=== PATIENT | female | born 1940 | race African-American/Black ===

== ENCOUNTER 2020-03-07 12:06 | Outpatient (CLI) | payer MEDICARE, BC ==
--- NOTE | 2020-03-07 12:20 | CT ---
EXAM: Brain CTWithout contrast: HISTORY: Weakness COMPARISON: None FINDINGS: Mild atrophy and chronic white matter ischemic change. No focal mass or midline shift. No intra or extra-axial hemorrhage. Sinuses and mastoids are clear of acute process. IMPRESSION: No mass or bleed or other significant acute intracranial process.
== END 2020-03-07 12:07 | disposition home or self-care (01) ==
LOC: CT 12:06
DX: R53.1 Weakness (principal)
CPT/HCPCS: 70450

== ENCOUNTER 2020-04-04 21:05 | Inpatient (IN) | payer MEDICARE, BC ==
--- NOTE | 2020-04-04 21:28 | CT ---
EXAM: CT brain without contrast HISTORY: Right-sided weakness that is partially resolved COMPARISON: 03/07/2020 TECHNIQUE: Multiple contiguous axial images were obtained and a CT of the brain without contrast. FINDINGS: Intracranial vascular calcifications are seen. There are scattered hypodensities in the sub cortical and periventricular white matter consistent with small vessel ischemic disease. There is no evidence of hydrocephalus, intracranial hemorrhage, or extra-axial fluid collection. The calvarium and overlying soft tissues are unremarkable. The visualized paranasal sinuses and masto id air cells are well aerated. IMPRESSION: No evidence of acute intracranial abnormality Dr. Tobias notified of findings at 9:26 PM on 04/04/2020
[2020-04-04 21:32] LABS: Hemoglobin 10.9 g/dL (12.0-16.0); Mean Corpuscular HGB CONC 32.4 g/dL (32.0-36.0); Mean Corpuscular Hemoglobin 27.7 pg (27.0-31.0); Mean Corpuscular Volume 85.5 fL (78.0-98.0); Mean Platelet Volume 8.7 fL (7.4-10.4); Platelet Count 305 thou/uL (130-400); RBC Distribution Width 13.9 % (11.5-14.5); Red Blood Cell (RBC) Count 3.93 mill/uL (4.20-5.40); White Blood Cell (WBC) Count 17.3 thou/uL (4.8-10.8)
[2020-04-04 21:45] LABS: ALT (SGPT) 26 U/L (8-55); AST (SGOT) 19 U/L (5-34); Albumin 3.3 g/dL (3.4-4.8); Alkaline Phosphatase 87 U/L (40-110); Anion Gap 16 mmol/L (10-20); BUN (Urea Nitrogen) 102 mg/dL (9.8-20.1); Bilirubin, Total 0.3 mg/dL (0.2-1.2); Calc. Creatinine Clearance 0 mL/min (70-130); Calcium 9.6 mg/dL (7.8-10.44); Carbon Dioxide 16 mmol/L (23-31); Chloride 106 mmol/L (98-107); Globulin 3.5 g/dL (2.4-3.5); Glucose 153 mg/dL (83-110); Potassium 5.7 mmol/L (3.5-5.1); Protein, Total 6.8 g/dL (5.8-8.1); Sodium 132 mmol/L (136-145)
[2020-04-04 21:55] LABS: Band 2 % (5-11); Eosinophils 4 % (0-10); Lymphocytes 8 % (21-51); MDiff Complete? YES; Monocytes 3 % (0-10); Neutrophil 83 % (42-75)
[2020-04-04 22:11] LABS: Acetaminophen Less than 6.0 mcg/mL (10.0-30.0); Alcohol Less than 10 mg/dL (Less than 10); Salicylate Less than 8.0 mg/dL (15.0-30.0)
--- NOTE | 2020-04-04 22:22 | RAD ---
EXAM: Single view of the chest HISTORY: Sepsis and stroke COMPARISON: 03/16/2005 FINDINGS: Single view of the chest shows a normal sized cardiomediastinal silhouette. Bilateral pulm onary vascular congestion is seen. There is no evidence of consolidation, mass, or pleural effusion. Degenerative changes are seen in the spine. IMPRESSION: No evidence of acute cardiopulmonary disease
[2020-04-04 22:43] LABS: Bacteria/HPF 4+ HPF (None Seen); Bilirubin Negative (Negative); Blood, Urine 2+ (Negative); Clarity Extra Turbid (Clear); Glucose, Urine (Dipstick) Normal (Negative); Ketone, Urine Negative (Negative); Leukocyte 500 Leu/uL (Negative); Nitrite Negative (Negative); Protein, Urine (Dipstick) 300 mg/dL (Neg-Trace); RBC/HPF Greater than 50 HPF (0-3); Specific Gravity, Urine 1.017 (1.002-1.036); Squamous Epithelial None Seen HPF (0-3); Urobilinogen Normal mg/dL (Less than 2); WBC/HPF Greater than 50 HPF (0-3); pH, Urine 7.5 (5.0-9.0)
[2020-04-04] MEDS ORDERED: Piperacillin/Tazobactam 4.5 GM VIAL ONE (22:53)
[2020-04-04 22:54] LABS: Amphetamine Not Detected (NotDetected); Barbiturates Screen Not Detected (NotDetected); Benzodiazepine Screen Detected (NotDetected); Cocaine Metabolite Screen Not Detected (NotDetected); Medtox Control Line Valid? VALID (VALID); Medtox Reader # READER 4; Methadone Not Detected (NotDetected); Methamphetamine Not Detected (NotDetected); Opiate Screen Not Detected (NotDetected); Oxycodone Screen Not Detected (NotDetected); Phencyclidine (PCP) Not Detected (NotDetected); THC/Cannabinoid Screen Not Detected (NotDetected); Tricyclic Screen Not Detected (NotDetected)
--- NOTE | 2020-04-04 23:20 | PDOC.HHP ---
Hospitalist ERICA AMS History of Present Illness: This is an 79-year-old female patient with a history of diabetes mellitus type 2, obesity, SHARLENE, gout arthritis and bilateral lower limb weakness who was brought in by EMS due to concerns of right-sided stroke. She was brought in by EMS however at presentation she was able to move all her limbs spontaneously. She was however generally weak. Initial vital signs BP 118/55, respiratory rate 14, pulse 72, saturating 100% on room air temperature 98.1. WBC was 17.3, hemoglobin 10.9, platelets 305, sodium 132, potassium 5.7 creatinine 3.58 from a baseline of 0.99 about 3 weeks ago. UDS detected benzodiazepines and urinalysis concerning for extra turbid urine with 300 protein, 500 leukocyte esterases and greater than 50 red blood cells and WBCs. Urine bacteria is 4+. Chest x-ray showed no evidence of acute cardiopulmonary process. Head CT revealed no evidence of acute intracranial abnormality. She was assessed to have UTI and started on vancomycin and Zosyn. She also received 1 L normal saline. Hospitalist team consulted for admission. Allergies/Adverse Reactions: Allergy/AdvReac Type Severity Reaction Status Date / Time No Known Drug Allergies Allergy Unverified 04/05/20 00:09 Home Medications: Medication Instructions Recorded Confirmed Type Allopurinol [Zyloprim] 300 mg PO DAILY 04/05/20 04/05/20 History Amlodipine [Norvasc] 1 tab PO HS 04/05/20 04/05/20 History Aspirin 1 tab PO HS 04/05/20 04/05/20 History Atorvastatin Calcium [Lipitor] 1 tab PO HS 04/05/20 04/05/20 History Famotidine 1 tab PO DAILY 04/05/20 04/05/20 History Gabapentin 1 tab PO BID 04/05/20 04/05/20 History HumaLOG [HumaLOG Vial] 04/05/20 History Hydrochlorothiazide 1 tab PO DAILY 04/05/20 04/05/20 History Levothyroxine Sodium 1 tab PO DAILY 04/05/20 04/05/20 History [Levothyroxine] Lisinopril 1 tab PO DAILY 04/05/20 04/05/20 History Metoprolol Tartrate 2 tab PO DAILY 04/05/20 04/05/20 History Oxybutynin [Ditropan] 1 tab PO BID PRN 04/05/20 04/05/20 History glipiZIDE [Glipizide] 1 tablet PO BID 04/05/20 04/05/20 History metFORMIN [Glucophage] 1 tab PO BID 04/05/20 04/05/20 History traMADol HCl [Tramadol HCl] 1 tab PO Q4HR PRN 04/05/20 04/05/20 History Past History: PMHx:Obesity, SHARLENE, hypertension, GERD, gout, osteoarthritis, overactive bladder. PSHx: No significant history FHx: None of significance Social: No alcohol or smoking history. Lives in skilled nursing Hospitalist Exam General Appearance: awake alert ENT: normocephalic atraumatic Heart: RRR, no murmur, no gallops, no rubs Respiratory: CTAB, no wheezes, no ronchi Gastrointestinal: soft, non-tender, non-distended, normal bowel sounds Extremities: no cyanosis, no clubbing, no edema Extremities - other findings: Bilateral ankle and shoulder tenderness Neurological: cranial nerve grossly intact, no focal deficits Psychiatric: normal affect, normal behavior, A&O x 3 Hospitalist Results Result Diagrams: 04/04/20 21:13 04/04/20 21:13 Lab results: Laboratory Last Values WBC 17.3 thou/uL (4.8-10.8) H 04/04/20 21:13 RBC 3.93 mill/uL (4.20-5.40) L 04/04/20 21:13 Hgb 10.9 g/dL (12.0-16.0) L 04/04/20 21:13 Hct 33.6 % (36.0-47.0) L 04/04/20 21:13 MCV 85.5 fL (78.0-98.0) 04/04/20 21:13 MCH 27.7 pg (27.0-31.0) 04/04/20 21:13 MCHC 32.4 g/dL (32.0-36.0) 04/04/20 21:13 RDW 13.9 % (11.5-14.5) 04/04/20 21:13 Plt Count 305 thou/uL (130-400) 04/04/20 21:13 MPV 8.7 fL (7.4-10.4) 04/04/20 21:13 Neutrophils % (Manual) 83 % (42-75) H 04/04/20 21:13 Band Neuts % (Manual) 2 % (5-11) L 04/04/20 21:13 Lymphocytes % (Manual) 8 % (21-51) L 04/04/20 21:13 Monocytes % (Manual) 3 % (0-10) 04/04/20 21:13 Eosinophils % (Manual) 4 % (0-10) 04/04/20 21:13 Lymphocytes # Not Reportable 04/04/20 21:13 Sodium 132 mmol/L (136-145) L 04/04/20 21:13 Potassium 5.7 mmol/L (3.5-5.1) H 04/04/20 21:13 Chloride 106 mmol/L (98-107) 04/04/20 21:13 Carbon Dioxide 16 mmol/L (23-31) L 04/04/20 21:13 Anion Gap 16 mmol/L (10-20) 04/04/20 21:13 BUN 102 mg/dL (9.8-20.1) H 04/04/20 21:13 Creatinine 3.58 mg/dL (0.6-1.1) H 04/04/20 21:13 Estimated GFR (MDRD) 15 04/04/20 21:13 Glucose 153 mg/dL (83-110) H 04/04/20 21:13 POC Glucose 153 mg/dL (70-100) H 04/04/20 21:08 Lactic Acid 1.9 mmol/L (0.5-2.2) 04/04/20 22:34 Calcium 9.6 mg/dL (7.8-10.44) 04/04/20 21:13 Total Bilirubin 0.3 mg/dL (0.2-1.2) 04/04/20 21:13 AST 19 U/L (5-34) 04/04/20 21:13 ALT 26 U/L (8-55) 04/04/20 21:13 Alkaline Phosphatase 87 U/L (40-110) 04/04/20 21:13 Serum Total Protein 6.8 g/dL (5.8-8.1) 04/04/20 21:13 Albumin 3.3 g/dL (3.4-4.8) L 04/04/20 21:13 Globulin 3.5 g/dL (2.4-3.5) 04/04/20 21:13 Albumin/Globulin Ratio 0.9 g/dL (1.2-2.2) L 04/04/20 21:13 Urine Color [place] (Yellow) 04/04/20 22:30 Urine Clarity Extra Turbid (Clear) A 04/04/20 22:30 Urine pH 7.5 (5.0-9.0) 04/04/20 22:30 Ur Specific [place] 1.017 (1.002-1.036) 04/04/20 22: Urine Protein 300 mg/dL (Neg-Trace) A 04/04/20: Urine Glucose (UA) Normal mg/dL (Negative) 04/04/20: Urine Ketones Negative mg/dL (Negative) 04/04/20 22: Urine Blood 2+ (Negative) A 04/04/20: Urine Nitrite Negative (Negative) 04/04/20: Urine Bilirubin Negative (Negative) 04/04/20: Urine Urobilinogen Normal mg/dL (Less than 2) 04/04/20:30 Ur Leukocyte Esterase 500 Louise/uL (Negative) A 04/04/20: Urine RBC Greater than 50 HPF (0-3) A 04/04/20:30 Urine WBC Greater than 50 HPF (0-3) A 04/04/20:30 Ur Squamous Epith Cells None Seen HPF (0-3) 04/04/20 22:30 Urine Bacteria 4+ HPF (None Seen) A 04/04/20:30 Salicylates Less than 8.0 mg/dL (15.0-30.0) L 04/04/20 21:13 Urine Opiates Screen Not Detected (NotDetected) 04/04/20 22: Ur Oxycodone Screen Not Detected (NotDetected) 04/04/20 22: Urine Methadone Screen Not Detected (NotDetected) 04/04/20 22:30 Ur Propoxyphene Screen Not Detected (NotDetected) 04/04/20 22: Acetaminophen Less than 6.0 mcg/mL (10.0-30.0) L 04/04/20 21: Ur Barbiturates Screen Not Detected (NotDetected) 04/04/20 22:30 Ur Tricyclics Screen Not Detected (NotDetected) 04/04/20 22:30 Ur Phencyclidine Scrn Not Detected (NotDetected) 04/04/20 22:30 Ur Amphetamines Screen Not Detected (NotDetected) 04/04/20 22:30 U Methamphetamines Scrn Not Detected (NotDetected) 04/04/20 22:30 U Benzodiazepines Scrn Detected (NotDetected) H 04/04/20 22:30 U Cocaine Metab Screen Not Detected (NotDetected) 04/04/20 22:30 U Cannabinoids Screen Not Detected (NotDetected) 04/04/20 22:30 Drug Screen Comment () 04/04/20 22:30 Plasma Alcohol Less than 10 mg/dL (Less than 10) 04/04/20 21:13 Hospitalist H&P A/P Plan: This is an 79-year-old female patient history of SHARLENE, gout, arthritis hypertension and diabetes mellitus who presents on account of altered mental status and weakness likely secondary to urinary tract infection. Acute encephalopathy Likely secondary to UTI Treat UTI blood cultures Received Vanco and Zosyn Continue on Zosyn for now Follow-up. Urinary tract infection We will treat as above Hyperkalemia Potassium 5.7 We will monitor Give insulin and glucose Kayexalate. Hyponatremia Mild Monitor BMP TONY Creatinine at 3.58 from a baseline of 0.993 weeks ago. This is probably prerenal Received 1 L normal saline we will continue hydration Repeat BMP in a.m. Nephrology consult if worsens. Hypokalemia potassium 5.7 Likely due to TONY No concerning EKG changes Gout with mild flare Start prednisone on account of TONY Monitor VT prophylaxisHeparin
[2020-04-04] MEDS ORDERED: Vancomycin 1 GM/200 ML BAG ONE (23:36)
[2020-04-05 00:57] VITALS: BMI 35.2
[2020-04-05] MEDS ORDERED: Sodium Chloride 0.9% 1,000 ML IV SCH (01:00)
[2020-04-05] MEDS ORDERED: predniSONE 20 MG TAB PO SCH (01:00)
[2020-04-05 05:10] LABS: Chloride 109 mmol/L (98-107); Potassium 5.3 mmol/L (3.5-5.1); Sodium 135 mmol/L (136-145)
[2020-04-05 05:11] LABS: Calcium 9.6 mg/dL (7.8-10.44); Glucose 117 mg/dL (83-110)
[2020-04-05 05:13] LABS: Anion Gap 18 mmol/L (10-20); Carbon Dioxide 13 mmol/L (23-31)
[2020-04-05 05:15] LABS: BUN (Urea Nitrogen) 95 mg/dL (9.8-20.1); Calc. Creatinine Clearance 18 mL/min (70-130)
[2020-04-05] MEDS: Piperacillin/Tazobactam 2.25 GM in Sodium Chloride 0.9% 100 ML IVPB SCH ×3 (06:02→20:35)
[2020-04-05] MEDS ORDERED: Morphine 2 MG/ML VIAL SLOW IVP SCH (06:30)
[2020-04-05] MEDS ORDERED: Ondansetron PF 4 MG/2 ML Vial IVP PRN (07:34)
[2020-04-05] MEDS ORDERED: GUAIFENESIN SF SOLN 200 MG/10 ML UDCUP PO PRN (07:34)
[2020-04-05] MEDS ORDERED: Loperamide HCl 2 MG CAP PO PRN (07:34)
[2020-04-05] MEDS ORDERED: Cepastat Lozenges 1 LOZ PO PRN (07:34)
[2020-04-05] MEDS ORDERED: hydrALAZINE 20 MG/ML VIAL SLOW IVP PRN (07:34)
[2020-04-05] MEDS ORDERED: Calcium Carbonate 500 MG ChewTAB PO PRN (07:34)
[2020-04-05] MEDS ORDERED: Zolpidem Tartrate 5 MG TAB PO PRN (07:34)
[2020-04-05] MEDS ORDERED: Sodium Chloride 0.65% Nasal 44 ML BOT EA NARE PRN (07:34)
[2020-04-05] MEDS ORDERED: HYDROcodone/Acetaminophen 5/325 mg Tablet PO PRN (07:34)
[2020-04-05] MEDS ORDERED: Ondansetron ODT 4 MG TAB SL PRN (07:34)
[2020-04-05] MEDS ORDERED: Loratadine 10 MG TAB PO PRN (07:34)
[2020-04-05] MEDS ORDERED: Senokot S 8.6-50 MG TAB PO PRN (07:34)
[2020-04-05] MEDS ORDERED: Bisacodyl 5 MG TAB PO PRN (07:34)
[2020-04-05] MEDS ORDERED: Dextrose 5% in Water 1,000 ML IV PRN (07:37)
[2020-04-05] MEDS ORDERED: Dextrose 50% Abboject 50 ML SYRINGE SLOW IVP PRN (07:37)
[2020-04-05] MEDS ORDERED: HumaLOG 300 UNITS/3 ML VIAL SC PRN (07:37)
[2020-04-05 07:50] LABS: Band 4 % (5-11); Eosinophils 5 % (0-10); Lymphocytes 5 % (21-51); MDiff Complete? YES; Mean Corpuscular HGB CONC 33.5 g/dL (32.0-36.0); Mean Corpuscular Volume 86.5 fL (78.0-98.0); Mean Platelet Volume 8.5 fL (7.4-10.4); Monocytes 5 % (0-10); Neutrophil 81 % (42-75); Platelet Count 215 thou/uL (130-400); Platelet Morphology Comment Appears Adequate; RBC Distribution Width 13.8 % (11.5-14.5); White Blood Cell (WBC) Count 21.8 thou/uL (4.8-10.8)
[2020-04-05] MEDS ORDERED: FLU VACC QS2020-21(65YR UP)/PF 240 MCG/0.7 ML SYRINGE IM ONE (09:00)
[2020-04-05] MEDS ORDERED: Heparin 5,000 UNITS/ML VIAL SC SCH (09:00)
[2020-04-05] MEDS: Famotidine 20 MG TAB PO SCH (09:42)
[2020-04-05 09:43] LABS: SARS-CoV-2 PCR by NAA Not Detected (NotDetected)
--- NOTE | 2020-04-05 09:44 | ULT ---
Exam: Bilateral renal ultrasound complete: HISTORY: A KI, acute kidney injury COMPARISON: None FINDINGS: Right kidney: 8.1 x 3.5 x 3.8 cm Left kidney: 9.6 x 4.6 x 4.9 cm No renal hydronephrosis. No evidence for abnormal perinephric process. No solid or cystic renal mass. Unremarkable appearing bladder. IMPRESSION: Unremarkable bilateral renal ultrasound. No hydronephrosis or perinephric process.
[2020-04-05] MEDS ORDERED: Dextrose 5% in Water 1,000 ML IV SCH (09:45)
--- NOTE | 2020-04-05 09:48 | PDOC.HOSPP ---
- Subjective Encounter Date: 04/05/20 Encounter Time: 08:30 Subjective: Patient seen and examined. No new complaints. No overnight events - Objective Vital Signs & Weight: Vital Signs (12 hours) Temp Pulse Resp BP Pulse Ox 04/05/20 07:29 98.3 F 79 16 98/63 100 04/05/20 05:07 97.3 F L 79 18 123/78 100 04/05/20 00:35 98.1 F 75 18 119/72 98 Weight Weight 174 lb 3.2 oz Result Diagrams: 04/05/20 07:28 04/05/20 04:40 Additional Labs: Accuchecks 04/05/20 04/04/20 04:57 21:08 POC Glucose 108 H 153 H Radiology Reviewed by me: Yes (Renal ultrasound normal) Hospitalist ROS - Review of Systems ROS unobtainable: due to mental status Constitutional: reports: weakness, malaise. denies: fever, chills, sweats, other Respiratory: denies: cough, dry, shortness of breath, hemoptysis, SOB with excertion, pleuritic pain, sputum, wheezing, other Cardiovascular: denies: chest pain, palpitations, orthopnea, paroxysmal noc. dyspnea, edema, light headedness, other Gastrointestinal: denies: nausea, vomiting, abdominal pain, diarrhea, constipation, melena, hematochezia, other Genitourinary: denies: dysuria, frequency, incontinence, hematuria, retention, other Musculoskeletal: denies: neck pain, shoulder pain, arm pain, back pain, hand pain, leg pain, foot pain, other Other: Review of system limited due to cognitive status - Medication Medications: Active Medications Generic Name Dose Route Start Last Admin Trade Name Freq PRN Reason Stop Dose Admin Piperacillin Sod/Tazobactam 100 mls @ 200 mls/hr 04/05/20 06:00 04/05/20 06:02 Sod 2.25 gm/ Sodium Chloride IVPB 100 mls Q8HR ALECIA Administration Sodium Chloride 1,000 mls @ 100 mls/hr 04/05/20 01:00 04/05/20 02:57 Normal Saline 0.9% IV 1,000 mls .Q10H ALECIA Administration Hospitalist Exam Vitals: Vital Signs (12 hours) Temp Pulse Resp BP Pulse Ox 01/31/21 07:29 98.3 F 79 16 98/63 100 04/05/20 05:07 97.3 F L 79 18 123/78 100 04/05/20 00:35 98.1 F 75 18 119/72 98 Weight Weight 174 lb 3.2 oz General Appearance: NAD, awake alert Eye: PERRL, anicteric sclera ENT: normocephalic atraumatic, no oropharyngeal lesions, dry oral mucosa Neck: symmetric, no JVD, no thyromegaly Heart: RRR, no murmur, no gallops, no rubs Respiratory: no wheezes, no rales, no ronchi Gastrointestinal: soft, non-tender, non-distended, normal bowel sounds Extremities: no cyanosis, no clubbing, no edema Skin: normal turgor, no lesions Neurological: no focal deficits Musculoskeletal: normal tone, normal strength Psychiatric: normal affect, normal behavior Hosp A/P (1) Acute kidney failure Status: Acute (2) Metabolic acidosis Code(s): E87.2 - ACIDOSIS Status: Acute (3) Hyperkalemia Code(s): E87.5 - HYPERKALEMIA Status: Acute (4) Sepsis with metabolic encephalopathy Code(s): A41.9 - SEPSIS, UNSPECIFIED ORGANISM; R65.20 - SEVERE SEPSIS WITHOUT SEPTIC SHOCK; G93.41 - METABOLIC ENCEPHALOPATHY Status: Acute (5) UTI (urinary tract infection) Status: Acute Qualifiers: Urinary tract infection type: acute cystitis Hematuria presence: without hematuria Qualified Code(s): N30.00 - Acute cystitis without hematuria (6) Obesity (BMI 30-39.9) Code(s): E66.9 - OBESITY, UNSPECIFIED Status: Chronic (7) Diabetes type 2, controlled Code(s): E11.9 - TYPE 2 DIABETES MELLITUS WITHOUT COMPLICATIONS Status: Chronic Qualifiers: Diabetes mellitus middle or intermediate school principal insulin use: with fdc use Diabetes mellitus complication status: without complication Qualified Code(s): E11.9 - Type 2 diabetes mellitus without complications; Z79.4 - jail (current) use of insulin (8) Hypertension Code(s): I10 - ESSENTIAL (PRIMARY) HYPERTENSION Status: Chronic (9) Dyslipidemia Code(s): E78.5 - HYPERLIPIDEMIA, UNSPECIFIED Status: Chronic (10) Hypothyroidism Code(s): E03.9 - HYPOTHYROIDISM, UNSPECIFIED Status: Chronic Qualifiers: Hypothyroidism type: unspecified Qualified Code(s): E03.9 - Hypothyroidism, unspecified (11) Gout Code(s): M10.9 - GOUT, UNSPECIFIED Status: Chronic Qualifiers: Gout etiology: unspecified cause Chronicity: chronic Laterality: unspecified laterality Presence of tophus: without tophus - Plan old records reviewed/req, plan discussed w/ family, continue antibiotics, DVT proph w/heparin Because of acute kidney failure with metabolic acidosis and hyperkalemia we will change IV fluid to dextrose water with 3 ampoules of sodium bicarbonate at 125 mill per hour, will repeat laboratory parameters tomorrow Continue Zosyn as per renally adjusted dose, follow-up on culture result, Renal ultrasound ordered and unremarkable Discussed with the patient's family member and updated about plan of care I have reconciled her home medication, Monitor blood sugar and replace according to sliding scale Medication reviewed and continue provide symptomatic and supportive care
[2020-04-05 10:33] LABS: CRP (Inflammatory) 4.14 mg/dL (= or < 0.5); Uric Acid 4.6 mg/dL (2.6-6.0)
[2020-04-05] MEDS: Sodium Bicarbonate 150 MEQ in Dextrose 5% in Water 1,000 ML IV SCH ×2 (11:12→20:22)
[2020-04-05] MEDS: HumaLOG 300 UNITS/3 ML VIAL SC PRN (18:20)
[2020-04-05] MEDS: Atorvastatin Calcium 20 MG TAB PO SCH (20:18)
[2020-04-05] MEDS: Heparin 5,000 UNITS/ML VIAL SC SCH (20:22)
[2020-04-06] MEDS: Sodium Bicarbonate 150 MEQ in Dextrose 5% in Water 1,000 ML IV SCH (05:14)
[2020-04-06] MEDS: Piperacillin/Tazobactam 2.25 GM in Sodium Chloride 0.9% 100 ML IVPB SCH (05:14)
[2020-04-06] MEDS: HumaLOG 300 UNITS/3 ML VIAL SC PRN ×2 (05:16→16:42)
[2020-04-06] MEDS: Levothyroxine Sodium 100 MCG TAB PO SCH (05:16)
[2020-04-06 07:35] LABS: ALT (SGPT) 19 U/L (8-55); AST (SGOT) 12 U/L (5-34); Albumin 3.2 g/dL (3.4-4.8); Alkaline Phosphatase 88 U/L (40-110); Anion Gap 14 mmol/L (10-20); BUN (Urea Nitrogen) 56 mg/dL (9.8-20.1); Bilirubin, Total 0.3 mg/dL (0.2-1.2); Calc. Creatinine Clearance 34 mL/min (70-130); Calcium 9.8 mg/dL (7.8-10.44); Carbon Dioxide 22 mmol/L (23-31); Chloride 106 mmol/L (98-107); Globulin 3.3 g/dL (2.4-3.5); Glucose 247 mg/dL (83-110); Potassium 5.2 mmol/L (3.5-5.1); Protein, Total 6.5 g/dL (5.8-8.1); Sodium 137 mmol/L (136-145)
[2020-04-06 07:50] LABS: Hemoglobin 9.8 g/dL (12.0-16.0); Mean Corpuscular HGB CONC 32.4 g/dL (32.0-36.0); Mean Corpuscular Hemoglobin 27.4 pg (27.0-31.0); Mean Corpuscular Volume 84.6 fL (78.0-98.0); Mean Platelet Volume 8.8 fL (7.4-10.4); Platelet Count 235 thou/uL (130-400); RBC Distribution Width 13.5 % (11.5-14.5); Red Blood Cell (RBC) Count 3.59 mill/uL (4.20-5.40); White Blood Cell (WBC) Count 16.5 thou/uL (4.8-10.8)
[2020-04-06] MEDS ORDERED: predniSONE 20 MG TAB PO SCH (08:00)
[2020-04-06 08:53] LABS: Band 5 % (5-11); Lymphocytes 13 % (21-51); MDiff Complete? YES; Monocytes 8 % (0-10); Neutrophil 72 % (42-75); Platelet Morphology Comment Appears Adequate; Polychromasia SLIGHT = 2-3 cells (100X) (0-2/hpf); Reactive Lymphocytes 2 % (0-10)
[2020-04-06] MEDS ORDERED: Metoprolol Tartrate 50 MG TAB PO SCH (09:00)
[2020-04-06] MEDS ORDERED: glipiZIDE 10 MG TAB PO SCH (09:00)
[2020-04-06] MEDS ORDERED: Gabapentin 300 MG CAP PO SCH (09:00)
[2020-04-06] MEDS: Saccharomyces boulardii 250 MG CAP PO SCH (10:02)
[2020-04-06] MEDS: Famotidine 20 MG TAB PO SCH (10:02)
[2020-04-06] MEDS: Gabapentin 100 MG CAP PO SCH ×2 (10:02→19:55)
[2020-04-06] MEDS: Metoprolol Tartrate 25 MG TAB PO SCH ×2 (10:02→19:55)
[2020-04-06] MEDS: Aspirin 325 MG TAB PO SCH (10:02)
[2020-04-06] MEDS: Heparin 5,000 UNITS/ML VIAL SC SCH ×2 (10:03→19:55)
[2020-04-06] MEDS: cefTRIAXone\\ROCEPHIN 1 GM in Sodium Chloride 0.9% 100 ML IVPB SCH (10:04)
[2020-04-06] MEDS: Sodium Chloride 0.45% 1,000 ML IV SCH ×3 (10:04→19:53)
[2020-04-06] MEDS: Allopurinol 300 MG TAB PO SCH (10:16)
--- NOTE | 2020-04-06 10:48 | PDOC.HOSPP ---
- Subjective Encounter Date: 04/06/20 Encounter Time: 08:30 Subjective: Patient seen and examined. No overnight events - Objective Vital Signs & Weight: Vital Signs (12 hours) Temp Pulse Resp BP Pulse Ox 04/06/20 07:00 98.5 F 97 18 125/74 99 04/05/20 23:50 98.0 F 103 H 18 124/74 100 Weight Weight 174 lb 3.2 oz I&O: 04/05/20 04/06/20 04/07/20 06:59 06:59 06:59 Intake Total 1930 Output Total 1100 Balance 830 Result Diagrams: 04/06/20 07:10 04/06/20 07:10 Additional Labs: Accuchecks 04/06/20 04/05/20 04/05/20 05:14 20:16 16:05 POC Glucose 276 H 402 H 376 H 04/05/20 11:35 POC Glucose 232 H Hospitalist ROS - Review of Systems Respiratory: denies: cough, dry, shortness of breath, hemoptysis, SOB with excertion, pleuritic pain, sputum, wheezing, other Cardiovascular: denies: chest pain, palpitations, orthopnea, paroxysmal noc. dyspnea, edema, light headedness, other Gastrointestinal: denies: nausea, vomiting, abdominal pain, diarrhea, constipation, melena, hematochezia, other Genitourinary: denies: dysuria, frequency, incontinence, hematuria, retention, other Musculoskeletal: denies: neck pain, shoulder pain, arm pain, back pain, hand pain, leg pain, foot pain, other - Medication Medications: Active Medications Generic Name Dose Route Start Last Admin Trade Name Freq PRN Reason Stop Dose Admin Hydrocodone Bitart/Acetaminophen 1 tab 04/05/20 07:34 04/06/20 10:43 Hydrocodone/Acetaminophen 5/325 Mg Tablet PO 1 tab Q4H PRN Administration Moderate Pain (4-6) Allopurinol 300 mg 04/06/20 09:00 04/06/20 10:16 Allopurinol 300 Mg Tab PO 300 mg DAILY ALECIA Administration Aspirin 325 mg 04/06/20 09:00 04/06/20 10:02 Aspirin 325 Mg Tab PO 325 mg DAILY ALECIA Administration Atorvastatin Calcium 20 mg 04/05/20 21:00 04/05/20 20:18 Atorvastatin Calcium 20 Mg Tab PO 20 mg HS ALECIA Administration Famotidine 20 mg 04/05/20 09:00 04/06/20 10:02 Famotidine 20 Mg Tab PO 20 mg DAILY ALECIA Administration Gabapentin 100 mg 04/06/20 09:00 04/06/20 10:02 Gabapentin 100 Mg Cap PO 100 mg BID ALECIA Administration Heparin Sodium (Porcine) 5,000 units 04/05/20 21:00 04/06/20 10:03 Heparin 5,000 Units/Ml Vial SC 5,000 units Q12HR ALECIA Administration Ceftriaxone Sodium 1 gm/ 100 mls @ 200 mls/hr 04/06/20 09:00 04/06/20 10:04 Sodium Chloride IVPB 100 mls 0900 ALECIA Administration Sodium Chloride 1,000 mls @ 100 mls/hr 04/06/20 08:15 04/06/20 10:04 1/2 Normal Saline IV 1,000 mls .Q10H ALECIA Administration Insulin Human Lispro 0 units 04/05/20 07:37 04/06/20 05:16 Humalog 300 Units/3 Ml Vial SC 4 unit .MILD SLIDING SCALE PRN Administration Mild Correctional Scale Insulin Human Lispro 0 units 04/05/20 07:37 04/05/20 20:36 Humalog 300 Units/3 Ml Vial SC 5 units .BEDTIME SLIDING SC PRN Administration Bedtime Correctional Scale Levothyroxine Sodium 100 mcg 04/06/20 06:00 04/06/20 05:16 Levothyroxine Sodium 100 Mcg Tab PO 100 mcg 0600 ALECIA Administration Metoprolol Tartrate 25 mg 04/06/20 09:00 04/06/20 10:02 Metoprolol Tartrate 25 Mg Tab PO 25 mg Q12HR ALECIA Administration Saccharomyces Boulardii 250 mg 04/06/20 09:00 04/06/20 10:02 Saccharomyces Boulardii 250 Mg Cap PO 250 mg DAILY ALECIA Administration Hospitalist Exam Vitals: Vital Signs (12 hours) Temp Pulse Resp BP Pulse Ox 04/06/20 07:00 98.5 F 97 18 125/74 99 04/05/20 23:50 98.0 F 103 H 18 124/74 100 Weight Weight 174 lb 3.2 oz General Appearance: NAD, awake alert Eye: PERRL, anicteric sclera ENT: normocephalic atraumatic, no oropharyngeal lesions Neck: supple, symmetric, no JVD, no thyromegaly Heart: RRR, no murmur, no gallops, no rubs Respiratory: no wheezes, no rales, no ronchi Gastrointestinal: soft, non-tender, non-distended, normal bowel sounds Extremities: no cyanosis, no clubbing, no edema Skin: normal turgor, no lesions Neurological: no new deficit Musculoskeletal: normal tone, normal strength Psychiatric: normal affect, normal behavior Hosp A/P (1) Acute kidney failure Status: Acute (2) Metabolic acidosis Code(s): E87.2 - ACIDOSIS Status: Acute (3) Hyperkalemia Code(s): E87.5 - HYPERKALEMIA Status: Acute (4) Sepsis with metabolic encephalopathy Code(s): A41.9 - SEPSIS, UNSPECIFIED ORGANISM; R65.20 - SEVERE SEPSIS WITHOUT SEPTIC SHOCK; G93.41 - METABOLIC ENCEPHALOPATHY Status: Acute (5) UTI (urinary tract infection) Status: Acute Qualifiers: Urinary tract infection type: acute cystitis Hematuria presence: without hematuria Qualified Code(s): N30.00 - Acute cystitis without hematuria (6) Obesity (BMI 30-39.9) Code(s): E66.9 - OBESITY, UNSPECIFIED Status: Chronic (7) Diabetes type 2, controlled Code(s): E11.9 - TYPE 2 DIABETES MELLITUS WITHOUT COMPLICATIONS Status: Chronic Qualifiers: Diabetes mellitus equipment operator intermodal yard insulin use: with equipment operator intermodal yard use Diabetes mellitus complication status: without complication Qualified Code(s): E11.9 - Type 2 diabetes mellitus without complications; Z79.4 - snf (current) use of insulin (8) Hypertension Code(s): I10 - ESSENTIAL (PRIMARY) HYPERTENSION Status: Chronic (9) Dyslipidemia Code(s): E78.5 - HYPERLIPIDEMIA, UNSPECIFIED Status: Chronic (10) Hypothyroidism Code(s): E03.9 - HYPOTHYROIDISM, UNSPECIFIED Status: Chronic Qualifiers: Hypothyroidism type: unspecified Qualified Code(s): E03.9 - Hypothyroidism, unspecified (11) Gout Code(s): M10.9 - GOUT, UNSPECIFIED Status: Chronic Qualifiers: Gout etiology: unspecified cause Chronicity: chronic Laterality: unspecified laterality Presence of tophus: without tophus - Plan old records reviewed/req, plan discussed w/ family, continue antibiotics, PT/OT, social sciences lecturer, DVT proph w/heparin Her kidney function significantly improving, today we will discontinue bicarbonate drip and change to half-normal saline NS at 100 mL/h and will repeat BMP tomorrow Today we will change Zosyn to Rocephin based on culture result and will consider sending her home correction with oral antibiotic Tomorrow we will repeat labs and if improving then will consider discharging tomorrow Start PT OT as tolerated Discussed with the patient's family member and updated about plan of care Medications reviewed and continue provide symptomatic and supportive care
[2020-04-06] MEDS: traMADol HCl 50 MG TAB PO PRN ×2 (12:52→20:05)
[2020-04-06] MEDS: glipiZIDE 5 MG TAB PO SCH (16:41)
[2020-04-06] MEDS: Atorvastatin Calcium 20 MG TAB PO SCH (19:55)
[2020-04-06] MEDS ORDERED: Aspirin 325 MG TAB PO SCH (21:00)
[2020-04-06] MEDS ORDERED: Amlodipine 10 MG TAB PO SCH (21:00)
[2020-04-06] MEDS ORDERED: Amlodipine 5 MG TAB PO SCH (21:00)
[2020-04-07] MEDS: Levothyroxine Sodium 100 MCG TAB PO SCH (05:34)
[2020-04-07] MEDS: Sodium Chloride 0.45% 1,000 ML IV SCH (05:34)
[2020-04-07] MEDS: traMADol HCl 50 MG TAB PO PRN (05:41)
[2020-04-07 05:46] LABS: #Basophils 0.1 thou/uL (0.0-0.2); #Eosinphils 0.6 thou/uL (0.0-0.7); #Lymphocytes 2.6 thou/uL (1.20-3.40); #Monocytes 0.8 thou/uL (0.11-0.59); #Neutrophils 10.6 thou/uL (1.40-6.50); %Basophils 0.6 % (0.0-1.0); %Eosinophils 4.2 % (0.0-10.0); %Lymphocytes 17.8 % (21.0-51.0); %Monocytes 5.2 % (0.0-10.0); %Neutrophils 72.2 % (42.0-75.0); Hemoglobin 10.1 g/dL (12.0-16.0); Mean Corpuscular HGB CONC 33.3 g/dL (32.0-36.0); Mean Corpuscular Hemoglobin 28.8 pg (27.0-31.0); Mean Corpuscular Volume 86.5 fL (78.0-98.0); Mean Platelet Volume 8.3 fL (7.4-10.4); Platelet Count 252 thou/uL (130-400); RBC Distribution Width 13.6 % (11.5-14.5); White Blood Cell (WBC) Count 14.7 thou/uL (4.8-10.8)
[2020-04-07 06:09] LABS: Anion Gap 11 mmol/L (10-20); BUN (Urea Nitrogen) 34 mg/dL (9.8-20.1); Calc. Creatinine Clearance 53 mL/min (70-130); Calcium 9.4 mg/dL (7.8-10.44); Carbon Dioxide 25 mmol/L (23-31); Chloride 106 mmol/L (98-107); Glucose 78 mg/dL (83-110); Potassium 4.8 mmol/L (3.5-5.1); Sodium 137 mmol/L (136-145)
[2020-04-07] MEDS: cefTRIAXone\\ROCEPHIN 1 GM in Sodium Chloride 0.9% 100 ML IVPB SCH (08:12)
[2020-04-07] MEDS: Famotidine 20 MG TAB PO SCH (08:12)
[2020-04-07] MEDS: glipiZIDE 5 MG TAB PO SCH (08:12)
[2020-04-07] MEDS: Aspirin 325 MG TAB PO SCH (08:12)
[2020-04-07] MEDS: Saccharomyces boulardii 250 MG CAP PO SCH (08:12)
[2020-04-07] MEDS: Metoprolol Tartrate 25 MG TAB PO SCH (08:12)
[2020-04-07] MEDS: Allopurinol 300 MG TAB PO SCH (08:12)
[2020-04-07] MEDS: Heparin 5,000 UNITS/ML VIAL SC SCH (08:13)
[2020-04-07] MEDS: Gabapentin 100 MG CAP PO SCH (08:13)
--- NOTE | 2020-04-07 10:02 | PDOC.DS.DS ---
Provider Date of Admission: 04/04/20 23:23 Date of Discharge: 04/07/20 Admitting Provider: Dante Nogueira MD Primary Care Physician: JASS PETE MD Course Hospital Course: 79-year-old female who with a past medical history of diabetes type 2 obesity obstructive sleep apnea and gout who presented to emergency room for concern for stroke, patient had altered mental status, in the emergency room CT brain was negative for any acute process, she was found with a sepsis, she had leukocytosis, she had acute kidney failure with a creatinine 3.58, her urine analysis was significantly abnormal and consistent with UTI, her chest x-ray was normal. On admission patient was not able to provide any good history, but she does not have any focal neurological deficit, she was having sepsis with acute organ dysfunction with encephalopathy and acute kidney failure, her urine culture grew Proteus mirabilis, her blood culture was negative, her leukocytosis was also improving, her renal function improved to normal, her COVID-19 was negative, urine drug screen was also unremarkable, Patient seen and examined bedside today, patient is approached to her baseline level, plan of care discussed with the family member, patient is medically stable for discharge today to group home home, paperwork for discharge done and discharge medication reconciliation done. Resuscitation Status: 04/05/20 07:36 Resuscitation Status Routine Resuscitation Status: FULL: Full Resuscitation Lab Results: 04/07/20 05:22 04/07/20 05:22 Abnormal Lab Results - Last 48 hrs 04/05/20 04:40: C-Reactive Protein 4.14 H 04/06/20 07:10: Potassium 5.2 H, Carbon Dioxide 22 L, BUN 56 H, Creatinine 1.67 H, Albumin 3.2 L, Albumin/Globulin Ratio 1.0 L 04/06/20 07:10: WBC 16.5 H, RBC 3.59 L, Hgb 9.8 L, Hct 30.4 L, Lymphocytes % (Manual) 13 L 04/07/20 05:22: BUN 34 H 04/07/20 05:22: WBC 14.7 H, RBC 3.50 L, Hgb 10.1 L, Hct 30.2 L, Lymphocytes % 17.8 L, Neutrophils # 10.6 H, Monocytes # 0.8 H Microbiology - Entire Visit 04/04/20 22:30 Urine Straight Catheter Urine Culture - Preliminary Proteus mirabilis Gram Negative Marv 04/04/20 22:34 Venous blood - Right Arm Blood Culture - Preliminary NO GROWTH AT 48 HOURS 04/04/20 22:34 Venous blood - Left Hand Blood Culture - Preliminary NO GROWTH AT 48 HOURS Vitals: Vital Signs (12 hours) Temp Pulse Resp BP Pulse Ox 04/07/20 08:09 98.3 F 90 16 141/80 H 97 Weight Admit Weight 174 lb 3.2 oz Weight 174 lb 3.2 oz Physical Exam: The patient was seen and examined on the day of discharge. General Appearance: NAD, awake alert Eye: PERRL, anicteric sclera ENT: normocephalic atraumatic, no oropharyngeal lesions Neck: supple, symmetric, no JVD, no thyromegaly Respiratory: no wheezes, no rales, no ronchi Cardiovascular: RRR, no murmur, no gallops, no rubs Gastrointestinal: soft, non-tender, non-distended, normal bowel sounds Extremities: no cyanosis, no clubbing, no edema Skin: normal turgor, no lesions Neurological: no focal deficits Musculoskeletal: normal tone, normal strength PSYCH: normal affect, normal behavior Problem (1) Sepsis with acute organ dysfunction Code(s): A41.9 - SEPSIS, UNSPECIFIED ORGANISM; R65.20 - SEVERE SEPSIS WITHOUT SEPTIC SHOCK Status: Acute Qualifiers: Severe sepsis acute organ dysfunction type: acute renal failure Acute renal failure type: unspecified Severe sepsis shock status: without septic shock (2) Acute kidney failure Status: Resolved (3) Metabolic acidosis Code(s): E87.2 - ACIDOSIS Status: Resolved (4) Hyperkalemia Code(s): E87.5 - HYPERKALEMIA Status: Resolved (5) Sepsis with metabolic encephalopathy Code(s): A41.9 - SEPSIS, UNSPECIFIED ORGANISM; R65.20 - SEVERE SEPSIS WITHOUT SEPTIC SHOCK; G93.41 - METABOLIC ENCEPHALOPATHY Status: Resolved (6) UTI (urinary tract infection) Status: Acute Qualifiers: Urinary tract infection type: acute cystitis Hematuria presence: without hematuria Qualified Code(s): N30.00 - Acute cystitis without hematuria (7) Obesity (BMI 30-39.9) Code(s): E66.9 - OBESITY, UNSPECIFIED Status: Chronic (8) Diabetes type 2, controlled Code(s): E11.9 - TYPE 2 DIABETES MELLITUS WITHOUT COMPLICATIONS Status: Chronic Qualifiers: Diabetes mellitus intermediate teacher insulin use: with intermediate teacher use Diabetes mellitus complication status: without complication Qualified Code(s): E11.9 - Type 2 diabetes mellitus without complications; Z79.4 - assisted (current) use of insulin (9) Hypertension Code(s): I10 - ESSENTIAL (PRIMARY) HYPERTENSION Status: Chronic (10) Dyslipidemia Code(s): E78.5 - HYPERLIPIDEMIA, UNSPECIFIED Status: Chronic (11) Hypothyroidism Code(s): E03.9 - HYPOTHYROIDISM, UNSPECIFIED Status: Chronic Qualifiers: Hypothyroidism type: unspecified Qualified Code(s): E03.9 - Hypothyroidism, unspecified (12) Gout Code(s): M10.9 - GOUT, UNSPECIFIED Status: Chronic Qualifiers: Gout etiology: unspecified cause Chronicity: chronic Laterality: unspecif ied laterality Presence of tophus: without tophus Plan Prescriptions: Ciprofloxacin [Cipro] 500 mg PO Q12HR #14 tab Saccharomyces boulardii [Florastor] 250 mg PO DAILY #7 cap Home Medications: Medication Instructions Recorded Confirmed Type Allopurinol [Zyloprim] 300 mg PO DAILY 04/05/20 04/05/20 History Amlodipine [Norvasc] 1 tab PO HS 04/05/20 04/05/20 History Aspirin 1 tab PO HS 04/05/20 04/05/20 History Atorvastatin Calcium [Lipitor] 1 tab PO HS 04/05/20 04/05/20 History Famotidine 1 tab PO DAILY 04/05/20 04/05/20 History Gabapentin 1 tab PO BID 04/05/20 04/05/20 History HumaLOG [HumaLOG Vial] 2 - 6 units SC TID-WM 04/05/20 04/05/20 History Hydrochlorothiazide 1 tab PO DAILY 04/05/20 04/05/20 History Levothyroxine Sodium 1 tab PO DAILY 04/05/20 04/05/20 History [Levothyroxine] Lisinopril 1 tab PO DAILY 04/05/20 04/05/20 History Metoprolol Tartrate 2 tab PO DAILY 04/05/20 04/05/20 History Oxybutynin [Ditropan] 1 tab PO BID PRN 04/05/20 04/05/20 History glipiZIDE [Glipizide] 1 tablet PO BID 04/05/20 04/05/20 History metFORMIN [Glucophage] 1 tab PO BID 04/05/20 04/05/20 History traMADol HCl [Tramadol HCl] 1 tab PO Q4HR PRN 04/05/20 04/05/20 History Ciprofloxacin [Cipro] 500 mg PO Q12HR #14 tab 04/06/20 Rx Saccharomyces boulardii [Florastor] 250 mg PO DAILY #7 cap 04/06/20 Rx Allergies: No Known Drug Allergies Allergy (Verified 04/05/20 03:51) Activity:: Activity as Tolerated Nourishment:: Diabetic Diet Therapies:: Occupational Therapy, Physical Therapy Equipment/Supplies:: Not Applicable IV Therapy:: Not Applicable Referrals: JASS PETE MD [Primary Care Provider] - Disposition: ALF FACILITY Quality CORE MEASURES:: N/A
[2020-04-07 12:30] VITALS: TEMP 98.2
[2020-04-07 15:27] VITALS: BP 144/85
== END 2020-04-07 13:08 | DRG 871 ==
LOC: ERS 21:05 → T4-A 23:23
PROVIDERS: ADMIT Student in an Organized Health Care Education/Training Program; ATTEND Internal Medicine
DX: A41.9 Sepsis, unspecified organism (principal); G93.41 Metabolic encephalopathy; Z20.822 Contact with and (suspected) exposure to COVID-19; N17.9 Acute kidney failure, unspecified; E87.2 Acidosis; N30.00 Acute cystitis without hematuria; E87.1 Hypo-osmolality and hyponatremia; R65.20 Severe sepsis without septic shock; E87.5 Hyperkalemia; E66.9 Obesity, unspecified; E11.9 Type 2 diabetes mellitus without complications; I10 Essential (primary) hypertension; E78.5 Hyperlipidemia, unspecified; E03.9 Hypothyroidism, unspecified; M10.9 Gout, unspecified; G47.33 Obstructive sleep apnea (adult) (pediatric); K21.9 Gastro-esophageal reflux disease without esophagitis; M19.90 Unspecified osteoarthritis, unspecified site; N32.81 Overactive bladder; Z68.35 Body mass index [BMI] 35.0-35.9, adult; Z79.899 Other long term (current) drug therapy; Z79.82 Long term (current) use of aspirin; Z79.890 Hormone replacement therapy; Z79.4 Long term (current) use of insulin
CPT/HCPCS: 36415; 36416; 51701; 70450; 71045; 76770; 80048; 80053; 80306; 80307; 81003; 81015; 83605; 84550; 85025; 86140; 87040; 87077; 87086; 87186; 87635; 93005; 96365; 96367; J0696; J1644; J1815; J2270; J2543; J3370; J3490; J7070; J7512; U0003; U0005

== ENCOUNTER 2020-04-12 16:23 | Inpatient (IN) | payer MEDICARE, BC ==
[2020-04-12] MEDS ORDERED: Dextrose 50% Abboject 50 ML SYRINGE ONE (17:17)
[2020-04-12 17:30] LABS: #Eosinphils 0.7 thou/uL (0.0-0.7); #Monocytes 0.7 thou/uL (0.11-0.59); #Neutrophils 10.6 thou/uL (1.40-6.50); %Basophils 0.4 % (0.0-1.0); %Eosinophils 5.1 % (0.0-10.0); %Lymphocytes 7.5 % (21.0-51.0); %Monocytes 5.6 % (0.0-10.0); %Neutrophils 81.5 % (42.0-75.0); Hemoglobin 9.2 g/dL (12.0-16.0); Mean Corpuscular HGB CONC 32.9 g/dL (32.0-36.0); Mean Corpuscular Volume 85.1 fL (78.0-98.0); Mean Platelet Volume 7.1 fL (7.4-10.4); Platelet Count 246 thou/uL (130-400); RBC Distribution Width 13.8 % (11.5-14.5); Red Blood Cell (RBC) Count 3.28 mill/uL (4.20-5.40)
[2020-04-12 17:45] LABS: Bacteria/HPF 4+ HPF (None Seen); Bilirubin Negative (Negative); Blood, Urine 2+ (Negative); Clarity Turbid (Clear); Glucose, Urine (Dipstick) Normal (Negative); Ketone, Urine Negative (Negative); Leukocyte 500 Leu/uL (Negative); Nitrite Negative (Negative); Protein, Urine (Dipstick) 30 mg/dL (Neg-Trace); RBC/HPF 21-50 HPF (0-3); Specific Gravity, Urine 1.007 (1.002-1.036); Urobilinogen Normal mg/dL (Less than 2); WBC/HPF Greater than 50 HPF (0-3)
--- NOTE | 2020-04-12 17:45 | RAD ---
PORTABLE CHEST: Date: 04-12-2019 Time: 4:50 p.m. History: Shortness of breath. Comparison: 12-04-2019 FINDINGS: The heart size is normal. No lobar consolidation, pneumothoraces, or pleural effusions are seen. IMPRESSION: No acute process. POS: PHIL
[2020-04-12 17:50] LABS: ALT (SGPT) 13 U/L (8-55); AST (SGOT) 15 U/L (5-34); Albumin 3.2 g/dL (3.4-4.8); Alkaline Phosphatase 68 U/L (40-110); Anion Gap 17 mmol/L (10-20); BUN (Urea Nitrogen) 26 mg/dL (9.8-20.1); Bilirubin, Total 0.5 mg/dL (0.2-1.2); Calc. Creatinine Clearance 0 mL/min (70-130); Carbon Dioxide 15 mmol/L (23-31); Chloride 105 mmol/L (98-107); Globulin 3.3 g/dL (2.4-3.5); Potassium 3.7 mmol/L (3.5-5.1); Protein, Total 6.5 g/dL (5.8-8.1); Sodium 133 mmol/L (136-145)
[2020-04-12 18:01] LABS: Glucose 54 mg/dL (83-110)
[2020-04-12] MEDS ORDERED: Vancomycin 1 GM/200 ML BAG ONE (18:07)
[2020-04-12] MEDS ORDERED: Cefepime 2 GM VIAL ONE (18:07)
[2020-04-12] MEDS ORDERED: Dextrose 5% in Water 1,000 ML IV PRN (19:58)
[2020-04-12] MEDS ORDERED: Dextrose 50% Abboject 50 ML SYRINGE SLOW IVP PRN (19:58)
[2020-04-12] MEDS ORDERED: Acetaminophen 650 MG Suppository PR PRN (20:00)
[2020-04-12] MEDS ORDERED: Magnesium Sulfate 4 GM in Sodium Chloride 0.9% 250 ML 250 ML IVPB SCH (20:00)
--- NOTE | 2020-04-12 20:23 | PDOC.HHP ---
Hospitalist HPI History of Present Illness: ADMISSION DATE: 04/12/2020 TIME OF ASSESSMENT: 1900 PRIMARY CARE PHYSICIAN: Dr. Hays HPI: Patient was brought into the emergency department from [facility] due to hypoglycemia. The patient apparently has not been eating well in the last few days. She had a blood glucose of 70. She has also been reportedly confused the last few days when compared to her baseline. Patient has had history of UTIs in the past with previous cultures positive for Proteus and E. coli. She had a recent admission from 04/04/2020 to 04/07/2020 after presenting with altered mental status. She was found to be septic secondary to UTI and was treated with IV antibiotics. Covid testing done at that time was negative. She was discharged on ciprofloxacin 500 mg twice daily for 7 days. ED COURSE: On arrival to the emergency department the patient had a glucose level of 54 and has had several readings in the 50s despite interventions. She was given 1 amp of D50. Also started on IV fluids with normal saline. EKG showed a heart rate of 120, sinus tachycardia Urinalysis demonstrated turbid appearing urine with 500 leukocytes, 30 protein, 2+ blood, 21-50 red blood cells, greater than 50 white blood cells, 4-6 times epithelial cells and 4+ bacteria. She was started on IV antibiotics with vancomycin and cefepime Laboratory studies notable for white blood cell count of 13, hemoglobin 9.2, hematocrit 27.9, platelets 246, neutrophils at 1.5%. Low magnesium of 1, potassium 3.7, sodium 133, BUN 26, creatinine 2.91, GFR 19. Glucose was 54 initially. Chest x-ray obtained showed no acute process Allergies/Adverse Reactions: Allergy/AdvReac Type Severity Reaction Status Date / Time No Known Drug Allergies Allergy Verified 04/05/20 03:51 Home Medications: Medication Instructions Recorded Confirmed Type Allopurinol [Zyloprim] 300 mg PO DAILY 04/05/20 04/05/20 History Amlodipine [Norvasc] 1 tab PO HS 04/05/20 04/05/20 History Aspirin 1 tab PO HS 04/05/20 04/05/20 History Atorvastatin Calcium [Lipitor] 1 tab PO HS 04/05/20 04/05/20 History Famotidine 1 tab PO DAILY 04/05/20 04/05/20 History Gabapentin 1 tab PO BID 04/05/20 04/05/20 History HumaLOG [HumaLOG Vial] 2 - 6 units SC TID-WM 04/05/20 04/05/20 History Hydrochlorothiazide 1 tab PO DAILY 04/05/20 04/05/20 History Levothyroxine Sodium 1 tab PO DAILY 04/05/20 04/05/20 History [Levothyroxine] Lisinopril 1 tab PO DAILY 04/05/20 04/05/20 History Metoprolol Tartrate 2 tab PO DAILY 04/05/20 04/05/20 History Oxybutynin [Ditropan] 1 tab PO BID PRN 04/05/20 04/05/20 History glipiZIDE [Glipizide] 1 tablet PO BID 04/05/20 04/05/20 History metFORMIN [Glucophage] 1 tab PO BID 04/05/20 04/05/20 History traMADol HCl [Tramadol HCl] 1 tab PO Q4HR PRN 04/05/20 04/05/20 History Ciprofloxacin [Cipro] 500 mg PO Q12HR #14 tab 04/06/20 Rx Saccharomyces boulardii [Florastor] 250 mg PO DAILY #7 cap 04/06/20 Rx Past History: PAST MEDICAL HISTORY: 1. Vaginal candidiasis 2. Type 2 diabetes mellitus 3. Obesity 4. Hyperlipidemia 5. Obstructive sleep apnea 6. Hypertension 7. GERD 8. Gout 9. Osteoarthritis 10. Overactive bladder PAST SURGICAL HISTORY: None SOCIAL HISTORY: Patient is bedbound at baseline and lives at [facility]. Denies any tobacco use, alcohol consumption or drug use. FAMILY HISTORY: Noncontributory Hospitalist Exam Vitals: VS: Temp 98.7, HR 118, BP 130/74, RR 15, O2 sat 97% on room air General Appearance: NAD, awake alert Eye: PERRL, anicteric sclera ENT: normocephalic atraumatic, no oropharyngeal lesions, moist mucosa Neck: supple, symmetric, no lymphadenopathy Heart: RRR, no murmur, no gallops, no rubs, normal peripheral pulses Respiratory: CTAB, no wheezes, no rales, no ronchi, normal chest expansion Gastrointestinal: soft, non-tender, non-distended, normal bowel sounds Extremities: no cyanosis, no clubbing, no edema Skin: normal turgor, no lesions, no rashes Psychiatric: oriented to person, oriented to place Psychiatric - other findings: Awake and alert, answers questions appropriately, follows commands Hospitalist Results Result Diagrams: 04/12/20 17:18 04/12/20 17:18 Lab results: Laboratory Last Values WBC 13.0 thou/uL (4.8-10.8) H 04/12/20 17:18 RBC 3.28 mill/uL (4.20-5.40) L 04/12/20 17:18 Hgb 9.2 g/dL (12.0-16.0) L 04/12/20 17:18 Hct 27.9 % (36.0-47.0) L 04/12/20 17:18 MCV 85.1 fL (78.0-98.0) 04/12/20 17:18 MCH 28.0 pg (27.0-31.0) 04/12/20 17:18 MCHC 32.9 g/dL (32.0-36.0) 04/12/20 17:18 RDW 13.8 % (11.5-14.5) 04/12/20 17:18 Plt Count 246 thou/uL (130-400) 04/12/20 17:18 MPV 7.1 fL (7.4-10.4) L 04/12/20 17:18 Neutrophils % 81.5 % (42.0-75.0) H 04/12/20 17:18 Lymphocytes % 7.5 % (21.0-51.0) L 04/12/20 17:18 Monocytes % 5.6 % (0.0-10.0) 04/12/20 17:18 Eosinophils % 5.1 % (0.0-10.0) 04/12/20 17:18 Basophils % 0.4 % (0.0-1.0) 04/12/20 17:18 Neutrophils # 10.6 thou/uL (1.40-6.50) H 04/12/20 17:18 Lymphocytes # 1.0 thou/uL (1.20-3.40) L 04/12/20 17:18 Monocytes # 0.7 thou/uL (0.11-0.59) H 04/12/20 17:18 Eosinophils # 0.7 thou/uL (0.0-0.7) 04/12/20 17:18 Basophils # 0.0 thou/uL (0.0-0.2) 04/12/20 17:18 Sodium 133 mmol/L (136-145) L 04/12/20 17:18 Potassium 3.7 mmol/L (3.5-5.1) 04/12/20 17:18 Chloride 105 mmol/L (98-107) 04/12/20 17:18 Carbon Dioxide 15 mmol/L (23-31) L 04/12/20 17:18 Anion Gap 17 mmol/L (10-20) 04/12/20 17:18 BUN 26 mg/dL (9.8-20.1) H 04/12/20 17:18 Creatinine 2.91 mg/dL (0.6-1.1) H 04/12/20 17:18 Estimated GFR (MDRD) 19 04/12/20 17:18 Glucose 54 mg/dL (83-110) L* 04/12/20 17:18 Calcium 9.0 mg/dL (7.8-10.44) 04/12/20 17:18 Magnesium 1.0 mg/dL (1.6-2.6) L 04/12/20 17:18 Total Bilirubin 0.5 mg/dL (0.2-1.2) 04/12/20 17:18 AST 15 U/L (5-34) 04/12/20 17:18 ALT 13 U/L (8-55) 04/12/20 17:18 Alkaline Phosphatase 68 U/L (40-110) 04/12/20 17:18 Serum Total Protein 6.5 g/dL (5.8-8.1) 04/12/20 17:18 Albumin 3.2 g/dL (3.4-4.8) L 04/12/20 17:18 Globulin 3.3 g/dL (2.4-3.5) 04/12/20 17:18 Albumin/Globulin Ratio 1.0 g/dL (1.2-2.2) L 04/12/20 17:18 Urine Color Light-Yellow (Yellow) 04/12/20 17:22 Urine Clarity Turbid (Clear) A 04/12/20 17:22 Urine pH 5.0 (5.0-9.0) 04/12/20 17:22 Ur Specific [place] 1.007 (1.002-1.036) 04/12/20 17:22 Urine Protein 30 mg/dL (Neg-Trace) A 04/12/20 17:22 Urine Glucose (UA) Normal mg/dL (Negative) 04/12/20 17:22 Urine Ketones Negative mg/dL (Negative) 04/12/20 17:22 Urine Blood 2+ (Negative) A 04/12/20 17: Urine Nitrite Negative (Negative) 04/12/20 17:22 Urine Bilirubin Negative (Negative) 04/12/20 17:22 Urine Urobilinogen Normal mg/dL (Less than 2) 04/12/20 17:22 Ur Leukocyte Esterase 500 Louise/uL (Negative) A 04/12/20 17: Urine RBC 21-50 HPF (0-3) A 04/12/20 17:22 Urine WBC Greater than 50 HPF (0-3) A 04/12/20 17:22 Ur Squamous Epith Cells 4-6 HPF (0-3) A 04/12/20 17:22 Urine Bacteria 4+ HPF (None Seen) A 04/12/20 17:22 Chest x-ray Status: report reviewed by me Hospitalist H&P A/P (1) Acute kidney failure Status: Acute (2) Hypoglycemia Code(s): E16.2 - HYPOGLYCEMIA, UNSPECIFIED Status: Acute (3) Tachycardia Code(s): R00.0 - TACHYCARDIA, UNSPECIFIED Status: Acute (4) Hypomagnesemia Code(s): E83.42 - HYPOMAGNESEMIA Status: Acute (5) UTI (urinary tract infection) Status: Acute Qualifiers: Urinary tract infection type: acute cystitis Hematuria presence: without hematuria Qualified Code(s): N30.00 - Acute cystitis without hematuria (6) Diabetes type 2, controlled Code(s): E11.9 - TYPE 2 DIABETES MELLITUS WITHOUT COMPLICATIONS Status: Chronic Qualifiers: Diabetes mellitus mcc insulin use: with termite treater helper use Diabetes mellitus complication status: without complication Qualified Code(s): E11.9 - Type 2 diabetes mellitus without complications; Z79.4 - roasterman (current) use of insulin (7) Dyslipidemia Code(s): E78.5 - HYPERLIPIDEMIA, UNSPECIFIED Status: Chronic (8) Gout Code(s): M10.9 - GOUT, UNSPECIFIED Status: Chronic Qualifiers: Gout etiology: unspecified cause Chronicity: chronic Laterality: unspecified laterality Presence of tophus: without tophus (9) Hypertension Code(s): I10 - ESSENTIAL (PRIMARY) HYPERTENSION Status: Chronic (10) Hypothyroidism Code(s): E03.9 - HYPOTHYROIDISM, UNSPECIFIED Status: Chronic Qualifiers: Hypothyroidism type: unspecified Qualified Code(s): E03.9 - Hypothyroidism, unspecified (11) Obesity (BMI 30-39.9) Code(s): E66.9 - OBESITY, UNSPECIFIED Status: Chronic Plan: UTI Continue IV antibiotics Repeat urine cultures pending Bladder scan to assess for urine retention Hypoglycemia Hourly accu-cheks x 4 If improved ok to space out to Q4H TONY/CKD Continue gentle hydration Monitor renal function Avoid nephrotoxic meds Tachycardia Replace low magnesium Cardiac monitoring Hypertension Monitor BP Resume home meds as appropriate once verified Hypothyroidism Chronic and stable GI prophylaxis with famotidine DVT Prophylaxis with mechanical SCDs Surrogate decision maker is her Robin Lopez.
[2020-04-12] MEDS ORDERED: Magnesium 2 GM/50 ML BAG (IN WATER) ONE (20:39)
[2020-04-12] MEDS ORDERED: Sodium Chloride 0.9% 1,000 ML IV SCH (23:30)
[2020-04-13] MEDS ORDERED: Famotidine 20 MG TAB ONE (00:11)
[2020-04-13] MEDS: Famotidine 20 MG TAB PO SCH ×2 (00:19→20:24)
[2020-04-13] MEDS ORDERED: Dextrose 50% Abboject 50 ML SYRINGE ONE (01:18)
[2020-04-13] MEDS: Dextrose 5 %-0.45 % NaCl 1,000 ML IV SCH ×2 (02:19→20:24)
[2020-04-13 04:56] LABS: SARS-CoV-2 PCR by NAA Not Detected (NotDetected)
[2020-04-13 04:58] LABS: #Eosinphils 0.6 thou/uL (0.0-0.7); #Lymphocytes 1.2 thou/uL (1.20-3.40); #Neutrophils 7.8 thou/uL (1.40-6.50); %Basophils 0.3 % (0.0-1.0); %Eosinophils 5.3 % (0.0-10.0); %Lymphocytes 11.3 % (21.0-51.0); %Monocytes 9.7 % (0.0-10.0); %Neutrophils 73.4 % (42.0-75.0); Hemoglobin 9.3 g/dL (12.0-16.0); Mean Corpuscular HGB CONC 32.3 g/dL (32.0-36.0); Mean Corpuscular Hemoglobin 27.9 pg (27.0-31.0); Mean Corpuscular Volume 86.3 fL (78.0-98.0); Mean Platelet Volume 7.7 fL (7.4-10.4); Platelet Count 213 thou/uL (130-400); RBC Distribution Width 13.9 % (11.5-14.5); Red Blood Cell (RBC) Count 3.33 mill/uL (4.20-5.40); White Blood Cell (WBC) Count 10.6 thou/uL (4.8-10.8)
[2020-04-13 05:19] LABS: Anion Gap 17 mmol/L (10-20); BUN (Urea Nitrogen) 22 mg/dL (9.8-20.1); Calc. Creatinine Clearance 0 mL/min (70-130); Calcium 8.7 mg/dL (7.8-10.44); Carbon Dioxide 14 mmol/L (23-31); Chloride 111 mmol/L (98-107); Glucose 109 mg/dL (83-110); Iron 10 ug/dL (50-170); Iron Binding Capacity, Total 225 mcg/dL (265-497); Potassium 3.7 mmol/L (3.5-5.1); Sodium 138 mmol/L (136-145)
[2020-04-13 05:20] LABS: Iron 11 ug/dL (50-170); Iron Binding Capacity, Total 221 mcg/dL (265-497)
[2020-04-13 05:54] LABS: Ferritin 208.31 ng/mL (10-291)
[2020-04-13] MEDS ORDERED: cefTRIAXone\\ROCEPHIN 1 GM VIAL ONE (09:03)
[2020-04-13] MEDS: cefTRIAXone\\ROCEPHIN 1 GM in Sodium Chloride 0.9% 100 ML IVPB SCH (09:10)
[2020-04-13] MEDS ORDERED: Metoclopramide HCl 10 MG/2 ML VIAL ONE (09:25)
--- NOTE | 2020-04-13 12:33 | PDOC.HOSPP ---
- Subjective Encounter Date: 04/13/20 Subjective: Appears well in no acute distress, reports that she cannot move her right side. - Objective Result Diagrams: 04/13/20 04:26 04/13/20 04:26 Additional Labs: Accuchecks 04/13/20 04/13/20 04/13/20 06:03 04:13 03:03 POC Glucose 112 H 114 H 118 H 04/13/20 04/13/20 04/13/20 01:56 01:17 00:18 POC Glucose 125 H 48 L* 61 L 04/12/20 04/12/20 20:44 17:02 POC Glucose 96 52 L* Hospitalist ROS - Medication Medications: Active Medications Generic Name Dose Route Start Last Admin Trade Name Freq PRN Reason Stop Dose Admin Dextrose/Water 25 gm 04/12/20 19:58 04/13/20 01:22 Dextrose 50% Abboject 50 Ml Syringe SLOW IVP 25 gm PRN PRN Administration Hypoglycemia Famotidine 20 mg 04/12/20 21:00 04/13/20 00:19 Famotidine 20 Mg Tab PO 20 mg QPM ALECIA Administration Dextrose/Sodium Chloride 1,000 mls @ 50 mls/hr 04/13/20 02:00 04/13/20 02:19 D5 1/2 Ns IV 1,000 mls .Q20H ALECIA Administration Ceftriaxone Sodium 1 gm/ 100 mls @ 200 mls/hr 04/13/20 09:00 04/13/20 09:10 Sodium Chloride IVPB 100 mls 0900 ALECIA Administration Hospitalist Exam General Appearance: NAD Eye: PERRL, anicteric sclera ENT: normocephalic atraumatic Neck: supple, symmetric, no JVD Heart: RRR, no murmur, no gallops Respiratory: CTAB, no wheezes, no rales Gastrointestinal: soft, non-tender, non-distended Neurological: cranial nerve grossly intact (She does have weakness in all her extremities more on the right than the left, 30 function appears to be symmetrical.) Musculoskeletal: normal tone Hosp A/P (1) Right sided weakness Code(s): R53.1 - WEAKNESS Status: Acute (2) Hypoglycemia Code(s): E16.2 - HYPOGLYCEMIA, UNSPECIFIED Status: Acute (3) Hypomagnesemia Code(s): E83.42 - HYPOMAGNESEMIA Status: Acute (4) Acute kidney failure Status: Acute (5) UTI (urinary tract infection) Status: Acute Qualifiers: Urinary tract infection type: acute cystitis Hematuria presence: without hematuria Qualified Code(s): N30.00 - Acute cystitis without hematuria (6) Diabetes type 2, controlled Code(s): E11.9 - TYPE 2 DIABETES MELLITUS WITHOUT COMPLICATIONS Status: Chr onic Qualifiers: Diabetes mellitus buttermilk drier operator insulin use: with buttermilk drier operator use Diabetes mellitus complication status: without complication Qualified Code(s): E11.9 - Type 2 diabetes mellitus without complications; Z79.4 - intermediate designer (current) use of insulin (7) Hypertension Code(s): I10 - ESSENTIAL (PRIMARY) HYPERTENSION Status: Chronic (8) Hypothyroidism Code(s): E03.9 - HYPOTHYROIDISM, UNSPECIFIED Status: Chronic Qualifiers: Hypothyroidism type: unspecified Qualified Code(s): E03.9 - Hypothyroidism, unspecified (9) Obesity (BMI 30-39.9) Code(s): E66.9 - OBESITY, UNSPECIFIED Status: Chronic (10) Anemia Code(s): D64.9 - ANEMIA, UNSPECIFIED Status: Acute - Plan This is an 79-year-old female patient was brought from the skilled nursing for hypoglycemia she has not been eating well recently, I did speak with her daughter who told me that patient has been weak unable to move her extremities since while, she was in this hospital treated for a urinary tract infection discharged recently. Neuro--- patient does have motor weakness involving her upper and lower extremities more so on the right than the left, this could be due to vitamin B12 deficiency but also we should rule out central nervous system etiology and for that reason we will do an MRI of the brain and the cervical spine, I cannot do it with contrast because of her kidney function. I will start her on vitamin B12 IM to transition her at some point to p.o. Renal system electrolyte--- she does have acute kidney injury most likely due to dehydration, she is currently on IV fluids her creatinine did improve, I will keep on holding her ISRRAEL inhibitor and hydrochlorothiazide, her magnesium was replaced we will recheck it tomorrow. Endocrinology--- she is diabetic and was hypoglycemic on arrival most likely due to poor oral intake, will keep on holding her oral antidiabetics she is currently on an insulin sliding scale, she is still on D5W drip to be reassessed as per her future glycemic levels. ID----she does have a UTI based on previous cultures urine grew Proteus brenton bilis sensitive to Rocephin, I will start her on IV Rocephin she did receive cefepime yesterday and she was on Cipro at the skilled nursing, she also did receive 1 dose of Rocephin at the skilled nursing before transferring her to the hospital. Cardiac--- patient does have high blood pressure should be restarted on her pain we are continuing to withhold her ISRRAEL inhibitor hydrochlorothiazide due to the acute kidney injury, I will have her on IV hydralazine on as-needed basis. Hematology--- she appears to be iron deficient we will start her on iron supplementation and as mentioned above we will start her on vitamin B12 replacement. For DVT prophylaxis she will be on heparin subcutaneously I have discussed the above with her daughter and she told me that she has been out of the hospital DO NOT RESUSCITATE so we will continue with that.
[2020-04-13] MEDS ORDERED: Acetaminophen 325 MG/10.15 ML UDCUP ONE (12:42)
[2020-04-13] MEDS ORDERED: Acetaminophen 325 MG TAB ONE (12:42)
[2020-04-13] MEDS: Acetaminophen 325 MG TAB PO PRN (13:24)
--- NOTE | 2020-04-13 15:29 | MRI ---
Exam: Brain MRI without contrast HISTORY: Right-sided motor weakness, with additional left-sided symptoms COMPARISON: None FINDINGS: Calvarial marrow signal intensity: Appropriate T1 signal Gradient echo sequence: No hemorrhage Brain parenchyma: No mass, mass effect or midline shift. Brain volume, age-appropriate. Cortical garcia-white matter differentiation: Preserved Restricted diffusion: Central arterial flow voids are maintained. Absent restricted diffusion White matter signal intensities:Minimal T2, FLAIR white matter hyperintensities due to chronic small vessel ischemic changes Sinuses: Adequate aeration of the paranasal sinuses and mastoid air cells. IMPRESSION: 1. Absent restricted diffusion. No acute infarction. 2. Age-appropriate atrophy. 3. There are chronic small vessel ischemic changes of the white matter
--- NOTE | 2020-04-13 15:41 | MRI ---
MRI CERVICAL SPINE WITHOUT CONTRAST: Date: 04/13/2020 INDICATION: Motor weakness in right extremity greater than the left. COMPARISON: Prior MRI of the cervical spine dated 03/11/2020. FINDINGS: Motion artifact slightly limits image detail on the exam. Bone marrow signal intensity appears within normal limits. Spinal alignment is preserved. Visualized posterior fossa is unremarkable appearing. At C2-C3, there is a small central protrusion at C2-C3 without appreciable central canal or neural fo raminal narrowing. At C3-4, there is a broad based disc bulge with ligamentum flavum hypertrophy and facet joint degener ative change inducing severe central canal narrowing with cord signal abnormality, stable to the prio r exam. There is some mild increased T2 signal seen within the spinal cord which may reflect edema ve rsus myelomalacia. At C4-5, there is a central protrusion with ligamentum flavum hypertrophy and facet joint degenerativ e change inducing moderate to severe central canal narrowing with moderate ventral effacement of the spinal cord, stable to the prior exam. There is uncovertebral hypertrophy and facet joint degenerativ e change inducing severe left and moderate to severe right neural foraminal narrowing, stable to prio r exam. At C5-6, there is a broad based bulge with a superimposed central disc protrusion causing mild ventra l effacement of the spinal cord. There is uncovertebral hypertrophy and facet joint degenerative thomson ge inducing mild bilateral neural foraminal narrowing. This is stable to the prior exam. At C6-7, there is a broad based bulge with a superimposed central protrusion inducing severe central canal narrowing with moderate effacement of the spinal cord. There is some central cord signal abnorm ality suspicious for either edema or myelomalacia. There is severe bilateral neural foraminal narrowi ng due to uncovertebral hypertrophy and facet joint degenerative change which is stable to the prior exam. At C7-T1, there is a broad based facet joint degenerative change, left greater than right, inducing s evere left and moderate right neural foraminal narrowing. IMPRESSION: Stable advanced multilevel cervical spondylosis with multilevel central canal and neural foraminal na rrowing as above. The examination does not appear appreciably changed from the comparison study dated 03/11/2020. POS: [facility]
[2020-04-13] MEDS: Ferrous Sulfate 325 MG TAB PO SCH (18:31)
[2020-04-13] MEDS: Heparin 5,000 UNITS/ML VIAL SC SCH (20:23)
[2020-04-13] MEDS: Cyanocobalamin 1000 MCG/ML VIAL IM SCH (20:24)
[2020-04-14] MEDS: Acetaminophen 325 MG TAB PO PRN ×3 (01:34→20:28)
[2020-04-14 06:05] LABS: #Eosinphils 0.6 thou/uL (0.0-0.7); #Lymphocytes 1.1 thou/uL (1.20-3.40); #Monocytes 0.7 thou/uL (0.11-0.59); #Neutrophils 5.1 thou/uL (1.40-6.50); %Basophils 0.6 % (0.0-1.0); %Eosinophils 8.2 % (0.0-10.0); %Lymphocytes 14.8 % (21.0-51.0); %Monocytes 8.8 % (0.0-10.0); %Neutrophils 67.5 % (42.0-75.0); Mean Corpuscular Volume 84.9 fL (78.0-98.0); Mean Platelet Volume 6.9 fL (7.4-10.4); Platelet Count 238 thou/uL (130-400); RBC Distribution Width 13.8 % (11.5-14.5); Red Blood Cell (RBC) Count 2.85 mill/uL (4.20-5.40); White Blood Cell (WBC) Count 7.5 thou/uL (4.8-10.8)
[2020-04-14 06:26] LABS: ALT (SGPT) 18 U/L (8-55); AST (SGOT) 24 U/L (5-34); Albumin 2.7 g/dL (3.4-4.8); Alkaline Phosphatase 62 U/L (40-110); Anion Gap 12 mmol/L (10-20); BUN (Urea Nitrogen) 19 mg/dL (9.8-20.1); Bilirubin, Total 0.3 mg/dL (0.2-1.2); Calc. Creatinine Clearance 35 mL/min (70-130); Calcium 8.8 mg/dL (7.8-10.44); Carbon Dioxide 18 mmol/L (23-31); Chloride 111 mmol/L (98-107); Glucose 142 mg/dL (83-110); Magnesium 1.7 mg/dL (1.6-2.6); Potassium 3.6 mmol/L (3.5-5.1); Protein, Total 5.7 g/dL (5.8-8.1); Sodium 137 mmol/L (136-145)
[2020-04-14] MEDS: Heparin 5,000 UNITS/ML VIAL SC SCH ×2 (09:19→20:28)
[2020-04-14] MEDS: Ferrous Sulfate 325 MG TAB PO SCH ×2 (09:20→16:05)
[2020-04-14] MEDS: cefTRIAXone\\ROCEPHIN 1 GM in Sodium Chloride 0.9% 100 ML IVPB SCH (09:21)
[2020-04-14] MEDS ORDERED: Oxybutynin 5 MG TAB PO PRN (13:03)
--- NOTE | 2020-04-14 13:10 | PDOC.HOSPP ---
- Subjective Encounter Date: 04/14/20 Encounter Time: 09:40 Subjective: Patient appears well she has no complaints. She had some stool accident in the bed. MRI report discussed with her. Will restart her home medications. - Objective Vital Signs & Weight: Vital Signs (12 hours) Temp Pulse Resp BP Pulse Ox 04/14/20 08:00 100 04/14/20 07:35 97.9 F 104 H 18 130/68 100 04/14/20 04:00 98.8 F 105 H 18 130/56 L 96 04/14/20 02:04 98.2 F 04/14/20 01:34 100 F H Weight Weight 184 lb 3.2 oz I&O: 04/13/20 04/14/20 04/15/20 06:59 06:59 06:59 Intake Total 750 Output Total 1300 1050 Balance -550 -1050 Result Diagrams: 04/14/20 05:46 04/14/20 05:46 Additional Labs: Accuchecks 04/14/20 04/14/20 04/13/20 11:26 04:58 20:19 POC Glucose 149 H 142 H 180 H 04/13/20 04/13/20 16:53 13:23 POC Glucose 144 H 138 H Hospitalist ROS - Medication Medications: Active Medications Generic Name Dose Route Start Last Admin Trade Name Dannyq PRN Reason Stop Dose Admin Acetaminophen 650 mg 04/12/20 20:00 04/14/20 09:50 Acetaminophen 325 Mg Tab PO 650 mg Q4H PRN Administration Headache/Fever/Mild Pain (1-3) Cyanocobalamin 1,000 mcg 04/13/20 21:00 04/13/20 20:24 Cyanocobalamin 1000 Mcg/Ml Vial IM 04/17/20 21:01 1,000 mcg 2100 ALECIA Administration Dextrose/Water 25 gm 04/12/20 19:58 04/13/20 01:22 Dextrose 50% Abboject 50 Ml Syringe SLOW IVP 25 gm PRN PRN Administration Hypoglycemia Famotidine 20 mg 04/12/20 21:00 04/13/20 20:24 Famotidine 20 Mg Tab PO 20 mg QPM ALECIA Administration Ferrous Sulfate 325 mg 04/13/20 17:00 04/14/20 09:20 Ferrous Sulfate 325 Mg Tab PO 325 mg BID-WM ALECIA Administration Heparin Sodium (Porcine) 5,000 units 04/13/20 21:00 04/14/20 09:19 Heparin 5,000 Units/Ml Vial SC 5,000 units BID ALECIA Administration Dextrose/Sodium Chloride 1,000 mls @ 50 mls/hr 04/13/20 02:00 04/13/20 20:24 D5 1/2 Ns IV 1,000 mls .Q20H ALECIA Administration Ceftriaxone Sodium 1 gm/ 100 mls @ 200 mls/hr 04/13/20 09:00 04/14/20 09:21 Sodium Chloride IVPB 100 mls 0900 ALECIA Administration Hospitalist Exam Vitals: Vital Signs (12 hours) Temp Pulse Resp BP Pulse Ox 04/14/20 08:00 100 04/14/20 07:35 97.9 F 104 H 18 130/68 100 04/14/20 04:00 98.8 F 105 H 18 130/56 L 96 04/14/20 02:04 98.2 F 04/14/20 01:34 100 F H Weight Weight 184 lb 3.2 oz General Appearance: NAD, awake alert Eye: PERRL ENT: normocephalic atraumatic Neck: supple Heart: RRR, normal peripheral pulses Respiratory: CTAB, normal chest expansion Gastrointestinal: soft, normal bowel sounds Neurological: cranial nerve grossly intact, no focal deficits Musculoskeletal: generalized weakness Psychiatric: normal affect, normal behavior, A&O x 3 Hosp A/P - Plan Right sided weakness Code(s): R53.1 - WEAKNESS Status: Acute (2) Hypoglycemia Code(s): E16.2 - HYPOGLYCEMIA, UNSPECIFIED Status: Acute (3) Hypomagnesemia Code(s): E83.42 - HYPOMAGNESEMIA Status: Acute (4) Acute kidney failure Status: Acute (5) UTI (urinary tract infection) Status: Acute Qualifiers: Urinary tract infection type: acute cystitis Hematuria presence: without hematuria Qualified Code(s): N30.00 - Acute cystitis without hematuria (6) Diabetes type 2, controlled Code(s): E11.9 - TYPE 2 DIABETES MELLITUS WITHOUT COMPLICATIONS Status: Chronic Qualifiers: Diabetes mellitus local intermodal truck driver insulin use: with local intermodal truck driver use Diabetes mellitus complication status: without complication Qualified Code(s): E11.9 - Type 2 diabetes mellitus without complications; Z79.4 - alf (current) use of insulin (7) Hypertension Code(s): I10 - ESSENTIAL (PRIMARY) HYPERTENSION Status: Chronic (8) Hypothyroidism Code(s): E03.9 - HYPOTHYROIDISM, UNSPECIFIED Status: Chronic Qualifiers: Hypothyroidism type: unspecified Qualified Code(s): E03.9 - Hypothyroidism, unspecified (9) Obesity (BMI 30-39.9) Code(s): E66.9 - OBESITY, UNSPECIFIED Status: Chronic (10) Anemia Code(s): D64.9 - ANEMIA, UNSPECIFIED Status: Acute - Plan This is an 79-year-old female patient [facility] for hypoglycemia she has not been eating well recently, Her blood glucose seems to be improved. Acute kidney injury - after fluid hydration it improved from 2.9-1.69 -Holding lisinopril as well as hydrochlorothiazide and she is on her IV hydralazine as needed. She had a mild leukocytosis that seems to be related to urinary tract infection and that is also seems to be getting better. Urinary tract infection Prior culture grew Proteus mirabilis sensitive to Rocephin -She [facility] getting C[facility] the [facility] -I will continue with ceftriaxone for now. We can transition to Cipro at the time of discharge. Covid negative 1234 DVT prophylaxis with heparin. She is DN AR based on the prior conversation with the daughter by the a previous provider
[2020-04-14] MEDS: Dextrose 5 %-0.45 % NaCl 1,000 ML IV SCH (16:05)
[2020-04-14] MEDS ORDERED: HumaLOG 300 UNITS/3 ML VIAL SC SCH (17:00)
[2020-04-14] MEDS: Aspirin 325 MG TAB PO SCH (20:27)
[2020-04-14] MEDS: Amlodipine 10 MG TAB PO SCH (20:27)
[2020-04-14] MEDS: Atorvastatin Calcium 20 MG TAB PO SCH (20:27)
[2020-04-14] MEDS: metFORMIN 500 MG TAB PO SCH (20:28)
[2020-04-14] MEDS: Gabapentin 300 MG CAP PO SCH (20:28)
[2020-04-14] MEDS: Cyanocobalamin 1000 MCG/ML VIAL IM SCH (20:28)
[2020-04-14] MEDS ORDERED: glipiZIDE 10 MG TAB PO SCH (21:00)
[2020-04-15] MEDS: hydrALAZINE 20 MG/ML VIAL SLOW IVP PRN ×2 (00:44→05:57)
[2020-04-15] MEDS: Levothyroxine Sodium 100 MCG TAB PO SCH (05:57)
[2020-04-15] MEDS ORDERED: Non-Formulary Item 1 EACH (Lisinopril [Lisinopril] 40 MG Tablet) PO SCH (09:00)
[2020-04-15] MEDS: Famotidine 20 MG TAB PO SCH (09:15)
[2020-04-15] MEDS: Ferrous Sulfate 325 MG TAB PO SCH ×2 (09:15→16:40)
[2020-04-15] MEDS: Gabapentin 300 MG CAP PO SCH ×2 (09:16→21:28)
[2020-04-15] MEDS: metFORMIN 500 MG TAB PO SCH ×2 (09:16→21:26)
[2020-04-15] MEDS: Heparin 5,000 UNITS/ML VIAL SC SCH ×2 (09:16→21:28)
[2020-04-15] MEDS: Saccharomyces boulardii 250 MG CAP PO SCH (09:16)
[2020-04-15] MEDS: cefTRIAXone\\ROCEPHIN 1 GM in Sodium Chloride 0.9% 100 ML IVPB SCH (09:21)
[2020-04-15] MEDS: Dextrose 5 %-0.45 % NaCl 1,000 ML IV SCH (09:30)
[2020-04-15] MEDS: Allopurinol 300 MG TAB PO SCH (10:02)
[2020-04-15] MEDS: Metoprolol Tartrate 50 MG TAB PO SCH (10:02)
--- NOTE | 2020-04-15 14:24 | PDOC.HOSPP ---
- Subjective Encounter Date: 04/15/20 Encounter Time: 12:30 Subjective: Patient is resting she is actually talking over the phone. Her blood cultures negative C. difficile negative. Urine culture grew yeast. MRI report reviewed. - Objective Vital Signs & Weight: Vital Signs (12 hours) Temp Pulse Resp BP BP Pulse Ox 04/15/20 11:35 98.6 F 87 16 162/81 H 100 04/15/20 08:00 100 04/15/20 07:54 98.0 F 116 H 18 178/80 H 100 04/15/20 05:57 99 159/78 H 04/15/20 04:00 97.7 F 99 18 196/65 H 100 Weight Weight 184 lb 3.2 oz I&O: 04/14/20 04/15/20 04/16/20 06:59 06:59 06:59 Intake Total 750 Output Total 1300 2900 Balance -550 -2900 Result Diagrams: 04/14/20 05:46 04/14/20 05:46 Additional Labs: Accuchecks 04/15/20 04/15/20 04/14/20 11:36 04:40 20:09 POC Glucose 157 H 110 H 205 H 04/14/20 16:26 POC Glucose 147 H Hospitalist ROS - Medication Medications: Active Medications Generic Name Dose Route Start Last Admin Trade Name Freq PRN Reason Stop Dose Admin Acetaminophen 650 mg 04/12/20 20:00 04/14/20 20:28 Acetaminophen 325 Mg Tab PO 650 mg Q4H PRN Administration Headache/Fever/Mild Pain (1-3) Allopurinol 300 mg 04/15/20 09:00 04/15/20 10:02 Allopurinol 300 Mg Tab PO 300 mg DAILY ALECIA Administration Amlodipine Besylate 10 mg 04/14/20 21:00 04/14/20 20:27 Amlodipine 10 Mg Tab PO 10 mg HS ALECIA Administration Aspirin 325 mg 04/14/20 21:00 04/14/20 20:27 Aspirin 325 Mg Tab PO 325 mg HS ALECIA Administration Atorvastatin Calcium 20 mg 04/14/20 21:00 04/14/20 20:27 Atorvastatin Calcium 20 Mg Tab PO 20 mg HS ALECIA Administration Cyanocobalamin 1,000 mcg 04/13/20 21:00 04/14/20 20:28 Cyanocobalamin 1000 Mcg/Ml Vial IM 04/17/20 21:01 1,000 mcg 2100 ALECIA Administration Dextrose/Water 25 gm 04/12/20 19:58 04/13/20 01:22 Dextrose 50% Abboject 50 Ml Syringe SLOW IVP 25 gm PRN PRN Administration Hypoglycemia Famotidine 20 mg 04/15/20 09:00 04/15/20 09:15 Famotidine 20 Mg Tab PO 20 mg DAILY ALECIA Administration Ferrous Sulfate 325 mg 04/13/20 17:00 04/15/20 09:15 Ferrous Sulfate 325 Mg Tab PO 325 mg BID-WM ALECIA Administration Gabapentin 300 mg 04/14/20 21:00 04/15/20 09:16 Gabapentin 300 Mg Cap PO 300 mg BID ALECIA Administration Heparin Sodium (Porcine) 5,000 units 04/13/20 21:00 04/15/20 09:16 Heparin 5,000 Units/Ml Vial SC 5,000 units BID ALECIA Administration Hydralazine HCl 5 mg 04/13/20 12:28 04/15/20 05:57 Hydralazine 20 Mg/Ml Vial SLOW IVP 5 mg Q6H PRN Administration SBP > 140 Dextrose/Sodium Chloride 1,000 mls @ 50 mls/hr 04/13/20 02:00 04/15/20 09:30 D5 1/2 Ns IV 1,000 mls .Q20H ALECIA Administration Ceftriaxone Sodium 1 gm/ 100 mls @ 200 mls/hr 04/13/20 09:00 04/15/20 09:21 Sodium Chloride IVPB 100 mls 0900 ALECIA Administration Levothyroxine Sodium 100 mcg 04/15/20 06:00 04/15/20 05:57 Levothyroxine Sodium 100 Mcg Tab PO 100 mcg 0600 ALECIA Administration Metformin HCl 500 mg 04/14/20 21:00 04/15/20 09:16 Metformin 500 Mg Tab PO 500 mg BID ALECIA Administration Metoprolol Tartrate 100 mg 04/15/20 09:00 04/15/20 10:02 Metoprolol Tartrate 50 Mg Tab PO 100 mg DAILY ALECIA Administration Saccharomyces Boulardii 250 mg 04/15/20 09:00 04/15/20 09:16 Saccharomyces Boulardii 250 Mg Cap PO 250 mg DAILY ALECIA Administration Hospitalist Exam Vitals: Vital Signs (12 hours) Temp Pulse Resp BP BP Pulse Ox 04/15/20 11:35 98.6 F 87 16 162/81 H 100 04/15/20 08:00 100 04/15/20 07:54 98.0 F 116 H 18 178/80 H 100 04/15/20 05:57 99 159/78 H 04/15/20 04:00 97.7 F 99 18 196/65 H 100 Weight Weight 184 lb 3.2 oz General Appearance: NAD, awake alert Eye: PERRL, anicteric sclera ENT: normocephalic atraumatic Neck: supple Heart: RRR Respiratory: CTAB, normal chest expansion Gastrointestinal: soft, normal bowel sounds Neurological: cranial nerve grossly intact, no focal deficits Psychiatric: normal affect, normal behavior, A&O x 3 Hosp A/P - Plan Right sided weakness Code(s): R53.1 - WEAKNESS Status: Acute (2) Hypoglycemia Code(s): E16.2 - HYPOGLYCEMIA, UNSPECIFIED Status: Acute (3) Hypomagnesemia Code(s): E83.42 - HYPOMAGNESEMIA Status: Acute (4) Acute kidney failure Status: Acute (5) UTI (urinary tract infection) Status: Acute Qualifiers: Urinary tract infection type: acute cystitis Hematuria presence: without hematuria Qualified Code(s): N30.00 - Acute cystitis without hematuria (6) Diabetes type 2, controlled Code(s): E11.9 - TYPE 2 DIABETES MELLITUS WITHOUT COMPLICATIONS Status: Chronic Qualifiers: Diabetes mellitus intermediate school teacher insulin use: with half-way use Diabetes mellitus complication status: without complication Qualified Code(s): E11.9 - Type 2 diabetes mellitus without complications; Z79.4 - retirement (current) use of insulin (7) Hypertension Code(s): I10 - ESSENTIAL (PRIMARY) HYPERTENSION Status: Chronic (8) Hypothyroidism Code(s): E03.9 - HYPOTHYROIDISM, UNSPECIFIED Status: Chronic Qualifiers: Hypothyroidism type: unspecified Qualified Code(s): E03.9 - Hypothyroidism, unspecified (9) Obesity (BMI 30-39.9) Code(s): E66.9 - OBESITY, UNSPECIFIED Status: Chronic (10) Anemia Code(s): D64.9 - ANEMIA, UNSPECIFIED Status: Acute - Plan This is an 79-year-old female patient was [facility] from the [facility] for hypoglycemia she has not been eating well recently, Her blood glucose seems to be improved. Acute kidney injury - after fluid hydration it improved from 2.9-1.69 -Holding lisinopril as well as hydrochlorothiazide and she is on her IV hydralazine as needed. She had a mild leukocytosis that seems to be related to urinary tract infection and that is also seems to be getting better. Urinary tract infection Prior culture grew Proteus mirabilis sensitive to Rocephin -She was getting C[facility] at the [facility] -I will continue with ceftriaxone for now. We can transition to Cipro at the time of discharge. Covid negative DVT prophylaxis with heparin. She is DN AR based on the prior conversation with the daughter by the a previous provider 10th Right hemiparesis -MRI report showed no acute infarction age-appropriate atrophy and chronic small vessel ischemic changes of the white matter -Cervical spine MRI multilevel cervical spondylolysis with the central canal and neural foraminal narrowing at multilevel no change from the study completed on March 11 Urine culture growing yeast -Started her on fluconazole -Await another 24 hours If there is no bacterial growth will stop IV antibiotics -transition to p.o. and she was taking Cipro at the nursing facility Ongoing physical therapy treatment.
[2020-04-15] MEDS ORDERED: Fluconazole 100 MG TAB PO SCH (14:30)
[2020-04-15] MEDS: Loperamide HCl 2 MG CAP PO PRN (16:40)
[2020-04-15] MEDS: Amlodipine 10 MG TAB PO SCH (21:26)
[2020-04-15] MEDS: Atorvastatin Calcium 20 MG TAB PO SCH (21:27)
[2020-04-15] MEDS: Acetaminophen 325 MG TAB PO PRN (21:27)
[2020-04-15] MEDS: Aspirin 325 MG TAB PO SCH (21:27)
[2020-04-15] MEDS: Cyanocobalamin 1000 MCG/ML VIAL IM SCH (21:28)
[2020-04-16] MEDS: hydrALAZINE 20 MG/ML VIAL SLOW IVP PRN (02:13)
[2020-04-16] MEDS ORDERED: hydrALAZINE 20 MG/ML VIAL SLOW IVP SCH (06:15)
[2020-04-16] MEDS: Levothyroxine Sodium 100 MCG TAB PO SCH (07:15)
[2020-04-16] MEDS: Heparin 5,000 UNITS/ML VIAL SC SCH ×2 (08:13→20:37)
[2020-04-16] MEDS: cefTRIAXone\\ROCEPHIN 1 GM in Sodium Chloride 0.9% 100 ML IVPB SCH (08:13)
[2020-04-16] MEDS: Allopurinol 300 MG TAB PO SCH (08:14)
[2020-04-16] MEDS: Saccharomyces boulardii 250 MG CAP PO SCH (08:14)
[2020-04-16] MEDS: Ferrous Sulfate 325 MG TAB PO SCH ×2 (08:14→15:41)
[2020-04-16] MEDS: Metoprolol Tartrate 50 MG TAB PO SCH ×2 (08:14→14:30)
[2020-04-16] MEDS: Gabapentin 300 MG CAP PO SCH ×2 (08:14→20:36)
[2020-04-16] MEDS: Fluconazole 100 MG TAB PO SCH (08:14)
[2020-04-16] MEDS: Famotidine 20 MG TAB PO SCH (08:14)
[2020-04-16] MEDS: Dextrose 5 %-0.45 % NaCl 1,000 ML IV SCH (08:15)
[2020-04-16] MEDS: metFORMIN 500 MG TAB PO SCH ×2 (08:15→20:38)
[2020-04-16] MEDS ORDERED: hydrALAZINE 20 MG/ML VIAL SLOW IVP PRN (09:40)
[2020-04-16] MEDS ORDERED: Amlodipine 10 MG TAB PO SCH (09:45)
[2020-04-16] MEDS ORDERED: Ondansetron PF 4 MG/2 ML Vial IVP PRN (10:00)
[2020-04-16] MEDS: Loperamide HCl 2 MG CAP PO PRN ×2 (12:13→20:53)
[2020-04-16] MEDS: traMADol HCl 50 MG TAB PO PRN ×2 (12:14→20:53)
--- NOTE | 2020-04-16 14:09 | PDOC.HOSPP ---
- Subjective Encounter Date: 04/16/20 Encounter Time: 12:10 Subjective: Castillo seen this morning. Her blood pressure is quite high daughter at bedside. She is participating with physical therapy. Discussed the care plan today. - Objective Vital Signs & Weight: Vital Signs (12 hours) Temp Pulse Resp BP BP Pulse Ox 04/16/20 11:00 98.2 F 83 18 152/69 H 100 04/16/20 10:05 91 150/72 H 04/16/20 09:36 98 04/16/20 07:14 98.2 F 91 17 195/67 H 158/68 H 98 04/16/20 05:37 98.1 F 92 18 195/67 H 99 04/16/20 02:13 89 187/66 H Weight Weight 184 lb 3.2 oz I&O: 04/15/20 04/16/20 04/17/20 06:59 06:59 06:59 Output Total 2900 Balance -2900 Result Diagrams: 04/14/20 05:46 04/14/20 05:46 Additional Labs: Accuchecks 04/16/20 04/16/20 04/15/20 12:06 05:08 20:28 POC Glucose 170 H 109 H 148 H 04/15/20 16:05 POC Glucose 146 H Hospitalist ROS - Medication Medications: Active Medications Generic Name Dose Route Start Last Admin Trade Name Freq PRN Reason Stop Dose Admin Acetaminophen 650 mg 04/12/20 20:00 04/15/20 21:27 Acetaminophen 325 Mg Tab PO 650 mg Q4H PRN Administration Headache/Fever/Mild Pain (1-3) Allopurinol 300 mg 04/15/20 09:00 04/16/20 08:14 Allopurinol 300 Mg Tab PO 300 mg DAILY ALECIA Administration Aspirin 325 mg 04/14/20 21:00 04/15/20 21:27 Aspirin 325 Mg Tab PO 325 mg HS ALECIA Administration Atorvastatin Calcium 20 mg 04/14/20 21:00 04/15/20 21:27 Atorvastatin Calcium 20 Mg Tab PO 20 mg HS ALECIA Administration Cyanocobalamin 1,000 mcg 04/13/20 21:00 04/15/20 21:28 Cyanocobalamin 1000 Mcg/Ml Vial IM 04/17/20 21:01 1,000 mcg 2100 ALECIA Administration Dextrose/Water 25 gm 04/12/20 19:58 04/13/20 01:22 Dextrose 50% Abboject 50 Ml Syringe SLOW IVP 25 gm PRN PRN Administration Hypoglycemia Famotidine 20 mg 04/15/20 09:00 04/16/20 08:14 Famotidine 20 Mg Tab PO 20 mg DAILY ALECIA Administration Ferrous Sulfate 325 mg 04/13/20 17:00 04/16/20 08:14 Ferrous Sulfate 325 Mg Tab PO 325 mg BID-WM ALECIA Administration Fluconazole 100 mg 04/16/20 09:00 04/16/20 08:14 Fluconazole 100 Mg Tab PO 100 mg DAILY ALECIA Administration Gabapentin 300 mg 04/14/20 21:00 04/16/20 08:14 Gabapentin 300 Mg Cap PO 300 mg BID ALECIA Administration Heparin Sodium (Porcine) 5,000 units 04/13/20 21:00 04/16/20 08:13 Heparin 5,000 Units/Ml Vial SC 5,000 units BID ALECIA Administration Dextrose/Sodium Chloride 1,000 mls @ 50 mls/hr 04/13/20 02:00 04/16/20 08:15 D5 1/2 Ns IV 1,000 mls .Q20H ALECIA Administration Ceftriaxone Sodium 1 gm/ 100 mls @ 200 mls/hr 04/13/20 09:00 04/16/20 08:13 Sodium Chloride IVPB 100 mls 0900 ALECIA Administration Levothyroxine Sodium 100 mcg 04/15/20 06:00 04/16/20 07:15 Levothyroxine Sodium 100 Mcg Tab PO 100 mcg 0600 ALECIA Administration Loperamide HCl 4 mg 04/14/20 19:36 04/16/20 12:13 Loperamide Hcl 2 Mg Cap PO 4 mg QID PRN Administration Diarrhea/Loose Stools Metformin HCl 500 mg 04/14/20 21:00 04/16/20 08:15 Metformin 500 Mg Tab PO 500 mg BID ALECIA Administration Metoprolol Tartrate 100 mg 04/15/20 09:00 04/16/20 08:14 Metoprolol Tartrate 50 Mg Tab PO 100 mg DAILY ALECIA Administration Saccharomyces Boulardii 250 mg 04/15/20 09:00 04/16/20 08:14 Saccharomyces Boulardii 250 Mg Cap PO 250 mg DAILY ALECIA Administration Tramadol HCl 50 mg 04/14/20 13:03 04/16/20 12:14 Tramadol Hcl 50 Mg Tab PO 50 mg Q4H PRN Administration Pain Hospitalist Exam Vitals: Vital Signs (12 hours) Temp Pulse Resp BP BP Pulse Ox 04/16/20 11:00 98.2 F 83 18 152/69 H 100 04/16/20 10:05 91 150/72 H 04/16/20 09:36 98 04/16/20 07:14 98.2 F 91 17 195/67 H 158/68 H 98 04/16/20 05:37 98.1 F 92 18 195/67 H 99 04/16/20 02:13 89 187/66 H Weight Weight 184 lb 3.2 oz General Appearance: NAD, awake alert Eye: PERRL ENT: normocephalic atraumatic Neck: supple, no thyromegaly Heart: RRR, normal peripheral pulses Respiratory: CTAB, normal chest expansion Gastrointestinal: soft, normal bowel sounds Neurological: cranial nerve grossly intact, no focal deficits Musculoskeletal: generalized weakness Psychiatric: normal affect, normal behavior, A&O x 3 Hosp A/P - Plan Right sided weakness Code(s): R53.1 - WEAKNESS Status: Acute (2) Hypoglycemia Code(s): E16.2 - HYPOGLYCEMIA, UNSPECIFIED Status: Acute (3) Hypomagnesemia Code(s): E83.42 - HYPOMAGNESEMIA Status: Acute (4) Acute kidney failure Status: Acute (5) UTI (urinary tract infection) Status: Acute Qualifiers: Urinary tract infection type: acute cystitis Hematuria presence: without hematuria Qualified Code(s): N30.00 - Acute cystitis without hematuria (6) Diabetes type 2, controlled Code(s): E11.9 - TYPE 2 DIABETES MELLITUS WITHOUT COMPLICATIONS Status: Chronic Qualifiers: 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 Diabetes mellitus complication status: without complication Qualified Code(s): E11.9 - Type 2 diabetes mellitus without complications; Z79.4 - detention (current) use of insulin (7) Hypertension Code(s): I10 - ESSENTIAL (PRIMARY) HYPERTENSION Status: Chronic (8) Hypothyroidism Code(s): E03.9 - HYPOTHYROIDISM, UNSPECIFIED Status: Chronic Qualifiers: Hypothyroidism type: unspecified Qualified Code(s): E03.9 - Hypothyroidism, unspecified (9) Obesity (BMI 30-39.9) Code(s): E66.9 - OBESITY, UNSPECIFIED Status: Chronic (10) Anemia Code(s): D64.9 - ANEMIA, UNSPECIFIED Status: Acute - Plan This is an 79-year-old female patient [facility]cemia she has not been eating well recently, Her blood glucose seems to be improved. Acute kidney injury - after fluid hydration it improved from 2.9-1.69 -Holding lisinopril as well as hydrochlorothiazide and she is on her IV hydralazine as needed. She had a mild leukocytosis that seems to be related to urinary tract infection and that is also seems to be getting better. Urinary tract infection Prior culture grew Proteus mirabilis sensitive to Rocephin -She [facility] the [facility] -I will continue with ceftriaxone for now. We can transition to Cipro at the time of discharge. Covid negative DVT prophylaxis with heparin. She is DN AR based on the prior conversation with the daughter by the a previous provider 10th Right hemiparesis -MRI report showed no acute infarction age-appropriate atrophy and chronic small vessel ischemic changes of the white matter -Cervical spine MRI multilevel cervical spondylolysis with the central canal and neural foraminal narrowing at multilevel no change from the study completed on March 11 Urine culture growing yeast -Started her on fluconazole -Await another 24 hours If there is no bacterial growth will stop IV antibiotics -transition to p.o. and she was taking Cipro at the nursing facility Ongoing physical therapy treatment. hypertension Will check her creatinine level. If it improved then will restart her back on lisinopril and hydrochlorothiazide. She is on Lopressor 100mg will change that to 75mg twice a day instead of once daily dose If her blood pressure is improved possibly transfer back to her long term facility in 1 to 2 days.
[2020-04-16] MEDS ORDERED: Metoprolol Tartrate 50 MG TAB PO SCH (14:15)
[2020-04-16 14:49] LABS: Anion Gap 16 mmol/L (10-20); BUN (Urea Nitrogen) 10 mg/dL (9.8-20.1); Calc. Creatinine Clearance 70 mL/min (70-130); Calcium 8.6 mg/dL (7.8-10.44); Carbon Dioxide 15 mmol/L (23-31); Chloride 113 mmol/L (98-107); Glucose 164 mg/dL (83-110); Sodium 141 mmol/L (136-145)
[2020-04-16 15:07] LABS: Potassium 2.8 mmol/L (3.5-5.1)
[2020-04-16] MEDS ORDERED: Potassium Chloride 20 MEQ TAB PO SCH (15:30)
--- NOTE | 2020-04-16 16:28 | PDOC.FMACP ---
Advance Care Planning - Problem (1) Palliative care encounter Status: Acute Code(s): Z51.5 - ENCOUNTER FOR PALLIATIVE CARE (2) Hypoglycemia Status: Acute Code(s): E16.2 - HYPOGLYCEMIA, UNSPECIFIED (3) Hypomagnesemia Status: Acute Code(s): E83.42 - HYPOMAGNESEMIA (4) Right sided weakness Status: Acute Code(s): R53.1 - WEAKNESS (5) UTI (urinary tract infection) Status: Acute Qualifiers: Urinary tract infection type: acute cystitis Hematuria presence: without hematuria Qualified Code(s): N30.00 - Acute cystitis without hematuria (6) Hypertension Status: Chronic Code(s): I10 - ESSENTIAL (PRIMARY) HYPERTENSION (7) Hypothyroidism Status: Chronic Code(s): E03.9 - HYPOTHYROIDISM, UNSPECIFIED Qualifiers: Hypothyroidism type: unspecified Qualified Code(s): E03.9 - Hypothyroidism, unspecified (8) Obesity (BMI 30-39.9) Status: Chronic Code(s): E66.9 - OBESITY, UNSPECIFIED - Note Participants: patient, palliative care Summary: Palliative care initiated conversation in relation to Advanced Care Planning. The diagnosis, prognosis and goals of care were discussed. Appropriate forms and documentation to accomplish the goals of care were discussed. All questions were answered. Discussed resuscitation measures. Patient currently desires to remain with full resuscitation x1. If intubated or survives CPR but no meaningful recovery then her hope is her family will allow a natural at that time. MPOA completed. Information in relation to Directive to physician to be revisited with specific wishes of patient documented in Directive to physician. Torey No Palliative Care Registrar to follow up. Please refer to Palliative Care notes in note section. Time Spent (mins): 15
[2020-04-16] MEDS: Aspirin 325 MG TAB PO SCH (20:35)
[2020-04-16] MEDS: Atorvastatin Calcium 20 MG TAB PO SCH (20:36)
[2020-04-16] MEDS: Cyanocobalamin 1000 MCG/ML VIAL IM SCH (20:38)
[2020-04-17] MEDS: Levothyroxine Sodium 100 MCG TAB PO SCH (05:25)
[2020-04-17] MEDS: Dextrose 5 %-0.45 % NaCl 1,000 ML IV SCH (05:27)
[2020-04-17] MEDS: cefTRIAXone\\ROCEPHIN 1 GM in Sodium Chloride 0.9% 100 ML IVPB SCH (07:52)
[2020-04-17] MEDS: Heparin 5,000 UNITS/ML VIAL SC SCH ×2 (07:52→20:28)
[2020-04-17] MEDS: Saccharomyces boulardii 250 MG CAP PO SCH (07:53)
[2020-04-17] MEDS: Fluconazole 100 MG TAB PO SCH (07:53)
[2020-04-17] MEDS: Metoprolol Tartrate 50 MG TAB PO SCH ×2 (07:54→20:26)
[2020-04-17] MEDS: Allopurinol 300 MG TAB PO SCH (07:54)
[2020-04-17] MEDS: Gabapentin 300 MG CAP PO SCH ×2 (07:54→20:26)
[2020-04-17] MEDS: metFORMIN 500 MG TAB PO SCH ×2 (07:55→20:27)
[2020-04-17] MEDS: Ferrous Sulfate 325 MG TAB PO SCH ×2 (07:55→15:50)
[2020-04-17] MEDS: Amlodipine 10 MG TAB PO SCH (07:55)
[2020-04-17] MEDS: Famotidine 20 MG TAB PO SCH (07:55)
[2020-04-17] MEDS: Loperamide HCl 2 MG CAP PO PRN ×2 (07:58→20:25)
--- NOTE | 2020-04-17 12:39 | PDOC.HOSPP ---
- Subjective Encounter Date: 04/17/20 Encounter Time: 10:10 Subjective: Patient doing well her blood pressure this morning is little high. Lately it remove improved however her potassium is down. - Objective Vital Signs & Weight: Vital Signs (12 hours) Temp Pulse Resp BP BP BP Pulse Ox 04/17/20 11:33 98.2 F 75 16 119/65 99 04/17/20 08:32 99 04/17/20 07:55 91 133/67 04/17/20 07:23 98.5 F 91 18 133/67 99 04/17/20 05:36 98.6 F 87 18 163/65 H 99 04/17/20 01:25 79 04/17/20 00:51 98.0 F 79 18 169/66 H 99 Weight Weight 184 lb 3.2 oz I&O: 04/16/20 04/17/20 04/18/20 06:59 06:59 06:59 Intake Total 1740 Output Total 2100 Balance -360 Result Diagrams: 04/14/20 05:46 04/16/20 14:20 Additional Labs: Accuchecks 04/17/20 04/17/20 04/16/20 11:35 05:12 20:29 POC Glucose 140 H 121 H 188 H 04/16/20 04/16/20 16:41 12:06 POC Glucose 171 H 170 H Hospitalist ROS - Medication Medications: Active Medications Generic Name Dose Route Start Last Admin Trade Name Freq PRN Reason Stop Dose Admin Acetaminophen 650 mg 04/12/20 20:00 04/15/20 21:27 Acetaminophen 325 Mg Tab PO 650 mg Q4H PRN Administration Headache/Fever/Mild Pain (1-3) Allopurinol 300 mg 04/15/20 09:00 04/17/20 07:54 Allopurinol 300 Mg Tab PO 300 mg DAILY ALECIA Administration Amlodipine Besylate 10 mg 04/17/20 09:00 04/17/20 07:55 Amlodipine 10 Mg Tab PO 10 mg DAILY ALECIA Administration Aspirin 325 mg 04/14/20 21:00 04/16/20 20:35 Aspirin 325 Mg Tab PO 325 mg HS ALECIA Administration Atorvastatin Calcium 20 mg 04/14/20 21:00 04/16/20 20:36 Atorvastatin Calcium 20 Mg Tab PO 20 mg HS ALECIA Administration Cyanocobalamin 1,000 mcg 04/13/20 21:00 04/16/20 20:38 Cyanocobalamin 1000 Mcg/Ml Vial IM 04/17/20 21:01 1,000 mcg 2100 ALECIA Administration Dextrose/Water 25 gm 04/12/20 19:58 04/13/20 01:22 Dextrose 50% Abboject 50 Ml Syringe SLOW IVP 25 gm PRN PRN Administration Hypoglycemia Famotidine 20 mg 04/15/20 09:00 04/17/20 07:55 Famotidine 20 Mg Tab PO 20 mg DAILY ALECIA Administration Ferrous Sulfate 325 mg 04/13/20 17:00 04/17/20 07:55 Ferrous Sulfate 325 Mg Tab PO 325 mg BID-WM ALECIA Administration Fluconazole 100 mg 04/16/20 09:00 04/17/20 07:53 Fluconazole 100 Mg Tab PO 100 mg DAILY ALECIA Administration Gabapentin 300 mg 04/14/20 21:00 04/17/20 07:54 Gabapentin 300 Mg Cap PO 300 mg BID ALECIA Administration Heparin Sodium (Porcine) 5,000 units 04/13/20 21:00 04/17/20 07:52 Heparin 5,000 Units/Ml Vial SC 5,000 units BID ALECIA Administration Hydralazine HCl 10 mg 04/16/20 09:40 04/17/20 01:25 Hydralazine 20 Mg/Ml Vial SLOW IVP 10 mg Q4H PRN Administration Blood Pressure SBP>150 Dextrose/Sodium Chloride 1,000 mls @ 50 mls/hr 04/13/20 02:00 04/17/20 05:27 D5 1/2 Ns IV 1,000 mls .Q20H ALECIA Administration Levothyroxine Sodium 100 mcg 04/15/20 06:00 04/17/20 05:25 Levothyroxine Sodium 100 Mcg Tab PO 100 mcg 0600 ALECIA Administration Loperamide HCl 4 mg 04/14/20 19:36 04/17/20 07:58 Loperamide Hcl 2 Mg Cap PO 4 mg QID PRN Administration Diarrhea/Loose Stools Metformin HCl 500 mg 04/14/20 21:00 04/17/20 07:55 Metformin 500 Mg Tab PO 500 mg BID ALECIA Administration Metoprolol Tartrate 75 mg 04/16/20 21:00 04/17/20 07:54 Metoprolol Tartrate 50 Mg Tab PO 75 mg BID ALECIA Administration Saccharomyces Boulardii 250 mg 04/15/20 09:00 04/17/20 07:53 Saccharomyces Boulardii 250 Mg Cap PO 250 mg DAILY ALECIA Administration Tramadol HCl 50 mg 04/14/20 13:03 04/16/20 20:53 Tramadol Hcl 50 Mg Tab PO 50 mg Q4H PRN Administration Pain Hospitalist Exam Vitals: Vital Signs (12 hours) Temp Pulse Resp BP BP BP Pulse Ox 04/17/20 11:33 98.2 F 75 16 119/65 99 04/17/20 08:32 99 04/17/20 07:55 91 133/67 04/17/20 07:23 98.5 F 91 18 133/67 99 04/17/20 05:36 98.6 F 87 18 163/65 H 99 04/17/20 01:25 79 04/17/20 00:51 98.0 F 79 18 169/66 H 99 Weight Weight 184 lb 3.2 oz General Appearance: NAD, awake alert Eye: PERRL ENT: normocephalic atraumatic Neck: supple Heart: RRR, normal peripheral pulses Respiratory: CTAB, normal chest expansion Gastrointestinal: soft, normal bowel sounds Neurological: no focal deficits Psychiatric: A&O x 3 Hosp A/P - Plan Right sided weakness Code(s): R53.1 - WEAKNESS Status: Acute (2) Hypoglycemia Code(s): E16.2 - HYPOGLYCEMIA, UNSPECIFIED Status: Acute (3) Hypomagnesemia Code(s): E83.42 - HYPOMAGNESEMIA Status: Acute (4) Acute kidney failure Status: Acute (5) UTI (urinary tract infection) Status: Acute Qualifiers: Urinary tract infection type: acute cystitis Hematuria presence: without hematuria Qualified Code(s): N30.00 - Acute cystitis without hematuria (6) Diabetes type 2, controlled Code(s): E11.9 - TYPE 2 DIABETES MELLITUS WITHOUT COMPLICATIONS Status: Chronic Qualifiers: Diabetes mellitus long wall mining machine tender insulin use: with usp use Diabetes mellitus complication status: without complication Qualified Code(s): E11.9 - Type 2 diabetes mellitus without complications; Z79.4 - intermodal truck driver (current) use of insulin (7) Hypertension Code(s): I10 - ESSENTIAL (PRIMARY) HYPERTENSION Status: Chronic (8) Hypothyroidism Code(s): E03.9 - HYPOTHYROIDISM, UNSPECIFIED Status: Chronic Qualifiers: Hypothyroidism type: unspecified Qualified Code(s): E03.9 - Hypothyroidism, unspecified (9) Obesity (BMI 30-39.9) Code(s): E66.9 - OBESITY, UNSPECIFIED Status: Chronic (10) Anemia Code(s): D64.9 - ANEMIA, UNSPECIFIED Status: Acute - Plan This is an 79-year-old female patient was brought from the residential for hypoglycemia she has not been eating well recently, Her blood glucose seems to be improved. Acute kidney injury - after fluid hydration it improved from 2.9-1.69 -Holding lisinopril as well as hydrochlorothiazide and she is on her IV hydralazine as needed. She had a mild leukocytosis that seems to be related to urinary tract infection and that is also seems to be getting better. Urinary tract infection Prior culture grew Proteus mirabilis sensitive to Rocephin -She was getting Cipro at the residential -I will continue with ceftriaxone for now. We can transition to Cipro at the time of discharge. Covid negative DVT prophylaxis with heparin. She is DN AR based on the prior conversation with the daughter by the a previous provider Right hemiparesis -MRI report showed no acute infarction age-appropriate atrophy and chronic small vessel ischemic changes of the white matter -Cervical spine MRI multilevel cervical spondylolysis with the central canal and neural foraminal narrowing at multilevel no change from the study completed on March 11 Urine culture growing yeast -Started her on fluconazole -Await another 24 hours If there is no bacterial growth will stop IV antibiotics -transition to p.o. and she was taking Cipro at the nursing facility Ongoing physical therapy treatment. Accelerated hypertension Will check her creatinine level. If it improved then will restart her back on lisinopril and hydrochlorothiazide. She is on Lopressor 100mg will change that to 75mg twice a day instead of once daily dose If her blood pressure is improved possibly transfer back to her [facility] facility in 1 to 2 days. 12th Hypokalemia -Replace -Blood pressure still labile has to be optimized With those above conditions as well as due to bad weather situation, plan to discharge her tomorrow.
[2020-04-17] MEDS ORDERED: Potassium Chloride 20 MEQ TAB PO SCH ×2 (12:45→14:45)
[2020-04-17] MEDS: Atorvastatin Calcium 20 MG TAB PO SCH (20:27)
[2020-04-17] MEDS: Cephalexin 250 MG CAP PO SCH (20:27)
[2020-04-17] MEDS: traMADol HCl 50 MG TAB PO PRN (20:28)
[2020-04-17] MEDS: Cyanocobalamin 1000 MCG/ML VIAL IM SCH (20:28)
[2020-04-17] MEDS ORDERED: Aspirin 325 MG TAB ONE (20:31)
[2020-04-17] MEDS: Aspirin 325 MG TAB PO SCH (20:32)
[2020-04-18] MEDS: Dextrose 5 %-0.45 % NaCl 1,000 ML IV SCH (03:37)
[2020-04-18 05:42] LABS: Anion Gap 12 mmol/L (10-20); BUN (Urea Nitrogen) 5 mg/dL (9.8-20.1); Calc. Creatinine Clearance 78 mL/min (70-130); Calcium 8.2 mg/dL (7.8-10.44); Carbon Dioxide 18 mmol/L (23-31); Chloride 114 mmol/L (98-107); Glucose 119 mg/dL (83-110); Sodium 140 mmol/L (136-145)
[2020-04-18] MEDS: Levothyroxine Sodium 100 MCG TAB PO SCH (05:42)
[2020-04-18] MEDS: traMADol HCl 50 MG TAB PO PRN ×2 (08:20→20:57)
[2020-04-18] MEDS: Ferrous Sulfate 325 MG TAB PO SCH ×2 (08:23→16:56)
[2020-04-18] MEDS: Fluconazole 100 MG TAB PO SCH (08:23)
[2020-04-18] MEDS: metFORMIN 500 MG TAB PO SCH ×2 (08:24→20:55)
[2020-04-18] MEDS: Cephalexin 250 MG CAP PO SCH ×2 (08:24→20:55)
[2020-04-18] MEDS: Saccharomyces boulardii 250 MG CAP PO SCH (08:24)
[2020-04-18] MEDS: Metoprolol Tartrate 50 MG TAB PO SCH ×2 (08:25→20:56)
[2020-04-18] MEDS: Gabapentin 300 MG CAP PO SCH ×2 (08:26→20:56)
[2020-04-18] MEDS: Allopurinol 300 MG TAB PO SCH (08:26)
[2020-04-18] MEDS: Famotidine 20 MG TAB PO SCH (08:27)
[2020-04-18] MEDS: Amlodipine 10 MG TAB PO SCH (08:28)
[2020-04-18] MEDS: Heparin 5,000 UNITS/ML VIAL SC SCH ×2 (08:30→21:04)
--- NOTE | 2020-04-18 15:56 | PDOC.HOSPP ---
- Subjective Encounter Date: 04/18/20 Encounter Time: 15:50 Subjective: F/u: hypoglycemia, UTI The patient is doing well. She has no abd pain, nausea or vomiting. She reports loose stool everytime she eats. Explained this can be from antibiotics and C diff negative . She had jewell catheter placed this admission for urine retention and wants to see if she can pee on her own She reports that she has been bed-bound for a month and doesn't know why. She has been using a wheelchair. She thought she had a stroke, but MRI negative. She reports pain in her right calf occasionally radiating to right hip and weakness on right leg more than left. She states she doesn't think she would want any surgery, but she wants to hear their opinion in case she changes her mind - Objective Vital Signs & Weight: Vital Signs (12 hours) Temp Pulse Resp BP BP Pulse Ox 04/18/20 11:40 97.9 F 74 18 160/73 H 99 04/18/20 08:28 82 147/70 H 04/18/20 08:00 98.0 F 99 04/18/20 07:45 98.0 F 82 20 147/70 H 99 04/18/20 04:00 98.2 F 82 18 144/71 H 99 Weight Weight 184 lb 3.2 oz I&O: 04/17/20 04/18/20 04/19/20 06:59 06:59 06:59 Intake Total 1740 2300 480 Output Total 2100 2350 750 Balance -360 -50 -270 Result Diagrams: 04/14/20 05:46 04/18/20 05:09 Additional Labs: Accuchecks 04/18/20 04/18/20 04/17/20 11:42 04:55 20:16 POC Glucose 131 H 111 H 144 H 04/17/20 15:55 POC Glucose 145 H Hospitalist ROS - Review of Systems Constitutional: denies: fever, chills - Medication Medications: Active Medications Generic Name Dose Route Start Last Admin Trade Name Freq PRN Reason Stop Dose Admin Acetaminophen 650 mg 04/12/20 20:00 04/15/20 21:27 Acetaminophen 325 Mg Tab PO 650 mg Q4H PRN Administration Headache/Fever/Mild Pain (1-3) Allopurinol 300 mg 04/15/20 09:00 04/18/20 08:26 Allopurinol 300 Mg Tab PO 300 mg DAILY ALECIA Administration Amlodipine Besylate 10 mg 04/17/20 09:00 04/18/20 08:28 Amlodipine 10 Mg Tab PO 10 mg DAILY ALECIA Administration Aspirin 325 mg 04/14/20 21:00 04/17/20 20:32 Aspirin 325 Mg Tab PO 325 mg HS ALECIA Administration Atorvastatin Calcium 20 mg 04/14/20 21:00 04/17/20 20:27 Atorvastatin Calcium 20 Mg Tab PO 20 mg HS ALECIA Administration Cephalexin 500 mg 04/17/20 21:00 04/18/20 08:24 Cephalexin 250 Mg Cap PO 04/21/20 10:00 500 mg BID ALECIA Administration Dextrose/Water 25 gm 04/12/20 19:58 04/13/20 01:22 Dextrose 50% Abboject 50 Ml Syringe SLOW IVP 25 gm PRN PRN Administration Hypoglycemia Famotidine 20 mg 04/15/20 09:00 04/18/20 08:27 Famotidine 20 Mg Tab PO 20 mg DAILY ALECIA Administration Ferrous Sulfate 325 mg 04/13/20 17:00 04/18/20 08:23 Ferrous Sulfate 325 Mg Tab PO 325 mg BID-WM ALECIA Administration Fluconazole 100 mg 04/16/20 09:00 04/18/20 08:23 Fluconazole 100 Mg Tab PO 100 mg DAILY ALECIA Administration Gabapentin 300 mg 04/14/20 21:00 04/18/20 08:26 Gabapentin 300 Mg Cap PO 300 mg BID ALECIA Administration Heparin Sodium (Porcine) 5,000 units 04/13/20 21:00 04/18/20 08:30 Heparin 5,000 Units/Ml Vial SC 5,000 units BID ALECIA Administration Hydralazine HCl 10 mg 04/16/20 09:40 04/17/20 01:25 Hydralazine 20 Mg/Ml Vial SLOW IVP 10 mg Q4H PRN Administration Blood Pressure SBP>150 Levothyroxine Sodium 100 mcg 04/15/20 06:00 04/18/20 05:42 Levothyroxine Sodium 100 Mcg Tab PO 100 mcg 0600 ALECIA Administration Loperamide HCl 4 mg 04/14/20 19:36 04/17/20 20:25 Loperamide Hcl 2 Mg Cap PO 4 mg QID PRN Administration Diarrhea/Loose Stools Metformin HCl 500 mg 04/14/20 21:00 04/18/20 08:24 Metformin 500 Mg Tab PO 500 mg BID ALECIA Administration Metoprolol Tartrate 75 mg 04/16/20 21:00 04/18/20 08:25 Metoprolol Tartrate 50 Mg Tab PO 75 mg BID ALECIA Administration Saccharomyces Boulardii 250 mg 04/15/20 09:00 04/18/20 08:24 Saccharomyces Boulardii 250 Mg Cap PO 250 mg DAILY ALECIA Administration Tramadol HCl 50 mg 04/14/20 13:03 04/18/20 08:20 Tramadol Hcl 50 Mg Tab PO 50 mg Q4H PRN Administration Pain Hospitalist Exam Vitals: Vital Signs (12 hours) Temp Pulse Resp BP BP Pulse Ox 04/18/20 11:40 97.9 F 74 18 160/73 H 99 04/18/20 08:28 82 147/70 H 04/18/20 08:00 98.0 F 99 04/18/20 07:45 98.0 F 82 20 147/70 H 99 04/18/20 04:00 98.2 F 82 18 144/71 H 99 Weight Weight 184 lb 3.2 oz General Appearance: NAD, awake alert Eye: PERRL, anicteric sclera ENT: normocephalic atraumatic, no oropharyngeal lesions Neck: no JVD Heart: RRR, no murmur, no gallops, no rubs Respiratory: CTAB, no wheezes, no rales, no ronchi Gastrointestinal: soft, non-tender, non-distended, normal bowel sounds Extremities: no cyanosis, no clubbing, no edema Skin: normal turgor, no lesions, no rashes Neurological: cranial nerve grossly intact, normal sensation to touch, no weakness, no focal deficits, no new deficit Hosp A/P - Plan MRI cervical spine: advanced multilevel cervical spondylosis with multilevel central canal and neural foraminal narrowing MRI brain: no acute infarction. Age appropriate atrophy. Chronic small vessel ischemic changes Chest Xray: normal MRI lumbar spine: very severe stenosis at L4-L5 This is an 79 year old female who presented with hypoglycemia and confusion for the past few days. She was found to have a UTI as well and admitted UTI - urine culture growing reinaldo. She currently has jewell catheter. Will remove jewell and do voiding trial - will d/c fluconazole Hypoglycemia - will discontinue IV fluids and reassess blood sugars Severe lumbar spinal stenosis - MRi lumbar spine 03/2019 showed severe stenosis at L4-L5 and some urine retention. She does have bilateral weakness, R > L. Will consult neurosurgery - continue with physical therapy Type II diabetes - continue metformin, hold glipizide and insulin for now Anemia - Hb 8, stable, will monitor
--- NOTE | 2020-04-18 17:31 | RAD ---
TWO VIEWS RIGHT TIBIA/FIBULA: 04/18/20 HISTORY: Right calf pain and weakness. FINDINGS: Two views of the right tibia/fibula shows no evidence of acute fracture or dislocation. Degenerative changes are seen in the ankle joint. No degenerative changes are seen in the knee. IMPRESSION: No evidence of acute osseous abnormality. POS: EAA
--- NOTE | 2020-04-18 17:32 | RAD ---
TWO VIEWS OF THE RIGHT FEMUR: 04/18/20 HISTORY: Right leg weakness and pain. FINDINGS: Two views of the right femur shows no evidence of acute fracture or dislocation. No degenerative thomson ges are seen. Vascular calcifications are present. Diffuse soft tissue swelling is seen. IMPRESSION: No evidence of acute osseous abnormality. POS: EAA
[2020-04-18] MEDS: Atorvastatin Calcium 20 MG TAB PO SCH (20:55)
[2020-04-18] MEDS: Aspirin 325 MG TAB PO SCH (20:55)
[2020-04-18] MEDS: Acetaminophen 325 MG TAB PO PRN (21:01)
[2020-04-19] MEDS: Levothyroxine Sodium 100 MCG TAB PO SCH (05:20)
[2020-04-19] MEDS: metFORMIN 500 MG TAB PO SCH ×2 (08:01→20:59)
[2020-04-19] MEDS: Ferrous Sulfate 325 MG TAB PO SCH ×2 (08:01→17:04)
[2020-04-19] MEDS: Cephalexin 250 MG CAP PO SCH ×2 (08:02→20:59)
[2020-04-19] MEDS: Famotidine 20 MG TAB PO SCH (08:02)
[2020-04-19] MEDS: Saccharomyces boulardii 250 MG CAP PO SCH (08:02)
[2020-04-19] MEDS: Amlodipine 10 MG TAB PO SCH (08:02)
[2020-04-19] MEDS: Metoprolol Tartrate 50 MG TAB PO SCH ×2 (08:03→20:59)
[2020-04-19] MEDS: Allopurinol 300 MG TAB PO SCH (08:05)
[2020-04-19] MEDS: Gabapentin 300 MG CAP PO SCH ×2 (08:05→20:59)
[2020-04-19] MEDS: Fluconazole 100 MG TAB PO SCH (08:06)
[2020-04-19] MEDS: Heparin 5,000 UNITS/ML VIAL SC SCH (09:17)
--- NOTE | 2020-04-19 15:18 | PDOC.HOSPP ---
- Subjective Encounter Date: 04/19/20 Encounter Time: 10:30 Subjective: F/u: weakness, urine retention The patient had jewell catheter removed yesterday. Patient did not urinate and was retaining 500 cc of urine, so jewell was replaced overnight Patient still has some pain in her right leg and has difficulty moving it. She has some weakness in right arm as welll. The patient hasn't been able to walk for the past month due to her leg pain and weakness. Prior to that, she would walk and had no dyspnea or chest pain on exertion. She was able to clean floors and scrub without difficulty . She does have a history of a heart murmur - Objective Vital Signs & Weight: Vital Signs (12 hours) Temp Pulse Resp BP BP BP Pulse Ox 04/19/20 12:00 98.7 F 04/19/20 11:54 98.7 F 79 18 154/63 H 99 04/19/20 08:02 85 159/74 H 04/19/20 08:00 98.4 F 85 100 04/19/20 07:50 98.4 F 85 18 159/74 H 100 04/19/20 04:00 98 F 82 18 147/72 H 99 Weight Weight 184 lb 3.2 oz I&O: 04/18/20 04/19/20 04/20/20 06:59 06:59 06:59 Intake Total 2300 1670 240 Output Total 2350 1830 Balance -50 -160 240 Result Diagrams: 04/14/20 05:46 04/18/20 05:09 Additional Labs: Accuchecks 04/19/20 04/19/20 04/18/20 11:58 05:19 20:11 POC Glucose 145 H 98 183 H Hospitalist ROS - Review of Systems Constitutional: denies: fever, chills - Medication Medications: Active Medications Generic Name Dose Route Start Last Admin Trade Name Freq PRN Reason Stop Dose Admin Acetaminophen 650 mg 04/12/20 20:00 04/18/20 21:01 Acetaminophen 325 Mg Tab PO 650 mg Q4H PRN Administration Headache/Fever/Mild Pain (1-3) Allopurinol 300 mg 04/15/20 09:00 04/19/20 08:05 Allopurinol 300 Mg Tab PO 300 mg DAILY ALECIA Administration Amlodipine Besylate 10 mg 04/17/20 09:00 04/19/20 08:02 Amlodipine 10 Mg Tab PO 10 mg DAILY ALECIA Administration Atorvastatin Calcium 20 mg 04/14/20 21:00 04/18/20 20:55 Atorvastatin Calcium 20 Mg Tab PO 20 mg HS ALECIA Administration Cephalexin 500 mg 04/17/20 21:00 04/19/20 08:02 Cephalexin 250 Mg Cap PO 04/21/20 10:00 500 mg BID ALECIA Administration Dextrose/Water 25 gm 04/12/20 19:58 04/13/20 01:22 Dextrose 50% Abboject 50 Ml Syringe SLOW IVP 25 gm PRN PRN Administration Hypoglycemia Famotidine 20 mg 04/15/20 09:00 04/19/20 08:02 Famotidine 20 Mg Tab PO 20 mg DAILY ALECIA Administration Ferrous Sulfate 325 mg 04/13/20 17:00 04/19/20 08:01 Ferrous Sulfate 325 Mg Tab PO 325 mg BID-WM ALECIA Administration Fluconazole 100 mg 04/16/20 09:00 04/19/20 08:06 Fluconazole 100 Mg Tab PO 100 mg DAILY ALECIA Administration Gabapentin 300 mg 04/14/20 21:00 04/19/20 08:05 Gabapentin 300 Mg Cap PO 300 mg BID ALECIA Administration Hydralazine HCl 10 mg 04/16/20 09:40 04/17/20 01:25 Hydralazine 20 Mg/Ml Vial SLOW IVP 10 mg Q4H PRN Administration Blood Pressure SBP>150 Levothyroxine Sodium 100 mcg 04/15/20 06:00 04/19/20 05:20 Levothyroxine Sodium 100 Mcg Tab PO 100 mcg 0600 ALECIA Administration Loperamide HCl 4 mg 04/14/20 19:36 04/17/20 20:25 Loperamide Hcl 2 Mg Cap PO 4 mg QID PRN Administration Diarrhea/Loose Stools Metformin HCl 500 mg 04/14/20 21:00 04/19/20 08:01 Metformin 500 Mg Tab PO 500 mg BID ALECIA Administration Metoprolol Tartrate 75 mg 04/16/20 21:00 04/19/20 08:03 Metoprolol Tartrate 50 Mg Tab PO 75 mg BID ALECIA Administration Saccharomyces Boulardii 250 mg 04/15/20 09:00 04/19/20 08:02 Saccharomyces Boulardii 250 Mg Cap PO 250 mg DAILY ALECIA Administration Tramadol HCl 50 mg 04/14/20 13:03 04/18/20 20:57 Tramadol Hcl 50 Mg Tab PO 50 mg Q4H PRN Administration Pain Hospitalist Exam Vitals: Vital Signs (12 hours) Temp Pulse Resp BP BP BP Pulse Ox 04/19/20 12:00 98.7 F 04/19/20 11:54 98.7 F 79 18 154/63 H 99 04/19/20 08:02 85 159/74 H 04/19/20 08:00 98.4 F 85 100 04/19/20 07:50 98.4 F 85 18 159/74 H 100 04/19/20 04:00 98 F 82 18 147/72 H 99 Weight Weight 184 lb 3.2 oz General Appearance: NAD, awake alert Eye: PERRL, anicteric sclera ENT: normocephalic atraumatic, no oropharyngeal lesions Neck: no JVD Heart: RRR, no murmur, no gallops, no rubs Respiratory: CTAB, no wheezes, no rales, no ronchi Gastrointestinal: soft, non-tender, non-distended, normal bowel sounds Extremities: no cyanosis, no clubbing, no edema Skin: normal turgor, no lesions, no rashes Neurological: cranial nerve grossly intact, normal sensation to touch Neurological - other findings: bilateral weakness, right worst than left Musculoskeletal - other findings: can lift right arm to 45 degrees, dec ROM right leg Psychiatric: normal affect, normal behavior, A&O x 3 Hosp A/P - Plan MRI cervical spine: advanced multilevel cervical spondylosis with multilevel central canal and neural foraminal narrowing MRI brain: no acute infarction. Age appropriate atrophy. Chronic small vessel ischemic changes Chest Xray: normal MRI lumbar spine: very severe stenosis at L4-L5 This is an 79 year old female who presented with hypoglycemia and confusion for the past few days. She was found to have a UTI as well and admitted UTI - urine culture growing reinaldo. She currently has jewell catheter. Will remove jewell and do voiding trial - will d/c fluconazole Severe lumbar spinal stenosis - MRi lumbar spine 03/2019 showed severe stenosis at L4-L5 and some urine retention. She does have bilateral weakness, R > L. Will consult neurosurgery - continue with physical therapy History of heart murmur - don't hear obvious murmur, but will check ECHO. No active CHF symptoms that would preclude any type of surgery Hypoglycemia -resolved. Blood sugars normalized. IV fluids with dextrose discontinued Type II diabetes- blood sugars controlled - continue metformin Anemia - Hb 8, stable, will monitor
--- NOTE | 2020-04-19 17:06 | CON ---
DATE OF CONSULTATION: 04/19/2020 HISTORY OF PRESENT ILLNESS: The patient is an 79-year-old female with a past medical history of type 2 diabetes, chronic kidney disease, hypertension, hyperlipidemia, obesity, who was recently admitted to the Medicine Service for urinary tract infection, hypoglycemia, generalized weakness. Since treatment for her UTI and metabolic issues, she continues to be quite weak. Further discussion with the patient reveals that over the last few months, she has had progressive weakness in the arms and legs. She recently was admitted to [facility] 2 months ago after having difficulty caring for herself at home. She previously lived at home with her . She reports that a few months ago she was walking with a walker, but over the last month, she has been primarily wheelchair and bedbound due to significant weakness. She has weakness in both the upper and lower extremities but it is much more pronounced on the right side. She has been evaluated with MRI of the cervical and lumbar spine. In the cervical spine, she has severe central stenosis from C3-C5 as well as C6-C7. In the lumbar spine, she has severe central stenosis from L2-L5. Neurosurgery has been consulted for evaluation of her significant spinal stenosis. I visited the patient at the bedside. She is sitting up. She is comfortable and she is in no acute distress. She is eating her breakfast. She is noted to have significant weakness in the upper and lower extremities, right side much more pronounced than the left. In the bilateral upper extremities, she is unable to lift her arms overhead. She is quite weak with flexion of the elbow on the right, but seems to have decent core extruder strength in the right hand. In the left hand, she is significantly weak in left core extruder but seem to have good strength at the elbow. In the left lower extremity, she seems to have good strength 5/5 throughout. In the right lower extremity, she is unable lift the right leg off the bed. She has some weakness also in the right quad, but seems to have good strength in dorsi and plantar flexion in both the feet. She is noted to have positive clonus and be hyperreflexive throughout. PAST MEDICAL HISTORY: Diabetes, hypertension, hyperlipidemia, obesity, GERD. PAST SURGICAL HISTORY: No prior surgical history. SOCIAL HISTORY: She lives at the [facility]. She does not smoke, drink, or use any drugs. FAMILY HISTORY: Noncontributory. PHYSICAL EXAMINATION: VITAL SIGNS: Stable, afebrile. HEENT: Normocephalic, atraumatic. Eyes, PERRLA, extraocular movements intact. ENT, pink, intact, moist. She has normal voice. NECK: Nontender. Free active range of motion. No meningismus or nuchal rigidity. CARDIAC: Regular rate and rhythm. PULMONARY: Symmetric chest expansion. No evidence of dyspnea. MUSCULOSKELETAL: No obvious deformities. SKIN: [place], warm with symmetric pulses. NEUROLOGIC: A and O x4. She has weakness of right upper extremity proximal arm 2/5, 3/5 at the elbow, and 4/5 in the right core extruder. In the left upper extremity, she is 2/5 in the proximal arm, 4/5 at the elbow, and 3/5 in left core extruder. Left lower extremity, 5/5 strength throughout right lower extremity, 2/5 in the right hip flexor, 3/5 in the right quad, 5/5 with dorsiflexion and plantar flexion of the right foot. She is hyperreflexive throughout. She has positive clonus in both feet. ASSESSMENT AND PLAN: This is an 79-year-old female who is relatively healthy for her age, who was recently admitted by Medicine for hypoglycemia, UTI and generalized weakness. Workup of her progressive weakness in the extremities reveals severe stenosis of the cervical spine from C3-C5 as well as at C6-C7. In the lumbar spine, she also has quite severe central stenosis from L2-L5. Her spinal stenosis is quite significant and likely contributing to her overall mobility decline, myelopathic picture and ultimate placement in long-term recently. I have discussed this case with Dr. Snow. The case is quite complicated given her age and commorbidities. I have discussed with Dr. Snow. He will meet with the patient in person to discuss surgical option further. Job ID: [id number] [facility]
[2020-04-19] MEDS: Acetaminophen 325 MG TAB PO PRN (18:33)
[2020-04-19] MEDS: Atorvastatin Calcium 20 MG TAB PO SCH (20:59)
[2020-04-20] MEDS ORDERED: Levothyroxine Sodium 100 MCG TAB ONE (06:06)
[2020-04-20] MEDS ORDERED: Ferrous Sulfate 325 MG TAB ONE (07:40)
[2020-04-20] MEDS ORDERED: Saccharomyces boulardii 250 MG CAP ONE (07:40)
[2020-04-20] MEDS ORDERED: metFORMIN 500 MG TAB ONE (07:41)
[2020-04-20] MEDS ORDERED: Atorvastatin Calcium 20 MG TAB ONE (07:43)
[2020-04-20] MEDS ORDERED: Metoprolol Tartrate 50 MG TAB ONE (07:44)
[2020-04-20] MEDS ORDERED: Gabapentin 300 MG CAP ONE (07:44)
[2020-04-20] MEDS ORDERED: Amlodipine 10 MG TAB ONE (07:44)
[2020-04-20] MEDS ORDERED: Famotidine 20 MG TAB ONE (07:45)
[2020-04-20] MEDS ORDERED: Allopurinol 300 MG TAB ONE (07:45)
[2020-04-20] MEDS: traMADol HCl 50 MG TAB PO PRN ×3 (08:21→21:31)
[2020-04-20] MEDS ORDERED: Cephalexin 250 MG CAP PO SCH (09:30)
--- NOTE | 2020-04-20 12:14 | PRG ---
DATE OF SERVICE: 04/20/2020 SUBJECTIVE: The patient was seen and examined. I agree with Lis Michael's evaluation from 04/19/2020. The patient is an 79-year-old woman who was admitted with renal failure and possible UTI. She has had a profound quadriparesis with essentially being unable to walk for the last 2 months requiring prison stay. She is also weak in her upper extremities. MRI of the cervical spine reveals quite severe cervical stenosis from C3-C7. In the lumbar spine, she has severe lumbar stenosis from L2-S1. IMPRESSION AND PLAN: This is a quite complicated situation. The patient is of advanced age with multiple medical comorbidities and is at quite elevated operative risk. However, she has a profound cervical and lumbar stenosis causing progressive immobility. The only meaningful treatment option is cervical laminectomy from C3-C7 followed sometime thereafter by lumbar laminectomy from L2-S1. I discussed the situation at length with the patient and her via telephone yesterday as well as with all 3 daughters via teleconference yesterday. I explained to them the situation and the indications, risks, benefits, and alternatives of the C3-C7 laminectomy. I specifically estimated approximately 10% risk of , major neurologic deficit or other major complication. They expressed their understanding and wished to consider and let me know how they choose to proceed. I revisited Ms. Lopez this morning and she is inclined toward surgery. I will confirm this with the daughters and then make plans to schedule. Job ID: [id number]
[2020-04-20] MEDS: Cephalexin 250 MG CAP PO SCH ×2 (12:48→21:30)
[2020-04-20] MEDS: Amlodipine 10 MG TAB PO SCH (12:48)
[2020-04-20] MEDS: Ferrous Sulfate 325 MG TAB PO SCH ×2 (12:48→16:30)
[2020-04-20] MEDS: Levothyroxine Sodium 100 MCG TAB PO SCH (12:48)
[2020-04-20] MEDS: Allopurinol 300 MG TAB PO SCH (12:48)
[2020-04-20] MEDS: Famotidine 20 MG TAB PO SCH (12:48)
[2020-04-20] MEDS: Saccharomyces boulardii 250 MG CAP PO SCH (12:49)
[2020-04-20] MEDS: Gabapentin 300 MG CAP PO SCH ×2 (12:49→21:32)
[2020-04-20] MEDS: metFORMIN 500 MG TAB PO SCH ×2 (12:49→21:31)
[2020-04-20] MEDS: Metoprolol Tartrate 50 MG TAB PO SCH ×2 (12:49→21:33)
--- NOTE | 2020-04-20 13:40 | PDOC.HOSPP ---
- Subjective Encounter Date: 04/20/20 Encounter Time: 10:00 Subjective: F/u: spinal stenosis The patient has no new complaints, still has weakness in her arm and leg. She states surgeon saw her this morning and discussed neck surgery possibly in the next 1-2 days - Objective Vital Signs & Weight: Vital Signs (12 hours) Temp Pulse Resp BP BP Pulse Ox 04/20/20 12:48 92 139/76 04/20/20 09:37 98.3 F 92 18 139/76 100 Weight Weight 184 lb 3.2 oz I&O: 04/19/20 04/20/20 04/21/20 06:59 06:59 06:59 Intake Total 1670 1040 Output Total 1830 1300 Balance -160 -260 Result Diagrams: 04/14/20 05:46 04/18/20 05:09 Additional Labs: Accuchecks 04/20/20 04/20/20 04/19/20 11:59 05:11 20:53 POC Glucose 142 H 108 H 153 H 04/19/20 16:22 POC Glucose 138 H Hospitalist ROS - Review of Systems Constitutional: denies: fever, chills - Medication Medications: Active Medications Generic Name Dose Route Start Last Admin Trade Name Freq PRN Reason Stop Dose Admin Acetaminophen 650 mg 04/12/20 20:00 04/19/20 18:33 Acetaminophen 325 Mg Tab PO 650 mg Q4H PRN Administration Headache/Fever/Mild Pain (1-3) Allopurinol 300 mg 04/15/20 09:00 04/20/20 12:48 Allopurinol 300 Mg Tab PO Not Given DAILY ALECIA Amlodipine Besylate 10 mg 04/17/20 09:00 04/20/20 12:48 Amlodipine 10 Mg Tab PO Not Given DAILY ALECIA Atorvastatin Calcium 20 mg 04/14/20 21:00 04/19/20 20:59 Atorvastatin Calcium 20 Mg Tab PO 20 mg HS ALECIA Administration Cephalexin 500 mg 04/17/20 21:00 04/20/20 12:48 Cephalexin 250 Mg Cap PO 04/21/20 10:00 Not Given BID ALECIA Dextrose/Water 25 gm 04/12/20 19:58 04/13/20 01:22 Dextrose 50% Abboject 50 Ml Syringe SLOW IVP 25 gm PRN PRN Administration Hypoglycemia Famotidine 20 mg 04/15/20 09:00 04/20/20 12:48 Famotidine 20 Mg Tab PO Not Given DAILY [facility] Ferrous Sulfate 325 mg 04/13/20 17:00 04/20/20 12:48 Ferrous Sulfate 325 Mg Tab PO Not Given BID-[facility] Gabapentin 300 mg 04/14/20 21:00 04/20/20 12:49 Gabapentin 300 Mg Cap PO Not Given BID [facility] Hydralazine HCl 10 mg 04/16/20 09:40 04/17/20 01:25 Hydralazine 20 Mg/Ml Vial SLOW IVP 10 mg Q4H PRN Administration Blood Pressure SBP>150 Levothyroxine Sodium 100 mcg 04/15/20 06:00 04/20/20 12:48 Levothyroxine Sodium 100 Mcg Tab PO Not Given 06 [facility] Loperamide HCl 4 mg 04/14/20 19:36 04/17/20 20:25 Loperamide Hcl 2 Mg Cap PO 4 mg QID PRN Administration Diarrhea/Loose Stools Metformin HCl 500 mg 04/14/20 21:00 04/20/20 12:49 Metformin 500 Mg Tab PO Not Given BID [facility] Metoprolol Tartrate 75 mg 04/16/20 21:00 04/20/20 12:49 Metoprolol Tartrate 50 Mg Tab PO Not Given BID [facility] Ondansetron HCl 4 mg 04/16/20 10:00 04/19/20 18:33 Ondansetron Pf 4 Mg/2 Ml Vial IVP 4 mg Q6H PRN Administration Nausea/Vomiting Saccharomyces Boulardii 250 mg 04/15/20 09:00 04/20/20 12:49 Saccharomyces Boulardii 250 Mg Cap PO Not Given DAILY [facility] Tramadol HCl 50 mg 04/14/20 13:03 04/20/20 12:18 Tramadol Hcl 50 Mg Tab PO 50 mg Q4H PRN Administration Pain Hospitalist Exam Vitals: Vital Signs (12 hours) Temp Pulse Resp BP BP Pulse Ox 04/20/20 12:48 92 139/76 04/20/20 09:37 98.3 F 92 18 139/76 100 Weight Weight 184 lb 3.2 oz General Appearance: NAD, awake alert Eye: PERRL, anicteric sclera ENT: normocephalic atraumatic, no oropharyngeal lesions Neck: no JVD Heart: RRR, no murmur, no gallops, no rubs Respiratory: CTAB, no wheezes, no rales, no ronchi Gastrointestinal: soft, non-tender, non-distended, normal bowel sounds Gastrointestinal - other findings: jewell catheter Extremities: no cyanosis, no clubbing, no edema Neurological - other findings: weakness on right arm and right leg Hosp A/P - Plan MRI cervical spine: advanced multilevel cervical spondylosis with multilevel central canal and neural foraminal narrowing MRI brain: no acute infarction. Age appropriate atrophy. Chronic small vessel ischemic changes Chest Xray: normal MRI lumbar spine: very severe stenosis at L4-L5 This is an 79 year old female who presented with hypoglycemia and confusion for the past few days. She was found to have a UTI as well and admitted UTI - urine culture growing reinaldo. She currently has jewell catheter. Jewell was removed, she failed voiding trial and jewell was replaced. Continue cephalex until 02/18 Severe lumbar spinal stenosis - MRi lumbar spine 03/2019 showed severe stenosis at L4-L5 and some urine retention. She does have bilateral weakness, R > L. Neurosurgery was consulted, they are planning for neck surgery possibly in the next 1-2 days History of heart murmur - don't hear obvious murmur, ECHO pending No active CHF symptoms that would preclude any type of surgery Hypoglycemia -resolved. Blood sugars normalized. IV fluids with dextrose discontinued Type II diabetes- blood sugars controlled - continue metformin Anemia - Hb 8, stable. Awaiting CBC results today
[2020-04-20] MEDS: traMADol HCl 50 MG TAB ONE ×2 (16:03→16:11)
[2020-04-20 18:08] LABS: Anion Gap 15 mmol/L (10-20); BUN (Urea Nitrogen) 6 mg/dL (9.8-20.1); Calc. Creatinine Clearance 86 mL/min (70-130); Calcium 8.6 mg/dL (7.8-10.44); Carbon Dioxide 20 mmol/L (23-31); Chloride 108 mmol/L (98-107); Glucose 110 mg/dL (83-110); Potassium 3.6 mmol/L (3.5-5.1); Sodium 139 mmol/L (136-145)
[2020-04-20 19:32] LABS: Hemoglobin 9.4 g/dL (12.0-16.0); Mean Corpuscular HGB CONC 32.3 g/dL (32.0-36.0); Mean Corpuscular Hemoglobin 27.2 pg (27.0-31.0); Mean Corpuscular Volume 84.2 fL (78.0-98.0); Mean Platelet Volume 7.9 fL (7.4-10.4); Platelet Count 313 thou/uL (130-400); RBC Distribution Width 14.4 % (11.5-14.5); Red Blood Cell (RBC) Count 3.44 mill/uL (4.20-5.40)
[2020-04-20 20:46] LABS: Prothrombin Time 13.4 sec (12.0-14.7)
[2020-04-20] MEDS: Atorvastatin Calcium 20 MG TAB PO SCH (21:29)
[2020-04-21] MEDS: Levothyroxine Sodium 100 MCG TAB PO SCH (05:40)
[2020-04-21] MEDS: Cephalexin 250 MG CAP PO SCH (08:08)
[2020-04-21] MEDS: metFORMIN 500 MG TAB PO SCH ×2 (08:09→20:21)
[2020-04-21] MEDS: Metoprolol Tartrate 50 MG TAB PO SCH ×2 (08:09→20:21)
[2020-04-21] MEDS: Allopurinol 300 MG TAB PO SCH (08:09)
[2020-04-21] MEDS: Ferrous Sulfate 325 MG TAB PO SCH ×2 (08:10→15:39)
[2020-04-21] MEDS: Gabapentin 300 MG CAP PO SCH ×2 (08:10→20:21)
[2020-04-21] MEDS: Saccharomyces boulardii 250 MG CAP PO SCH (08:10)
[2020-04-21] MEDS: Famotidine 20 MG TAB PO SCH (08:10)
[2020-04-21] MEDS: Amlodipine 10 MG TAB PO SCH (08:10)
[2020-04-21] MEDS: traMADol HCl 50 MG TAB PO PRN ×2 (08:13→20:23)
--- NOTE | 2020-04-21 11:37 | PRG ---
DATE OF SERVICE: 04/21/2020 We have recently evaluated the patient for severe lumbar and cervical stenosis. Dr. Dr Snow has visited with the patient and family as well. We will plan on C3-C7 laminectomy for . I visited with the patient to address any additional questions. The patient is sitting up comfortably. She has no changes in her neurologic exam. We will make the patient n.p.o. at midnight on Monday. Preop consent has been ordered. I have addressed all patient questions. Job ID: [id number] MTDD
--- NOTE | 2020-04-21 16:11 | PDOC.HOSPP ---
- Subjective Encounter Date: 04/21/20 Encounter Time: 09:30 Subjective: F/u: arm and leg weakness The patient still can't lift her right arm or leg much. She is scheduled for surgery on Diarrhea - this has resolved - Objective Vital Signs & Weight: Vital Signs (12 hours) Temp Pulse Resp BP BP BP Pulse Ox 04/21/20 12:00 98.2 F 80 20 120/68 99 04/21/20 09:15 98 04/21/20 08:10 85 145/75 H 04/21/20 08:07 98.7 F 85 18 145/75 H 98 Weight Weight 184 lb 3.2 oz I&O: 04/20/20 04/21/20 04/22/20 06:59 06:59 06:59 Intake Total 1040 1000 60 Output Total 1300 475 Balance -260 1000 -415 Result Diagrams: 04/20/20 05:33 04/20/20 05:33 Additional Labs: Accuchecks 04/21/20 04/21/20 04/20/20 12:00 05:07 20:24 POC Glucose 134 H 104 H 166 H 04/20/20 17:27 POC Glucose 151 H Hospitalist ROS - Review of Systems Constitutional: denies: fever, chills - Medication Medications: Active Medications Generic Name Dose Route Start Last Admin Trade Name Freq PRN Reason Stop Dose Admin Acetaminophen 650 mg 04/12/20 20:00 04/19/20 18:33 Acetaminophen 325 Mg Tab PO 650 mg Q4H PRN Administration Headache/Fever/Mild Pain (1-3) Amlodipine Besylate 10 mg 04/17/20 09:00 04/21/20 08:10 Amlodipine 10 Mg Tab PO 10 mg DAILY ALECIA Administration Atorvastatin Calcium 20 mg 04/14/20 21:00 04/20/20 21:29 Atorvastatin Calcium 20 Mg Tab PO 20 mg HS ALECIA Administration Dextrose/Water 25 gm 04/12/20 19:58 04/13/20 01:22 Dextrose 50% Abboject 50 Ml Syringe SLOW IVP 25 gm PRN PRN Administration Hypoglycemia Famotidine 20 mg 04/15/20 09:00 04/21/20 08:10 Famotidine 20 Mg Tab PO 20 mg DAILY ALECIA Administration Ferrous Sulfate 325 mg 04/13/20 17:00 04/21/20 15:39 Ferrous Sulfate 325 Mg Tab PO 325 mg BID-WM ALECIA Administration Gabapentin 300 mg 04/14/20 21:00 04/21/20 08:10 Gabapentin 300 Mg Cap PO 300 mg BID ALECIA Administration Hydralazine HCl 10 mg 04/16/20 09:40 04/17/20 01:25 Hydralazine 20 Mg/Ml Vial SLOW IVP 10 mg Q4H PRN Administration Blood Pressure SBP>150 Levothyroxine Sodium 100 mcg 04/15/20 06:00 04/21/20 05:40 Levothyroxine Sodium 100 Mcg Tab PO 100 mcg 0600 ALECIA Administration Loperamide HCl 4 mg 04/14/20 19:36 04/17/20 20:25 Loperamide Hcl 2 Mg Cap PO 4 mg QID PRN Administration Diarrhea/Loose Stools Metformin HCl 500 mg 04/14/20 21:00 04/21/20 08:09 Metformin 500 Mg Tab PO 500 mg BID ALECIA Administration Metoprolol Tartrate 75 mg 04/16/20 21:00 04/21/20 08:09 Metoprolol Tartrate 50 Mg Tab PO 75 mg BID ALECIA Administration Ondansetron HCl 4 mg 04/16/20 10:00 04/19/20 18:33 Ondansetron Pf 4 Mg/2 Ml Vial IVP 4 mg Q6H PRN Administration Nausea/Vomiting Saccharomyces Boulardii 250 mg 04/15/20 09:00 04/21/20 08:10 Saccharomyces Boulardii 250 Mg Cap PO 250 mg DAILY ALECIA Administration Tramadol HCl 50 mg 04/14/20 13:03 04/21/20 08:13 Tramadol Hcl 50 Mg Tab PO 50 mg Q4H PRN Administration Pain Hospitalist Exam Vitals: Vital Signs (12 hours) Temp Pulse Resp BP BP BP Pulse Ox 04/21/20 12:00 98.2 F 80 20 120/68 99 04/21/20 09:15 98 04/21/20 08:10 85 145/75 H 04/21/20 08:07 98.7 F 85 18 145/75 H 98 Weight Weight 184 lb 3.2 oz General Appearance: NAD, awake alert Eye: PERRL, anicteric sclera ENT: normocephalic atraumatic, no oropharyngeal lesions Neck: no JVD Heart: RRR, no murmur, no gallops, no rubs Respiratory: CTAB, no wheezes, no rales Gastrointestinal: soft, non-tender, non-distended, normal bowel sounds Extremities: no cyanosis, no clubbing, no edema Skin: normal turgor, no lesions, no rashes Neurological - other findings: right arm and leg weakness Hosp A/P - Plan MRI cervical spine: advanced multilevel cervical spondylosis with multilevel central canal and neural foraminal narrowing MRI brain: no acute infarction. Age appropriate atrophy. Chronic small vessel ischemic changes Chest Xray: normal MRI lumbar spine: very severe stenosis at L4-L5 This is an 79 year old female who presented with hypoglycemia and confusion for the past few days. She was found to have a UTI as well and admitted UTI - urine culture growing reinaldo. She currently has jewell catheter. Jewell was removed, she failed voiding trial and jewell was replaced. Continue cephalex until 02/18 Severe lumbar spinal stenosis - MRi lumbar spine 03/2019 showed severe stenosis at L4-L5 and some urine retention. She does have bilateral weakness, R > L. Neurosurgery was consulted, they are planning for neck surgery on with C3-C7 laminectomy History of heart murmur - don't hear obvious murmur, ECHO pending No active CHF symptoms that would preclude any type of surgery Hypoglycemia -resolved. Blood sugars normalized. IV fluids with dextrose discontinued Type II diabetes- blood sugars controlled - continue metformin Anemia - Hb 8, stable. Awaiting CBC results today
[2020-04-21] MEDS: HumaLOG 300 UNITS/3 ML VIAL SC PRN ×2 (16:36→20:28)
[2020-04-21] MEDS: Atorvastatin Calcium 20 MG TAB PO SCH (20:20)
[2020-04-21] MEDS: Acetaminophen 325 MG TAB PO PRN (20:22)
[2020-04-22] MEDS: Levothyroxine Sodium 100 MCG TAB PO SCH (05:30)
[2020-04-22] MEDS: Gabapentin 300 MG CAP PO SCH ×2 (08:31→20:26)
[2020-04-22] MEDS: Famotidine 20 MG TAB PO SCH (08:31)
[2020-04-22] MEDS: Metoprolol Tartrate 50 MG TAB PO SCH ×2 (08:32→20:24)
[2020-04-22] MEDS: Amlodipine 10 MG TAB PO SCH (08:32)
[2020-04-22] MEDS: Ferrous Sulfate 325 MG TAB PO SCH ×2 (08:34→16:32)
[2020-04-22] MEDS: metFORMIN 500 MG TAB PO SCH ×2 (08:34→20:33)
[2020-04-22] MEDS: Saccharomyces boulardii 250 MG CAP PO SCH (08:34)
[2020-04-22] MEDS: traMADol HCl 50 MG TAB PO PRN ×3 (08:43→20:26)
--- NOTE | 2020-04-22 09:25 | PRG ---
DATE OF SERVICE: 04/22/2020 No overnight events. The patient is sitting up comfortably and has no acute complaints at this time. We will plan for C3 through C7 laminectomy tomorrow afternoon. The patient has been made n.p.o. at midnight. Consent ordered. All questions addressed. Job ID: [id number]
--- NOTE | 2020-04-22 15:51 | PDOC.HOSPP ---
- Subjective Encounter Date: 04/22/20 Encounter Time: 15:49 Subjective: F/u: spinal stenosis The patient has no tingling or numbness in her arms. She is still weak on right side. Her hands are very painful with slight movement however , especially right index finger. She thinks she has history of gout and rheumatoid arthritis but is not on medication - Objective Vital Signs & Weight: Vital Signs (12 hours) Temp Pulse Resp BP BP Pulse Ox 04/22/20 08:32 89 129/72 04/22/20 08:00 98.7 F 88 20 140/73 97 04/22/20 04:00 98.5 F 89 18 141/75 H 97 Weight Weight 184 lb 3.2 oz I&O: 04/21/20 04/22/20 04/23/20 06:59 06:59 06:59 Intake Total 1000 1230 Output Total 1475 Balance 1000 -245 Result Diagrams: 04/20/20 05:33 04/20/20 05:33 Additional Labs: Accuchecks 04/22/20 04/22/20 04/21/20 11:24 05:24 20:15 POC Glucose 154 H 88 246 H 04/21/20 16:06 POC Glucose 212 H Hospitalist ROS - Review of Systems Constitutional: denies: fever, chills - Medication Medications: Active Medications Generic Name Dose Route Start Last Admin Trade Name Freq PRN Reason Stop Dose Admin Acetaminophen 650 mg 04/12/20 20:00 04/21/20 20:22 Acetaminophen 325 Mg Tab PO 650 mg Q4H PRN Administration Headache/Fever/Mild Pain (1-3) Amlodipine Besylate 10 mg 04/17/20 09:00 04/22/20 08:32 Amlodipine 10 Mg Tab PO 10 mg DAILY ALECIA Administration Atorvastatin Calcium 20 mg 04/14/20 21:00 04/21/20 20:20 Atorvastatin Calcium 20 Mg Tab PO 20 mg HS ALECIA Administration Dextrose/Water 25 gm 04/12/20 19:58 04/13/20 01:22 Dextrose 50% Abboject 50 Ml Syringe SLOW IVP 25 gm PRN PRN Administration Hypoglycemia Famotidine 20 mg 04/15/20 09:00 04/22/20 08:31 Famotidine 20 Mg Tab PO 20 mg DAILY ALECIA Administration Ferrous Sulfate 325 mg 04/13/20 17:00 04/22/20 08:34 Ferrous Sulfate 325 Mg Tab PO 325 mg BID-WM ALECIA Administration Gabapentin 300 mg 04/14/20 21:00 04/22/20 08:31 Gabapentin 300 Mg Cap PO 300 mg BID ALECIA Administration Hydralazine HCl 10 mg 04/16/20 09:40 04/17/20 01:25 Hydralazine 20 Mg/Ml Vial SLOW IVP 10 mg Q4H PRN Administration Blood Pressure SBP>150 Insulin Human Lispro 0 units 04/12/20 19:58 04/21/20 16:36 Humalog 300 Units/3 Ml Vial SC 3 unit .MILD SLIDING SCALE PRN Administration Mild Correctional Scale Insulin Human Lispro 0 units 04/12/20 19:58 04/21/20 20:28 Humalog 300 Units/3 Ml Vial SC 2 unit .BEDTIME SLIDING SC PRN Administration Bedtime Correctional Scale Levothyroxine Sodium 100 mcg 04/15/20 06:00 04/22/20 05:30 Levothyroxine Sodium 100 Mcg Tab PO 100 mcg 0600 ALECIA Administration Loperamide HCl 4 mg 04/14/20 19:36 04/17/20 20:25 Loperamide Hcl 2 Mg Cap PO 4 mg QID PRN Administration Diarrhea/Loose Stools Metformin HCl 500 mg 04/14/20 21:00 04/22/20 08:34 Metformin 500 Mg Tab PO 500 mg BID ALECIA Administration Metoprolol Tartrate 75 mg 04/16/20 21:00 04/22/20 08:32 Metoprolol Tartrate 50 Mg Tab PO 75 mg BID ALECIA Administration Ondansetron HCl 4 mg 04/16/20 10:00 04/19/20 18:33 Ondansetron Pf 4 Mg/2 Ml Vial IVP 4 mg Q6H PRN Administration Nausea/Vomiting Saccharomyces Boulardii 250 mg 04/15/20 09:00 04/22/20 08:34 Saccharomyces Boulardii 250 Mg Cap PO 250 mg DAILY ALECIA Administration Tramadol HCl 50 mg 04/14/20 13:03 04/22/20 12:42 Tramadol Hcl 50 Mg Tab PO 50 mg Q4H PRN Administration Pain Hospitalist Exam Vitals: Vital Signs (12 hours) Temp Pulse Resp BP BP Pulse Ox 04/22/20 08:32 89 129/72 04/22/20 08:00 98.7 F 88 20 140/73 97 04/22/20 04:00 98.5 F 89 18 141/75 H 97 Weight Weight 184 lb 3.2 oz General Appearance: NAD, awake alert Eye: PERRL. negative: anicteric sclera ENT: normocephalic atraumatic, no oropharyngeal lesions Neck: no JVD Heart: RRR, no murmur, no gallops, no rubs Respiratory: CTAB, no wheezes, no rales, no ronchi Gastrointestinal: soft, non-tender, non-distended, normal bowel sounds Extremities: no cyanosis, no clubbing, no edema Skin: normal turgor, no lesions, no rashes Neurological: cranial nerve grossly intact, normal sensation to touch, no weakness Musculoskeletal: normal tone, normal strength, no muscle wasting Musculoskeletal - other findings: right finger swollen, appears to have synovitis in DIP joints and PIP Psychiatric: normal affect, normal behavior, A&O x 3 Hosp A/P - Plan MRI cervical spine: advanced multilevel cervical spondylosis with multilevel central canal and neural foraminal narrowing MRI brain: no acute infarction. Age appropriate atrophy. Chronic small vessel i schemic changes Chest Xray: normal MRI lumbar spine: very severe stenosis at L4-L5 This is an 79 year old female who presented with hypoglycemia and confusion for the past few days. She was found to have a UTI as well and admitted UTI - urine culture growing reinaldo. She currently has jewell catheter. Jewell was removed, she failed voiding trial and jewell was replaced. Continue cephalex until 02/18. Switched to cefazolin preoperatively Severe lumbar spinal stenosis - MRi lumbar spine 03/2019 showed severe stenosis at L4-L5 and some urine retention. She does have bilateral weakness, R > L. Neurosurgery was consulted, they are planning for neck surgery on with C3-C7 laminectomy Right finger swelling/bilateral hand swelling - right finger very tender to palpation, displays rigidity on wrists as well to movement. Will check bilateral hand Xray History of heart murmur - ECHO showed diastolic dysfunction, no murmur Hypoglycemia -resolved. Blood sugars normalized. IV fluids with dextrose discontinued Type II diabetes- blood sugars controlled - continue metformin Anemia - stable
--- NOTE | 2020-04-22 16:37 | RAD ---
RIGHT HAND THREE VIEWS: Indications: Hand pain. FINDINGS: Severe degenerative change at the first carpal metacarpal joint. Mild degenerative change at the MCP joints with mild spurring. Moderate degenerative change at the IP joints with prominent spurring seen dorsally at the DIP joints of the second through fifth digits. IMPRESSION: Osteoarthritic changes as described. POS: AGW
--- NOTE | 2020-04-22 16:40 | RAD ---
LEFT HAND THREE VIEWS: Indications: Synovitis. Hand pain. FINDINGS: Moderate degenerative change at the first carpal metacarpal joint. Moderate degenerative change at th e first, second, and third MCP joints with narrowing and hypertropic spurring. Extraosseous calcification adjacent to the head of the fourth metacarpal at the MCP joint. Mild to moderate degenerative changes of the IP joints with dorsal spurring at the DIP joints. IMPRESSION: Osteoarthritic changes as described. POS: MARIBEL
[2020-04-22] MEDS: Acetaminophen 325 MG TAB PO PRN (20:25)
[2020-04-22] MEDS: Atorvastatin Calcium 20 MG TAB PO SCH (20:25)
[2020-04-23] MEDS: Levothyroxine Sodium 100 MCG TAB PO SCH (05:10)
--- NOTE | 2020-04-23 07:29 | PRG ---
DATE OF SERVICE: I visited the patient at the bedside on . She is resting comfortably. She is not having overnight events or any complaints at this time. She continues to be quite weak in her extremities, particularly on the right greater than left. I addressed all questions for C3-C7 laminectomy, which we have planned later today. She has been n.p.o. overnight. Consent has been signed. Plans for surgery this afternoon. Job ID: [id number]
[2020-04-23] MEDS: Metoprolol Tartrate 50 MG TAB PO SCH ×2 (07:42→20:51)
[2020-04-23] MEDS: Ferrous Sulfate 325 MG TAB PO SCH ×2 (07:55→16:35)
[2020-04-23] MEDS: Amlodipine 10 MG TAB PO SCH (07:55)
[2020-04-23] MEDS: Gabapentin 300 MG CAP PO SCH ×2 (07:56→20:52)
[2020-04-23] MEDS: metFORMIN 500 MG TAB PO SCH ×2 (07:56→20:54)
[2020-04-23] MEDS: Saccharomyces boulardii 250 MG CAP PO SCH (07:56)
[2020-04-23] MEDS: Famotidine 20 MG TAB PO SCH (07:56)
[2020-04-23] MEDS ORDERED: Bacitracin Zinc Ointment 30 gm TUBE ONE (09:24)
[2020-04-23] MEDS ORDERED: Fentanyl 100 MCG/2 ML VIAL ONE ×4 (09:26→13:54)
[2020-04-23] MEDS ORDERED: CEFAZOLIN 2 GM in Premix Bag 1 BAG IVPB SCH (11:00)
--- NOTE | 2020-04-23 12:46 | OP ---
DATE OF PROCEDURE: 04/23/2020 [employer] ATTORNEY: Alec. PROCEDURE: C3 to C7 laminectomy. PROCEDURE: The patient was brought to the operating room and intubated. She was rolled in a prone position on gel-filled chest rolls. An incision was made exposing C3 through C7, and the level was confirmed by x-ray. We performed complete C7, complete C6, complete C5, complete C4, complete C3 laminectomies, completely decompressing the neural elements. The wound was extensively irrigated. Maximum hemostasis was secured. Vancomycin powder was applied, and the wound was closed in anatomic layers over a drain. Job ID: [id number]
[2020-04-23] MEDS ORDERED: tiZANidine HCl 4 MG TAB PO PRN (12:51)
[2020-04-23] MEDS ORDERED: Ondansetron PF 4 MG/2 ML Vial ONE (16:06)
[2020-04-23] MEDS ORDERED: Dexamethasone 20 MG/5 ML VIAL ONE (16:06)
[2020-04-23] MEDS ORDERED: Lidocaine 1% PF 5 ML VIAL ONE (16:06)
[2020-04-23] MEDS ORDERED: Rocuronium Bromide 10 MG/ML (10ML VIAL) ONE (16:06)
[2020-04-23] MEDS ORDERED: Glycopyrrolate 0.2 MG/ML 5 ML SYRINGE ONE (16:06)
[2020-04-23] MEDS ORDERED: PROPOFOL 200 MG/20 ML VIAL ONE (16:06)
[2020-04-23] MEDS: Morphine 2 MG/ML VIAL SLOW IVP PRN ×2 (16:33→20:54)
[2020-04-23] MEDS: HumaLOG 300 UNITS/3 ML VIAL SC PRN (17:18)
[2020-04-23] MEDS: CEFAZOLIN 2 GM in Premix Bag 1 BAG IVPB SCH (17:19)
--- NOTE | 2020-04-23 17:27 | PDOC.HOSPP ---
- Subjective Encounter Date: 04/23/20 Encounter Time: 17:25 Subjective: F/u: sp surgery The patient is doing well. She still has some weakness in her right arm and leg, she thinks about the same. No tingling or numbness. Jewell catheter is in place She complains her throat is sore from the intubation - Objective Vital Signs & Weight: Vital Signs (12 hours) Temp Pulse Resp BP BP Pulse Ox 04/23/20 14:23 98.3 F 92 18 129/74 98 04/23/20 09:00 98.2 F 88 18 146/82 H 98 04/23/20 07:55 90 04/23/20 05:26 98.5 F 90 17 147/75 H 97 Weight Admit Weight 184 lb 3.2 oz Weight 184 lb 3.2 oz I&O: 04/22/20 04/23/20 04/24/20 06:59 06:59 06:59 Intake Total 1230 600 Output Total 1475 800 Balance -245 -200 Result Diagrams: 04/20/20 05:33 04/20/20 05:33 Additional Labs: Accuchecks 04/23/20 04/23/20 04/23/20 15:54 09:03 05:22 POC Glucose 237 H 112 H 116 H 04/22/20 20:32 POC Glucose 145 H Hospitalist ROS - Review of Systems Constitutional: denies: fever, chills - Medication Medications: Active Medications Generic Name Dose Route Start Last Admin Trade Name Freq PRN Reason Stop Dose Admin Acetaminophen 650 mg 04/12/20 20:00 04/22/20 20:25 Acetaminophen 325 Mg Tab PO 650 mg Q4H PRN Administration Headache/Fever/Mild Pain (1-3) Amlodipine Besylate 10 mg 04/17/20 09:00 04/23/20 07:55 Amlodipine 10 Mg Tab PO Not Given DAILY ALECIA Atorvastatin Calcium 20 mg 04/14/20 21:00 04/22/20 20:25 Atorvastatin Calcium 20 Mg Tab PO 20 mg HS ALECIA Administration Dextrose/Water 25 gm 04/12/20 19:58 04/13/20 01:22 Dextrose 50% Abboject 50 Ml Syringe SLOW IVP 25 gm PRN PRN Administration Hypoglycemia Famotidine 20 mg 04/15/20 09:00 04/23/20 07:56 Famotidine 20 Mg Tab PO Not Given DAILY ALECIA Ferrous Sulfate 325 mg 04/13/20 17:00 04/23/20 16:35 Ferrous Sulfate 325 Mg Tab PO 325 mg BID-WM [facility] Administration Gabapentin 300 mg 04/14/20 21:00 04/23/20 07:56 Gabapentin 300 Mg Cap PO Not Given BID [facility] Hydralazine HCl 10 mg 04/16/20 09:40 04/17/20 01:25 Hydralazine 20 Mg/Ml Vial SLOW IVP 10 mg Q4H PRN Administration Blood Pressure SBP>150 Insulin Human Lispro 0 units 04/12/20 19:58 04/21/20 16:36 Humalog 300 Units/3 Ml Vial SC 3 unit .MILD SLIDING SCALE PRN Administration Mild Correctional Scale Insulin Human Lispro 0 units 04/12/20 19:58 04/21/20 20:28 Humalog 300 Units/3 Ml Vial SC 2 unit .BEDTIME SLIDING SC PRN Administration Bedtime Correctional Scale Levothyroxine Sodium 100 mcg 04/15/20 06:00 04/23/20 05:10 Levothyroxine Sodium 100 Mcg Tab PO Not Given 0600 [facility] Loperamide HCl 4 mg 04/14/20 19:36 04/17/20 20:25 Loperamide Hcl 2 Mg Cap PO 4 mg QID PRN Administration Diarrhea/Loose Stools Metformin HCl 500 mg 04/14/20 21:00 04/23/20 07:56 Metformin 500 Mg Tab PO Not Given BID [facility] Metoprolol Tartrate 75 mg 04/16/20 21:00 04/23/20 07:42 Metoprolol Tartrate 50 Mg Tab PO 75 mg BID [facility] Administration Morphine Sulfate 2 mg 04/23/20 12:52 04/23/20 16:33 Morphine 2 Mg/Ml Vial SLOW IVP 2 mg Q4H PRN Administration Moderate to Severe Pain (6-10) Ondansetron HCl 4 mg 04/16/20 10:00 04/19/20 18:33 Ondansetron Pf 4 Mg/2 Ml Vial IVP 4 mg Q6H PRN Administration Nausea/Vomiting Saccharomyces Boulardii 250 mg 04/15/20 09:00 04/23/20 07:56 Saccharomyces Boulardii 250 Mg Cap PO Not Given DAILY [facility] Tramadol HCl 50 mg 04/14/20 13:03 02/17/21 20:26 Tramadol Hcl 50 Mg Tab PO 50 mg Q4H PRN Administration Pain Hospitalist Exam Vitals: Vital Signs (12 hours) Temp Pulse Resp BP BP Pulse Ox 04/23/20 14:23 98.3 F 92 18 129/74 98 04/23/20 09:00 98.2 F 88 18 146/82 H 98 04/23/20 07:55 90 04/23/20 05:26 98.5 F 90 17 147/75 H 97 Weight Admit Weight 184 lb 3.2 oz Weight 184 lb 3.2 oz General Appearance: NAD, awake alert Eye: PERRL, anicteric sclera ENT: normocephalic atraumatic, no oropharyngeal lesions Neck: no JVD Heart: RRR, no murmur, no gallops, no rubs Respiratory: CTAB, no wheezes, no rales, no ronchi Gastrointestinal: soft, non-tender, non-distended, normal bowel sounds Extremities: no cyanosis, no clubbing, no edema Skin: normal turgor, no lesions, no rashes Neurological: cranial nerve grossly intact, normal sensation to touch, no weakness Hosp A/P - Plan MRI cervical spine: advanced multilevel cervical spondylosis with multilevel central canal and neural foraminal narrowing MRI brain: no acute infarction. Age appropriate atrophy. Chronic small vessel ischemic changes Chest Xray: normal MRI lumbar spine: very severe stenosis at L4-L5 Hand X ray: reviewed both. 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 She was found to have a UTI as well and admitted UTI - urine culture growing reinaldo. She currently has jewell catheter. Jewell was removed, she failed voiding trial and jewell was replaced. She finished course of cephalexin. Switched to cefazolin preoperatively Severe lumbar spinal stenosis s/p C3-C7 laminectomy - MRi lumbar spine 03/2019 showed severe stenosis at L4-L5 and some urine retention. She is s/p C3 - C7 laminectomy - will order PT Right finger swelling/bilateral hand swelling - bilateral hand X ray showed extensive DJD , continue outpatient follow up History of heart murmur - ECHO showed diastolic dysfunction, no murmur Hypoglycemia -resolved. Blood sugars normalized. IV fluids with dextrose discontinued Type II diabetes- blood sugars controlled - continue metformin Anemia - stable
[2020-04-23] MEDS: Atorvastatin Calcium 20 MG TAB PO SCH (20:48)
[2020-04-24] MEDS: CEFAZOLIN 2 GM in Premix Bag 1 BAG IVPB SCH ×3 (01:19→16:52)
[2020-04-24] MEDS: Acetaminophen/Codeine 30-300mg Tablet PO PRN ×3 (01:20→23:06)
[2020-04-24] MEDS: Levothyroxine Sodium 100 MCG TAB PO SCH (05:30)
[2020-04-24] MEDS: HumaLOG 300 UNITS/3 ML VIAL SC PRN ×3 (05:32→16:53)
[2020-04-24] MEDS: Saccharomyces boulardii 250 MG CAP PO SCH (08:30)
[2020-04-24] MEDS: Gabapentin 300 MG CAP PO SCH ×2 (08:30→20:34)
[2020-04-24] MEDS: Famotidine 20 MG TAB PO SCH (08:31)
[2020-04-24] MEDS: Ferrous Sulfate 325 MG TAB PO SCH ×2 (08:31→16:52)
[2020-04-24] MEDS: metFORMIN 500 MG TAB PO SCH ×2 (08:31→20:35)
[2020-04-24] MEDS: Amlodipine 10 MG TAB PO SCH (08:31)
[2020-04-24] MEDS: Metoprolol Tartrate 50 MG TAB PO SCH ×2 (08:32→20:36)
[2020-04-24 08:56] LABS: Hemoglobin 9.3 g/dL (12.0-16.0); Mean Corpuscular HGB CONC 32.1 g/dL (32.0-36.0); Mean Corpuscular Volume 84.1 fL (78.0-98.0); Platelet Count 419 thou/uL (130-400); RBC Distribution Width 14.4 % (11.5-14.5); Red Blood Cell (RBC) Count 3.43 mill/uL (4.20-5.40); White Blood Cell (WBC) Count 13.2 thou/uL (4.8-10.8)
[2020-04-24 09:16] LABS: Anion Gap 19 mmol/L (10-20); BUN (Urea Nitrogen) 13 mg/dL (9.8-20.1); Calc. Creatinine Clearance 61 mL/min (70-130); Calcium 8.3 mg/dL (7.8-10.44); Carbon Dioxide 19 mmol/L (23-31); Chloride 100 mmol/L (98-107); Glucose 184 mg/dL (83-110); Potassium 3.9 mmol/L (3.5-5.1); Sodium 134 mmol/L (136-145)
--- NOTE | 2020-04-24 09:38 | PRG ---
DATE OF SERVICE: 04/24/2020 The patient is postoperative day #1, status post C3 to C7 laminectomy. [facility] She reports her pain has been well controlled with p.o. medication, and she is tolerating a regular diet. She reports improved strength and sensation, particularly in the upper extremities. Guaman catheter remains in place due to urinary retention. Vital signs are stable. She has been afebrile overnight. WBC is 13.2 today. On exam, the patient is awake, alert, oriented x4. She was moving all extremities well in the bed. This has significantly improved compared to prior exam. The patient's strength and sensation have improved significantly since her surgery. She would benefit from inpatient rehab, and a screen has been placed. I will leave her ELKIN drain in place another night. We will continue to have her work with PT and OT while she is here with us. I anticipate transition to rehab over the weekend. Job ID: [id number]
--- NOTE | 2020-04-24 11:10 | PDOC.HOSPP ---
- Subjective Encounter Date: 04/24/20 Encounter Time: 10:00 Subjective: f/u: s/p laminectomy The patient has no neck pain. She is able to move her right arm and right leg slightly more than yesterday. She had a bowel movement No SOB or cough - Objective Vital Signs & Weight: Vital Signs (12 hours) Temp Pulse Resp BP BP Pulse Ox 04/24/20 08:31 84 118/70 04/24/20 07:39 98.2 F 84 16 118/70 98 04/24/20 04:00 98.2 F 91 18 131/66 97 04/24/20 00:00 98.9 F 105 H 20 143/69 H 99 Weight Admit Weight 184 lb 3.2 oz Weight 184 lb 3.2 oz I&O: 04/23/20 04/24/20 04/25/20 06:59 06:59 06:59 Intake Total 600 750 Output Total 800 590 Balance -200 160 Result Diagrams: 04/24/20 08:45 04/24/20 08:45 Additional Labs: Accuchecks 04/24/20 04/23/20 04/23/20 05:30 20:48 15:54 POC Glucose 195 H 218 H 237 H Hospitalist ROS - Review of Systems Constitutional: denies: fever, chills - Medication Medications: Active Medications Generic Name Dose Route Start Last Admin Trade Name Freq PRN Reason Stop Dose Admin Acetaminophen 650 mg 04/12/20 20:00 04/22/20 20:25 Acetaminophen 325 Mg Tab PO 650 mg Q4H PRN Administration Headache/Fever/Mild Pain (1-3) Acetaminophen/Codeine Phosphate 2 tab 04/23/20 12:51 04/24/20 08:54 Acetaminophen/Codeine 30-300mg Tablet PO 2 tab Q6H PRN Administration Moderate Pain (4-6) Amlodipine Besylate 10 mg 04/17/20 09:00 04/24/20 08:31 Amlodipine 10 Mg Tab PO 10 mg DAILY ALECIA Administration Atorvastatin Calcium 20 mg 04/14/20 21:00 04/23/20 20:48 Atorvastatin Calcium 20 Mg Tab PO 20 mg HS ALECIA Administration Dextrose/Water 25 gm 04/12/20 19:58 04/13/20 01:22 Dextrose 50% Abboject 50 Ml Syringe SLOW IVP 25 gm PRN PRN Administration Hypoglycemia Famotidine 20 mg 04/15/20 09:00 04/24/20 08:31 Famotidine 20 Mg Tab PO 20 mg DAILY ALECIA Administration Ferrous Sulfate 325 mg 04/13/20 17:00 04/24/20 08:31 Ferrous Sulfate 325 Mg Tab PO 325 mg BID-WM ALECIA Administration Gabapentin 300 mg 04/14/20 21:00 04/24/20 08:30 Gabapentin 300 Mg Cap PO 300 mg BID ALECAI Administration Hydralazine HCl 10 mg 04/16/20 09:40 04/17/20 01:25 Hydralazine 20 Mg/Ml Vial SLOW IVP 10 mg Q4H PRN Administration Blood Pressure SBP>150 Cefazolin Sodium/Dextrose 2 gm 50 mls @ 100 mls/hr 04/23/20 17:00 04/24/20 08:30 / Device IVPB 50 mls [id number] ALECIA Administration Insulin Human Lispro 0 units 04/12/20 19:58 04/24/20 05:32 Humalog 300 Units/3 Ml Vial SC 2 unit .MILD SLIDING SCALE PRN Administration Mild Correctional Scale Insulin Human Lispro 0 units 04/12/20 19:58 04/21/20 20:28 Humalog 300 Units/3 Ml Vial SC 2 unit .BEDTIME SLIDING SC PRN Administration Bedtime Correctional Scale Levothyroxine Sodium 100 mcg 04/15/20 06:00 04/24/20 05:30 Levothyroxine Sodium 100 Mcg Tab PO 100 mcg 0600 ALECIA Administration Loperamide HCl 4 mg 04/14/20 19:36 04/17/20 20:25 Loperamide Hcl 2 Mg Cap PO 4 mg QID PRN Administration Diarrhea/Loose Stools Metformin HCl 500 mg 04/14/20 21:00 04/24/20 08:31 Metformin 500 Mg Tab PO 500 mg BID ALECIA Administration Metoprolol Tartrate 75 mg 04/16/20 21:00 04/24/20 08:32 Metoprolol Tartrate 50 Mg Tab PO 75 mg BID ALECIA Administration Morphine Sulfate 2 mg 04/23/20 12:52 04/23/20 20:54 Morphine 2 Mg/Ml Vial SLOW IVP 2 mg Q4H PRN Administration Moderate to Severe Pain (6-10) Ondansetron HCl 4 mg 04/16/20 10:00 04/19/20 18:33 Ondansetron Pf 4 Mg/2 Ml Vial IVP 4 mg Q6H PRN Administration Nausea/Vomiting Saccharomyces Boulardii 250 mg 04/15/20 09:00 04/24/20 08:30 Saccharomyces Boulardii 250 Mg Cap PO 250 mg DAILY ALECIA Administration Tramadol HCl 50 mg 04/14/20 13:03 04/22/20 20:26 Tramadol Hcl 50 Mg Tab PO 50 mg Q4H PRN Administration Pain Hospitalist Exam Vitals: Vital Signs (12 hours) Temp Pulse Resp BP BP Pulse Ox 04/24/20 08:31 84 118/70 04/24/20 07:39 98.2 F 84 16 118/70 98 04/24/20 04:00 98.2 F 91 18 131/66 97 04/24/20 00:00 98.9 F 105 H 20 143/69 H 99 Weight Admit Weight 184 lb 3.2 oz Weight 184 lb 3.2 oz General Appearance: NAD, awake alert Eye: PERRL ENT: normocephalic atraumatic, no oropharyngeal lesions Neck: no JVD Neck - other findings: surgical incision on the back of the neck Heart: RRR, no murmur, no gallops, no rubs Respiratory: CTAB, no wheezes, no rales, no ronchi Gastrointestinal: soft, non-tender, non-distended Extremities: no cyanosis, no clubbing, no edema Musculoskeletal - other findings: can lift right arm slightly higher to 50 degrees, right leg to 30 degrees Psychiatric: normal affect, normal behavior, A&O x 3 Hosp A/P - Plan MRI cervical spine: advanced multilevel cervical spondylosis with multilevel central canal and neural foraminal narrowing MRI brain: no acute infarction. Age appropriate atrophy. Chronic small vessel ischemic changes Chest Xray: normal MRI lumbar spine: very severe stenosis at L4-L5 Hand X ray: reviewed both. 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 She was found to have a UTI as well and admitted UTI - urine culture growing reinaldo. She currently has jewell catheter. Jewell was removed, she failed voiding trial and jewell was replaced. She finished course of cephalexin. Severe lumbar spinal stenosis s/p C3-C7 laminectomy - MRi lumbar spine 03/2019 showed severe stenosis at L4-L5 and some urine retention. She is s/p C3 - C7 laminectomy -PT ordered and rehab screen . Likely needs inpatient rehab - she is on cefazolin per neurosurgery Right finger swelling/bilateral hand swelling - bilateral hand X ray showed extensive DJD , continue outpatient follow up History of heart murmur - ECHO showed diastolic dysfunction, no murmur Hypoglycemia -resolved. Blood sugars normalized. IV fluids with dextrose discontinued Type II diabetes- blood sugars controlled - continue metformin Anemia - stable Dispositon: likely needs inpatient rehab, rehab screen placed
[2020-04-24] MEDS: Atorvastatin Calcium 20 MG TAB PO SCH (20:35)
[2020-04-25] MEDS: CEFAZOLIN 2 GM in Premix Bag 1 BAG IVPB SCH ×3 (01:07→16:29)
[2020-04-25] MEDS: Levothyroxine Sodium 100 MCG TAB PO SCH (05:28)
[2020-04-25 07:04] LABS: Mean Corpuscular HGB CONC 32.3 g/dL (32.0-36.0); Mean Corpuscular Hemoglobin 27.3 pg (27.0-31.0); Mean Corpuscular Volume 84.5 fL (78.0-98.0); Mean Platelet Volume 7.7 fL (7.4-10.4); Platelet Count 399 thou/uL (130-400); RBC Distribution Width 14.4 % (11.5-14.5); Red Blood Cell (RBC) Count 3.28 mill/uL (4.20-5.40); White Blood Cell (WBC) Count 11.7 thou/uL (4.8-10.8)
[2020-04-25] MEDS: Ferrous Sulfate 325 MG TAB PO SCH ×2 (08:35→16:29)
[2020-04-25] MEDS: Gabapentin 300 MG CAP PO SCH ×2 (08:35→21:41)
[2020-04-25] MEDS: Famotidine 20 MG TAB PO SCH (08:35)
[2020-04-25] MEDS: Saccharomyces boulardii 250 MG CAP PO SCH (08:35)
[2020-04-25] MEDS: Amlodipine 10 MG TAB PO SCH (08:36)
[2020-04-25] MEDS: metFORMIN 500 MG TAB PO SCH ×2 (08:36→21:44)
[2020-04-25] MEDS: Metoprolol Tartrate 50 MG TAB PO SCH ×2 (08:36→21:43)
--- NOTE | 2020-04-25 08:58 | PRG ---
DATE OF SERVICE: 04/25/2020 I saw Cony Lopez in her hospital room this morning. She is 2 days out from a cervical decompressive laminectomy. Her drain output has dipped below our threshold for removal. No events were reported overnight. Ms. Lopez is being evaluated for inpatient rehabilitation, which is an excellent plan. Neurologically, she is stable to improve since before surgery. Ms. Lopez could be discharged to inpatient rehab once her medical issues are stabilized. The drain can be removed today. Job ID: [id number]
--- NOTE | 2020-04-25 15:31 | PDOC.HOSPP ---
- Subjective Encounter Date: 04/25/20 Encounter Time: 14:00 Subjective: Patient seen in follow-up for spinal stenosis. Reports that she has soreness at surgical site but she feels better. - Objective Vital Signs & Weight: Vital Signs (12 hours) Temp Pulse Resp BP BP BP Pulse Ox 04/25/20 11:45 98.1 F 75 16 142/80 H 99 04/25/20 08:36 82 133/82 04/25/20 08:00 98.3 F 82 16 133/82 99 04/25/20 06:02 98.1 F 87 18 140/83 97 Weight Admit Weight 184 lb 3.2 oz Weight 184 lb 3.2 oz I&O: 04/24/20 04/25/20 04/26/20 06:59 06:59 06:59 Intake Total 750 200 Output Total 590 1205 Balance 160 -1005 Result Diagrams: 04/25/20 06:32 04/24/20 08:45 Additional Labs: Accuchecks 04/25/20 04/25/20 04/24/20 11:46 06:06 20:23 POC Glucose 174 H 157 H 163 H 04/24/20 16:35 POC Glucose 196 H Labs and MAR reviewed by ga Hospitalist ROS - Review of Systems Cardiovascular: denies: chest pain, palpitations, orthopnea, paroxysmal noc. dyspnea, edema, light headedness Gastrointestinal: denies: nausea, vomiting, abdominal pain, diarrhea, constipation, melena, hematochezia Musculoskeletal: reports: back pain - Medication Medications: Active Medications Generic Name Dose Route Start Last Admin Trade Name Freq PRN Reason Stop Dose Admin Acetaminophen 650 mg 04/12/20 20:00 04/22/20 20:25 Acetaminophen 325 Mg Tab PO 650 mg Q4H PRN Administration Headache/Fever/Mild Pain (1-3) Acetaminophen/Codeine Phosphate 2 tab 04/23/20 12:51 04/24/20 23:06 Acetaminophen/Codeine 30-300mg Tablet PO 2 tab Q6H PRN Administration Moderate Pain (4-6) Amlodipine Besylate 10 mg 04/17/20 09:00 04/25/20 08:36 Amlodipine 10 Mg Tab PO 10 mg DAILY ALECIA Administration Atorvastatin Calcium 20 mg 04/14/20 21:00 04/24/20 20:35 Atorvastatin Calcium 20 Mg Tab PO 20 mg HS ALECIA Administration Dextrose/Water 25 gm 04/12/20 19:58 04/13/20 01:22 Dextrose 50% Abboject 50 Ml Syringe SLOW IVP 25 gm PRN PRN Administration Hypoglycemia Famotidine 20 mg 04/15/20 09:00 04/25/20 08:35 Famotidine 20 Mg Tab PO 20 mg DAILY ALECIA Administration Ferrous Sulfate 325 mg 04/13/20 17:00 04/25/20 08:35 Ferrous Sulfate 325 Mg Tab PO 325 mg BID-WM ALECIA Administration Gabapentin 300 mg 04/14/20 21:00 04/25/20 08:35 Gabapentin 300 Mg Cap PO 300 mg BID ALECIA Administration Hydralazine HCl 10 mg 04/16/20 09:40 04/17/20 01:25 Hydralazine 20 Mg/Ml Vial SLOW IVP 10 mg Q4H PRN Administration Blood Pressure SBP>150 Cefazolin Sodium/Dextrose 2 gm 50 mls @ 100 mls/hr 04/23/20 17:00 04/25/20 08:50 / Device IVPB 50 mls [id number] ALECIA Administration Insulin Human Lispro 0 units 04/12/20 19:58 04/24/20 16:53 Humalog 300 Units/3 Ml Vial SC 2 unit .MILD SLIDING SCALE PRN Administration Mild Correctional Scale Insulin Human Lispro 0 units 04/12/20 19:58 04/21/20 20:28 Humalog 300 Units/3 Ml Vial SC 2 unit .BEDTIME SLIDING SC PRN Administration Bedtime Correctional Scale Levothyroxine Sodium 100 mcg 04/15/20 06:00 04/25/20 05:28 Levothyroxine Sodium 100 Mcg Tab PO 100 mcg 0600 ALECIA Administration Loperamide HCl 4 mg 04/14/20 19:36 04/17/20 20:25 Loperamide Hcl 2 Mg Cap PO 4 mg QID PRN Administration Diarrhea/Loose Stools Metformin HCl 500 mg 04/14/20 21:00 04/25/20 08:36 Metformin 500 Mg Tab PO 500 mg BID ALECIA Administration Metoprolol Tartrate 75 mg 04/16/20 21:00 04/25/20 08:36 Metoprolol Tartrate 50 Mg Tab PO 75 mg BID ALECIA Administration Morphine Sulfate 2 mg 04/23/20 12:52 04/23/20 20:54 Morphine 2 Mg/Ml Vial SLOW IVP 2 mg Q4H PRN Administration Moderate to Severe Pain (6-10) Ondansetron HCl 4 mg 04/16/20 10:00 04/19/20 18:33 Ondansetron Pf 4 Mg/2 Ml Vial IVP 4 mg Q6H PRN Administration Nausea/Vomiting Saccharomyces Boulardii 250 mg 04/15/20 09:00 04/25/20 08:35 Saccharomyces Boulardii 250 Mg Cap PO 250 mg DAILY ALECIA Administration Hospitalist Exam Vitals: Vital Signs (12 hours) Temp Pulse Resp BP BP BP Pulse Ox 04/25/20 11:45 98.1 F 75 16 142/80 H 99 04/25/20 08:36 82 133/82 04/25/20 08:00 98.3 F 82 16 133/82 99 04/25/20 06:02 98.1 F 87 18 140/83 97 Weight Admit Weight 184 lb 3.2 oz Weight 184 lb 3.2 oz General - other findings: Obese ENT: no oropharyngeal lesions Neck: supple Heart: RRR Respiratory: CTAB Gastrointestinal: soft, non-tender Skin: no rashes Psychiatric: normal affect, normal behavior Hosp A/P - Plan Severe lumbar spinal stenosis s/p C3-C7 laminectomy -Underwent lumbar laminectomy during this hospitalization -Likely needs inpatient rehab - she is on cefazolin per neurosurgery Type II diabetes- - continue metformin -Continue Accu-Cheks and insulin sliding scale. Right finger swelling/bilateral hand swelling - bilateral hand X ray showed extensive DJD , continue outpatient follow up Anemia - stable UTI - urine culture growing reinaldo. She has been treated with cephalexin. She had a Guaman catheter replaced because of urinary retention. Hypoglycemia -resolved. Dispositon: likely needs inpatient rehab, rehab screen placed
--- NOTE | 2020-04-25 15:37 | EKG ---
Test Reason : Blood Pressure : / mmHG Vent. Rate : 120 BPM Atrial Rate : 120 BPM P-R Int : 136 ms QRS Dur : 082 ms QT Int : 324 ms P-R-T Axes : 082 010 067 degrees QTc Int : 457 ms Sinus tachycardia Otherwise normal ECG Confirmed by SAVANNAH YU ([id number]), sports editor CAMRON CAREY ([id number]) on 04/25/2020 3:36:51 PM Referred By: Confirmed By:SAVANNAH YU
[2020-04-25] MEDS: Acetaminophen 325 MG TAB PO PRN (16:39)
[2020-04-25] MEDS: HumaLOG 300 UNITS/3 ML VIAL SC PRN (21:00)
[2020-04-25] MEDS: Atorvastatin Calcium 20 MG TAB PO SCH (21:42)
[2020-04-26] MEDS: CEFAZOLIN 2 GM in Premix Bag 1 BAG IVPB SCH ×2 (00:10→08:10)
[2020-04-26 05:36] VITALS: BMI 38.3
[2020-04-26] MEDS: Levothyroxine Sodium 100 MCG TAB PO SCH (06:37)
[2020-04-26] MEDS: HumaLOG 300 UNITS/3 ML VIAL SC PRN (06:38)
[2020-04-26] MEDS: Metoprolol Tartrate 50 MG TAB PO SCH (08:05)
[2020-04-26] MEDS: Famotidine 20 MG TAB PO SCH (08:05)
[2020-04-26] MEDS: Saccharomyces boulardii 250 MG CAP PO SCH (08:05)
[2020-04-26] MEDS: Acetaminophen/Codeine 30-300mg Tablet PO PRN ×2 (08:08→14:53)
[2020-04-26] MEDS: Ferrous Sulfate 325 MG TAB PO SCH (08:09)
[2020-04-26] MEDS: Gabapentin 300 MG CAP PO SCH (08:09)
[2020-04-26] MEDS: Amlodipine 10 MG TAB PO SCH (08:09)
[2020-04-26] MEDS: metFORMIN 500 MG TAB PO SCH (08:10)
--- NOTE | 2020-04-26 08:24 | PRG ---
DATE OF SERVICE: 04/26/2020 I saw Ms. Lopez in her hospital room this morning. We cut the drain out yesterday. She is still very happy with the results of her cervical laminectomy. She can now open her hands and move her fingers. She has not regained all her dexterity, but this is a marked improvement from before surgery. She is awaiting rehab placement. The maximum temperature I see recorded is 98.9 degrees Fahrenheit in the last 24 hours. Blood pressures have been between 118 and 153. There is good improvement in her neurological function from before surgery. There are no new deficits compared to yesterday. Ms. Lopez is awaiting inpatient rehabilitation. Physical therapy and occupational therapy need to see her while she is in the hospital. Job ID: [id number] MTDD
--- NOTE | 2020-04-26 12:58 | PDOC.DS.DS ---
Provider Date of Admission: 04/13/20 12:24 Date of Discharge: 04/26/20 Admitting Provider: Marylin Sandoval MD Consultations: Neurosurgery (Dr. Snow) Primary Care Physician: JASS PETE MD Course Hospital Course: Discharge diagnosis: 1. Acute kidney injury 2. Urinary tract infection 3. Sepsis secondary to urinary tract infection 4. Severe spinal stenosis 5. Hyponatremia 6. COVID-19 test negative 7. Hypokalemia Hospital course: Patient is a pleasant 79-year-old lady who was admitted to the hospital on April 12, 2020 for acute kidney failure and urinary tract infection. She was also hypoglycemic. She received IV antibiotics. Final urine culture grew presumptive Shruthi albicans. She continued to improve clinically. However, she had generalized weakness. Work-up of progressive weakness in the extremities revealed severe stenosis of C-spine from C3-C5 as well as C6-C7. In the lumbar spine, she also had severe central stenosis from L2-L5. She was seen by neurosurgery. On April 23 she underwent C3-C7 laminectomy. She was seen by therapy services. She is being discharged to inpatient rehab for further management. 2D echocardiogram done during this hospitalization showed left ventricle ejection fraction of 55 to 60% and normal size left atrium. She had impaired relaxation compatible with diastolic dysfunction. Many thanks for allowing me to participate in your patient's care. Please feel free to contact me with any questions or concerns. Discharge destination: Inpatient rehab Total amount of time spent coordinating this discharge: 33 minutes Resuscitation Status: 04/16/20 11:37 Resuscitation Status Routine Resuscitation Status: FULL: Full Resuscitation Lab Results: 04/25/20 06:32 04/24/20 08:45 Abnormal Lab Results - Last 48 hrs 04/25/20 06:32: WBC 11.7 H, RBC 3.28 L, Hgb 9.0 L, Hct 27.7 L Microbiology - Entire Visit 04/18/20 20:00 Stool Stool Culture - Final 04/18/20 20:00 Stool Stool Lactoferrin - Final 04/18/20 20:00 Stool Rapid Parasite Screen - Final 04/18/20 20:00 Stool Campylobacter Antigen Assay - Final 04/18/20 20:00 Stool Shiga Toxin Test - Final 04/12/20 19:09 Venous blood - Right Arm Blood Culture - Final NO GROWTH IN 5 DAYS 04/12/20 19:14 Venous blood - Left Hand Blood Culture - Final NO GROWTH IN 5 DAYS 04/12/20 16:20 Urine jewell catheter Urine Culture - Final Presumptive Shruthi albicans 04/14/20 10:52 Stool C. difficile GDH Antigen & Toxins - Final Vitals: Vital Signs (12 hours) Temp Pulse Resp BP BP BP Pulse Ox 04/26/20 08:09 86 150/79 H 04/26/20 07:43 98.2 F 86 20 150/79 H 99 04/26/20 04:00 98.3 F 79 18 147/65 H 98 Weight Admit Weight 184 lb 3.2 oz Weight 190 lb Physical Exam: The patient was seen and examined on the day of discharge. Patient denies chest pain or shortness of breath. Vital signs are stable. S1 and S2 are heard. Lungs are clear to auscultation bilaterally. Plan Home Medications: Medication Instructions Recorded Confirmed Type Allopurinol [Zyloprim] 300 mg PO DAILY 04/05/20 04/13/20 History Amlodipine [Norvasc] 1 tab PO HS 04/05/20 04/13/20 History Aspirin 1 tab PO HS 04/05/20 04/13/20 History Atorvastatin Calcium [Lipitor] 1 tab PO HS 04/05/20 04/13/20 History Famotidine 1 tab PO DAILY 04/05/20 04/13/20 History Gabapentin 1 tab PO BID 04/05/20 04/13/20 History HumaLOG [HumaLOG Vial] 2 - 6 units SC TID-WM 04/05/20 04/13/20 History Hydrochlorothiazide 1 tab PO DAILY 04/05/20 04/13/20 History Levothyroxine Sodium 1 tab PO DAILY 04/05/20 04/13/20 History [Levothyroxine] Lisinopril 1 tab PO DAILY 04/05/20 04/13/20 History Metoprolol Tartrate 2 tab PO DAILY 04/05/20 04/13/20 History Oxybutynin [Ditropan] 1 tab PO BID PRN 04/05/20 04/13/20 History glipiZIDE [Glipizide] 1 tablet PO BID 04/05/20 04/13/20 History metFORMIN [Glucophage] 1 tab PO BID 04/05/20 04/13/20 History traMADol HCl [Tramadol HCl] 1 tab PO Q4HR PRN 04/05/20 04/13/20 History Allergies: No Known Drug Allergies Allergy (Verified 04/05/20 03:51) Activity:: Activity as Tolerated Nourishment:: Diabetic Diet Referrals: JASS PETE MD [Primary Care Provider] - 7 Days Lis Michael [Allied Health Professional] - (FOLLOW UP INSTRUCTED ) Disposition: ALF FACILITY Quality CORE MEASURES:: N/A
[2020-04-26 13:18] VITALS: BP 148/72; TEMP 98.1
--- NOTE | 2020-04-29 05:08 | PQF ---
CLINICAL DOCUMENTATION CLARIFICATION FORM: Dear : Jame Aldrich Date / Time: 04/29/2020 0507 Please exercise your independent, professional judgment in responding to the clarification form. 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 Thank You. To be completed by CDI/Coding staff for physician review: Present Clinical Indicators - Signs / Symptoms / Labs Results and Location in Medical Record [x] Spinal MRI : Cervical spondylosis with central canal and neural foraminal narrowing Imaging 04/13 Dr Laughlin [x] Bedbound H&P p2 04/12 Rdz PA-C [x] Right sided weakness PN p2 04/15 Dr Tineo [x] She does have weakness on all her extremities more on right than left PN p2 04/15 Dr Tineo [x] She has had a profound quadriparesis PN p1 04/20 Dr Snow [x] Still has weakness in her arm and leg HPN p1 04/20 Dr Payne Present Risk Factors Results and Location in Medical Record [x] 79 year-old Female H&P p1 04/12 Rdz PA-C [x] DM H&P p1 04/12 Rdz PA-C [x] Obesity H&P p1 04/12 Rdz PA-C [x] Cervical stenosis Consult Dr Michael 04/19 Present Treatments Results and Location in Medical Record [x] Cervical Laminectomy Operative report 04/23 Dr Snow [x] Neurosurgeon consult Consult Dr Michael 04/19 [x] PT/OT Order 04/19 [x] Neuro monitoring Order 04/19 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
== END 2020-04-26 15:03 | DRG 853 ==
LOC: ERS 16:23 → ERHOLD 18:36 → OBSVTOIN 04-13 12:24 → T4-B 04-13 14:19
PROVIDERS: ADMIT Internal Medicine; ATTEND Internal Medicine
PROC: 01N10ZZ Release Cervical Nerve, Open Approach (ICD-10-PCS; principal; 2020-04-23)
DX: B37.7 Candidal sepsis (principal); R53.2 Functional quadriplegia; N17.9 Acute kidney failure, unspecified; E87.1 Hypo-osmolality and hyponatremia; N30.00 Acute cystitis without hematuria; M48.02 Spinal stenosis, cervical region; Z20.822 Contact with and (suspected) exposure to COVID-19; E87.6 Hypokalemia; M48.061 Spinal stenosis, lumbar region without neurogenic claudication; E78.5 Hyperlipidemia, unspecified; G47.33 Obstructive sleep apnea (adult) (pediatric); K21.9 Gastro-esophageal reflux disease without esophagitis; M10.9 Gout, unspecified; M19.90 Unspecified osteoarthritis, unspecified site; N32.81 Overactive bladder; E83.42 Hypomagnesemia; E11.649 Type 2 diabetes mellitus with hypoglycemia without coma; E11.22 Type 2 diabetes mellitus with diabetic chronic kidney disease; N18.9 Chronic kidney disease, unspecified; E86.0 Dehydration; D63.1 Anemia in chronic kidney disease; I12.9 Hypertensive chronic kidney disease with stage 1 through stage 4 chronic kidney disease, or unspecified chronic kidney disease; M43.02 Spondylolysis, cervical region; R19.7 Diarrhea, unspecified; R33.9 Retention of urine, unspecified; E66.9 Obesity, unspecified; Z68.38 Body mass index [BMI] 38.0-38.9, adult; Z87.440 Personal history of urinary (tract) infections; Z79.899 Other long term (current) drug therapy; Z79.82 Long term (current) use of aspirin; Z79.890 Hormone replacement therapy; Z79.4 Long term (current) use of insulin
CPT/HCPCS: 36415; 36416; 70551; 71045; 72141; 76000; 80048; 80053; 81003; 81015; 82607; 82728; 82746; 83540; 83550; 83630; 83735; 85025; 85027; 85610; 85730; 87040; 87045; 87046; 87086; 87324; 87328; 87329; 87427; 87449; 87635; 93005; 93306; 96365; 96367; 96375; G0378; J0360; J0690; J0692; J0696; J1100; J1644; J1815; J2270; J2405; J2704; J2765; J3010; J3370; J3420; J3475; J3490; J7050; U0003; U0005

== ENCOUNTER 2020-07-17 09:18 | Outpatient (CLI) | payer MEDICARE, BC ==
[2020-07-17 11:15] LABS: Hemoglobin 11.8 g/dL (12.0-15.5); Mean Corpuscular HGB CONC 32.2 g/dL (32.0-36.0); Mean Corpuscular Hemoglobin 27.1 pg (27.0-33.0); Mean Corpuscular Volume 84.4 fl (81.6-98.3); Mean Platelet Volume 11.3 fl (7.4-10.4); Platelet Count 190 10x3/uL (150-450); RBC Distribution Width 17.1 % (11.5-14.5); Red Blood Cell (RBC) Count 4.35 10x6/uL (3.90-5.03); White Blood Cell (WBC) Count 8.1 10x3/uL (3.5-10.5)
[2020-07-17 11:36] LABS: Anion Gap 15 mmol/L (10-20); BUN (Urea Nitrogen) 26 mg/dL (9.8-20.1); Calc. Creatinine Clearance 0 mL/min (70-130); Carbon Dioxide 18 mmol/L (23-31); Chloride 113 mmol/L (98-107); Glucose 83 mg/dL (83-110); Potassium 4.4 mmol/L (3.5-5.1); Sodium 142 mmol/L (136-145)
[2020-07-17 20:55] LABS: SARS-CoV-2 PCR by NAA Not Detected (NotDetected)
== END 2020-07-17 09:19 | disposition home or self-care (01) ==
LOC: LABBT 09:18
PROVIDERS: ATTEND Neurological Surgery
DX: Z01.818 Encounter for other preprocedural examination (principal); Z20.822 Contact with and (suspected) exposure to COVID-19; M48.062 Spinal stenosis, lumbar region with neurogenic claudication
CPT/HCPCS: 80048; 85027; 93005; U0003; U0005; 87635; 93010

== ENCOUNTER 2020-07-22 06:02 | Observation (INO) | payer MEDICARE, BC ==
[2020-07-22] MEDS ORDERED: Fentanyl 100 MCG/2 ML VIAL ONE ×3 (06:47→09:20)
[2020-07-22] MEDS ORDERED: Lidocaine 1% PF 5 ML VIAL ONE (07:29)
[2020-07-22] MEDS ORDERED: Rocuronium Bromide 10 MG/ML (10ML VIAL) ONE (07:29)
[2020-07-22] MEDS ORDERED: Ondansetron PF 4 MG/2 ML Vial ONE (07:29)
[2020-07-22] MEDS ORDERED: Glycopyrrolate 0.2 MG/ML 5 ML SYRINGE ONE (07:29)
[2020-07-22] MEDS ORDERED: PROPOFOL 200 MG/20 ML VIAL ONE (07:29)
[2020-07-22] MEDS ORDERED: SUGAMMADEX SODIUM 200 MG/2 ML VIAL ONE (08:42)
[2020-07-22] MEDS ORDERED: HYDROmorphone 0.5 MG/0.5 ML SYRINGE ONE ×2 (09:46→10:14)
[2020-07-22] MEDS ORDERED: diphenhydrAMINE 50 MG/ML VIAL ONE (10:28)
[2020-07-22 14:14] VITALS: BMI 37.1
[2020-07-22] MEDS ORDERED: Ondansetron PF 4 MG/2 ML Vial IVP PRN (14:55)
[2020-07-22] MEDS ORDERED: Promethazine 25 MG TAB PO PRN (15:00)
[2020-07-22] MEDS ORDERED: diphenhydrAMINE 50 MG/ML VIAL IVP PRN (15:00)
[2020-07-22] MEDS ORDERED: diphenhydrAMINE 25 MG CAP PO PRN (15:00)
[2020-07-22] MEDS ORDERED: Morphine 4 MG/ML VIAL SLOW IVP PRN ×2 (15:00→15:15)
[2020-07-22] MEDS ORDERED: Promethazine HCl 25 MG/ML VIAL IM PRN (15:00)
[2020-07-22] MEDS ORDERED: Mag-Al 1200 mg/1200 mg/30 ML UDCUP PO PRN (15:00)
[2020-07-22] MEDS ORDERED: Milk Of Magnesia 30 ML UDCUP PO PRN (15:00)
[2020-07-22] MEDS ORDERED: tiZANidine HCl 4 MG TAB PO PRN (15:00)
[2020-07-22] MEDS ORDERED: HYDROcodone/Acetaminophen 10/325 mg Tablet PO PRN ×2 (15:00)
[2020-07-22] MEDS ORDERED: Morphine 2 MG/ML VIAL SLOW IVP PRN (15:00)
[2020-07-22] MEDS ORDERED: Promethazine HCl 12.5 MG SUPP PR PRN (15:00)
[2020-07-22] MEDS ORDERED: traMADol HCl 50 MG TAB PO PRN (15:00)
[2020-07-22] MEDS ORDERED: Oxybutynin 5 MG TAB PO PRN ×2 (15:16→20:13)
[2020-07-22] MEDS: CEFAZOLIN 2 GM in Premix Bag 1 BAG IVPB SCH ×2 (15:20→23:17)
[2020-07-22] MEDS: Sodium Chloride 0.9% 1,000 ML IV SCH (15:22)
[2020-07-22] MEDS ORDERED: glipiZIDE 10 MG TAB PO SCH (16:30)
[2020-07-22] MEDS ORDERED: Cepastat Lozenges 1 LOZ PO PRN (16:49)
[2020-07-22] MEDS: traMADol HCl 50 MG TAB PO PRN (16:56)
[2020-07-22] MEDS ORDERED: metFORMIN 500 MG TAB PO SCH (17:00)
[2020-07-22] MEDS ORDERED: Insulin Regular 300 UNITS/3 ML VIAL SC PRN (20:15)
[2020-07-22] MEDS ORDERED: Dextrose 5% in Water 1,000 ML IV PRN (20:15)
[2020-07-22] MEDS ORDERED: HumaLOG 300 UNITS/3 ML VIAL SC PRN (20:15)
[2020-07-22] MEDS ORDERED: Dextrose 50% Abboject 50 ML SYRINGE SLOW IVP PRN (20:15)
[2020-07-22] MEDS ORDERED: Amlodipine 10 MG TAB PO SCH ×2 (21:00)
[2020-07-22] MEDS ORDERED: Atorvastatin Calcium 20 MG TAB PO SCH ×2 (21:00)
[2020-07-22] MEDS ORDERED: Metoprolol Tartrate 50 MG TAB PO SCH ×2 (21:00)
[2020-07-22] MEDS ORDERED: Gabapentin 300 MG CAP PO SCH (21:00)
[2020-07-22] MEDS ORDERED: Lisinopril 20 MG TAB PO SCH ×2 (21:00)
[2020-07-22] MEDS ORDERED: Guaifenesin DM 100-10/5 ML UDCUP PO PRN (22:12)
[2020-07-22] MEDS ORDERED: Acetaminophen 325 MG TAB PO PRN (22:12)
[2020-07-22] MEDS: Gabapentin 300 MG CAP PO SCH (23:09)
[2020-07-23] MEDS: Sodium Chloride 0.9% 1,000 ML IV SCH ×2 (03:33→16:52)
[2020-07-23] MEDS: traMADol HCl 50 MG TAB PO PRN ×2 (04:34→12:19)
[2020-07-23] MEDS ORDERED: Levothyroxine Sodium 100 MCG TAB PO SCH ×2 (06:00)
[2020-07-23 06:55] LABS: #Basophils 0.1 thou/uL (0.0-0.2); #Eosinphils 0.2 thou/uL (0.0-0.7); #Lymphocytes 1.7 thou/uL (1.20-3.40); #Monocytes 0.8 thou/uL (0.11-0.59); #Neutrophils 6.8 thou/uL (1.40-6.50); %Basophils 0.8 % (0.0-1.0); %Eosinophils 1.9 % (0.0-10.0); %Lymphocytes 17.9 % (21.0-51.0); %Monocytes 8.5 % (0.0-10.0); Hemoglobin 11.8 g/dL (12.0-16.0); Mean Corpuscular HGB CONC 33.6 g/dL (32.0-36.0); Mean Corpuscular Hemoglobin 28.3 pg (27.0-31.0); Mean Corpuscular Volume 84.2 fL (78.0-98.0); Mean Platelet Volume 10.7 fL (7.4-10.4); Platelet Count 152 thou/uL (130-400); RBC Distribution Width 16.8 % (11.5-14.5); Red Blood Cell (RBC) Count 4.19 mill/uL (4.20-5.40); White Blood Cell (WBC) Count 9.5 thou/uL (4.8-10.8)
[2020-07-23 06:56] LABS: Hemoglobin A1c 5.7 % (4.0-6.0)
[2020-07-23 07:10] LABS: Anion Gap 14 mmol/L (10-20); BUN (Urea Nitrogen) 16 mg/dL (9.8-20.1); Calc. Creatinine Clearance 69 mL/min (70-130); Calcium 9.7 mg/dL (7.8-10.44); Carbon Dioxide 18 mmol/L (23-31); Chloride 112 mmol/L (98-107); Glucose 78 mg/dL (83-110); Sodium 140 mmol/L (136-145)
[2020-07-23] MEDS: glipiZIDE 10 MG TAB PO SCH ×2 (07:31→16:19)
[2020-07-23] MEDS ORDERED: Potassium Chloride 20 MEQ TAB PO SCH (08:00)
[2020-07-23] MEDS ORDERED: Potassium Bicarbonate/Cit Ac 20 MEQ TAB PO SCH (08:00)
[2020-07-23] MEDS: CEFAZOLIN 2 GM in Premix Bag 1 BAG IVPB SCH ×2 (08:27→16:19)
[2020-07-23] MEDS: Gabapentin 300 MG CAP PO SCH (08:27)
[2020-07-23] MEDS: metFORMIN 500 MG TAB PO SCH ×2 (08:27→16:19)
[2020-07-23] MEDS ORDERED: Colchicine 0.6 MG TAB PO SCH ×2 (09:00)
[2020-07-23] MEDS ORDERED: Hydrochlorothiazide 25 MG TAB PO SCH ×2 (09:00)
[2020-07-23] MEDS ORDERED: Famotidine 20 MG TAB PO SCH (09:00)
[2020-07-23] MEDS ORDERED: Potassium Chloride 10 MEQ TAB PO SCH (09:00)
[2020-07-23] MEDS ORDERED: Allopurinol 300 MG TAB PO SCH (09:00)
[2020-07-23 15:35] VITALS: BP 108/70; TEMP 97.8
== END 2020-07-23 19:06 ==
LOC: SDC 06:02 → SURG B 09:27
PROVIDERS: ADMIT Neurological Surgery; ATTEND Internal Medicine
PROC: 01NB0ZZ Release Lumbar Nerve, Open Approach (ICD-10-PCS; principal; 2020-07-22)
DX: M48.062 Spinal stenosis, lumbar region with neurogenic claudication (principal); I12.9 Hypertensive chronic kidney disease with stage 1 through stage 4 chronic kidney disease, or unspecified chronic kidney disease; E11.22 Type 2 diabetes mellitus with diabetic chronic kidney disease; N18.9 Chronic kidney disease, unspecified; K21.9 Gastro-esophageal reflux disease without esophagitis; E03.9 Hypothyroidism, unspecified; E66.9 Obesity, unspecified; Z68.37 Body mass index [BMI] 37.0-37.9, adult; Z87.891 Personal history of nicotine dependence; Z79.84 Long term (current) use of oral hypoglycemic drugs; Z79.899 Other long term (current) drug therapy; Z95.820 Peripheral vascular angioplasty status with implants and grafts; Z99.3 Dependence on wheelchair
CPT/HCPCS: 63047; 63048 ×2; 76000; 80048; 82962 ×2; 83036; 85025; 96365; 96375; 97110; 97139 ×2; 97530; G0378 ×2; 36415; 36416; J0690; J1170; J1200; J2270; J2405; J2704; J3010; J3370; J3490